=== PATIENT | male | born 1945 | race Caucasian/White ===

== ENCOUNTER → 2016-07-09 | Outpatient (CLI) | payer BC, OTHER, MEDICARE ==
[~2016-07-09] MED LIST: /TAMS4CA PO; ACTE80IN IV; AMAN10CA PO; CARB25TA OR; CARB25TA PO; FOLI1TAB2 PO; FOLI1TAB86 PO; IBUP-1114 PO; IBUP200T2 PO; MIRA1TAB3 PO; MODA200T PO; PRAM1TAB PO; PROP10TA56 PO; PROP10TA8 PO; SELEGILINE PO; SULF500T2 PO; TYLE325T5 PO; [UNRECOGNIZED DRUG - CODE] PO; [UNRECOGNIZED DRUG - CODE] PO; [UNRECOGNIZED DRUG - OTHER] PO; [UNRECOGNIZED DRUG - OTHER] PO
[2016-07-09 11:43] LABS: MEAN CORPUSCULAR HEMOGLOBIN 33.8 pg (27.0-33.0); MEAN CORPUSCULAR HGB CONC 33.7 g/dl (32.0-36.5); MEAN CORPUSCULAR VOLUME 100.2 fl (80.0-96.0); WHITE BLOOD COUNT 3.2 K/mm3 (4.0-10.0)
--- NOTE | 2016-07-09 11:49 | REP ---
Chest two views HISTORY: Arthritis Comparison: 03/27/2012 The lungs are clear. The cardiac silhouette is enlarged. The pulmonary vasculature is normal in appearance. The bony structure is intact. IMPRESSION: Cardiomegaly. Signed by Tab Ferguson MD 07/09/2016 11:39 A
[2016-07-09 12:01] LABS: INR 1.05
[2016-07-09 12:58] LABS: ALBUMIN 3.9 GM/DL (3.2-5.2); ALBUMIN/GLOBULIN RATIO 1.63 (1.00-1.93); ALKALINE PHOSPHATASE 106 U/L (45-117); ALT/SGPT 12 U/L (12-78); ANION GAP 8 MEQ/L (8-16); AST/SGOT 13 U/L (15-37); BILIRUBIN,TOTAL 0.7 MG/DL (0.2-1.0); BLOOD UREA NITROGEN 22 MG/DL (7-18); CALCIUM LEVEL 9.1 MG/DL (8.8-10.2); CARBON DIOXIDE LEVEL 29 MEQ/L (21-32); CHLORIDE LEVEL 105 MEQ/L (98-107); GLOMERULAR FILTRATION RATE > 60.0 (>42); GLUCOSE, FASTING 79 MG/DL (83-110); POTASSIUM SERUM 4.3 MEQ/L (3.5-5.1); SODIUM LEVEL 142 MEQ/L (136-145); TOTAL PROTEIN 6.3 GM/DL (6.4-8.2)
--- NOTE | 2016-07-10 05:27 | ECGEPIP ---
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
== END ==
LOC: M ADMPAT 09:28
PROVIDERS: ATTEND Orthopaedic Surgery
DX: Z01.818 Encounter for other preprocedural examination (principal); M17.12 Unilateral primary osteoarthritis, left knee

== ENCOUNTER 2016-07-23 05:43 | Inpatient (IN) | payer BC, OTHER, MEDICARE ==
[2016-07-09 10:15] VITALS: BP 97/60
--- NOTE | 2016-07-21 10:33 | HPE ---
DATE OF ADMISSION: 07/23/2016 ATTENDING PHYSICIAN: Tacos Morgan MD CHIEF COMPLAINT: Left knee pain and stiffness. HISTORY: The patient is a pleasant 70-year-old male with progressively worsening left knee pain and stiffness. He has failed to improve with conservative management. He continues to have left knee pain with weightbearing activities and activities of daily living. He has consented for a left total knee arthroplasty by Dr. Morgan. Medical clearance obtained and reviewed. Medical optimization completed by Dr. Hair. CURRENT MEDICATIONS: - ibuprofen 800 mg daily - propranolol 10 mg orally as needed for tremors - sinemet 25/100 mcg two tablets at breakfast, two at lunch, one at dinnertime, one at bedtime - mirapex 1 mg three times daily - amantidine 100 mg three times daily - sulfasalazine 500 mg three tablets twice daily - folic acid 1 mg daily - Actemra 80 mg/4 mL solution intravenous (IV) monthly - Viagra 100 mg tablet, 1/2 to one tablet once daily as needed - UltraPro 5 mg capsules daily ALLERGIES: The patient is on an MAOI-B inhibitor. 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 The patient is taking immunosuppressants. SURGICAL HISTORY: Left wrist fractures, colonoscopy, left inguinal hernia repair, transurethral resection of prostate (TURP). SOCIAL HISTORY: The patient is a former smoker. Quit over 10 years ago. He does use alcohol, approximately 2-4 times a month. REVIEW OF SYSTEMS: The patient denies fevers, chills, nausea, vomiting, or diarrhea. He denies chest pain, shortness of breath, lightheadedness, dizziness , or headaches. He denies any recent upper respiratory tract infection or urinary tract infection symptoms. He does have continued left knee pain with weightbearing activities. EXAMINATION: A well nourished, well developed male, in no apparent distress. NECK: Supple without lymphadenopathy or jugular venous distention. LUNGS: Clear to auscultation bilaterally. No rales or wheezes. HEART: Regular rate and rhythm. ABDOMEN: Bowel sounds present. Abdomen soft and nontender to palpation. MUSCULOSKELETAL: Inspection of the left knee revealed no gross abnormalities. His skin is intact. There was tenderness to palpation along the medial joint line. The patient can extend to 5 degrees and flex to 95 degrees. He does have normal strength in the left lower extremity. He is walking today with a slight limp favoring the left side. VITAL SIGNS: Height 68 inches. Weight 194 pounds. Temperature 96.8 degrees Fahrenheit. Blood pressure is 130/90. Pulse is 64. Respirations are 12. LABORATORY DATA: Chest x-ray shows cardiomegaly. Electrocardiogram (EKG) shows sinus bradycardia with a left anterior fascicular block, incomplete right bundle branch block, nonspecific ST-T wave abnormalities. No significant change when compared to tracing from March 2012. Nasal and sinus culture shows normal omar. Urinalysis positive for only trace ketones and small amount of mucus. Urine culture shows no growth of clinical significance. Comprehensive metabolic profile: Fasting glucose decreased at 79, blood urea nitrogen elevated at 22, creatinine for GFR 0.90. Glomerular filtration rate greater than 60. Sodium 142, potassium 4.3, chloride 105, carbon dioxide 29, anion gap 8, calcium 9.1, AST decreased at 13, ALT 12, alkaline phosphatase 106, total bilirubin 0.7, total protein decreased at 6.3, albumin 3.9, albumin globulin ratio 1.63. Complete blood count, prothrombin time 13.8, INR 1.05, erythrocyte sedimentation rate 1, WBC is decreased at 3.2, RBC is 4.37, hemoglobin 14.8, hematocrit 43.8, mean corpuscular volume elevated at 100.2, mean corpuscular hemoglobin elevated at 33.8, red cell distribution was13, platelet count 208. IMPRESSION: Left knee degenerative arthritis. PLAN: The patient has consented for an elective left total knee arthroplasty with Dr. Morgan. Medical optimization received from Dr. Hair. MARVIN
[~2016-07-23] VITALS: Ht 175.3 cm; Wt 86.0 kg
[2016-07-23] MEDS ORDERED: ACETAMINOPHEN 500 MG TAB PO ONE (06:00)
[2016-07-23] MEDS ORDERED: LR 1,000 ML IV SCH ×2 (06:00→09:45)
[2016-07-23] MEDS ORDERED: fentaNYL 100 MCG/2 ML INJECTION (J3010) As Ordered ONE ×2 (06:38→07:21)
[2016-07-23] MEDS ORDERED: MIDAZOLAM INJ 2 MG/2 ML VIAL (J2250) As Ordered ONE (06:38)
[2016-07-23] MEDS ORDERED: ROPIvacaine 0.5% 30 ML INJECTION (J2795) As Ordered ONE (07:00)
[2016-07-23] MEDS ORDERED: TRANEXAMIC ACID 100 MG/ML 10ML VIAL As Ordered ONE (07:00)
[2016-07-23] MEDS ORDERED: BUPIVACAINE HCL 0.5% 10 ML VIAL As Ordered ONE ×2 (07:01→07:41)
[2016-07-23] MEDS ORDERED: ceFAZolin 1GM INJ (J0690) As Ordered ONE (07:01)
[2016-07-23] MEDS ORDERED: EPINEPHrine INJ 1 MG/ML 1ML VIAL/AMP As Ordered ONE (07:01)
[2016-07-23] MEDS ORDERED: MIDAZOLAM INJ 2 MG/2 ML VIAL (J2250) IV ONE (07:45)
[2016-07-23] MEDS ORDERED: fentaNYL 100 MCG/2 ML INJECTION (J3010) IV ONE (07:45)
[2016-07-23] MEDS ORDERED: PROPOFOL 500 MG/50 ML VIAL As Ordered ONE (08:18)
[2016-07-23] MEDS ORDERED: ONDANSETRON 4MG/2ML VIAL (J2405) As Ordered ONE (08:18)
[2016-07-23] MEDS ORDERED: LIDOCAINE 2% INJ 100 MG/5 ML SDV (FOR ANES.) As Ordered ONE (08:18)
[2016-07-23] MEDS ORDERED: ROPIvacaine 0.5% 30 ML INJECTION (J2795) ONE (08:55)
[2016-07-23] MEDS ORDERED: LIDOCAINE 1% MDV 20ML VIAL ONE (08:55)
[2016-07-23] MEDS ORDERED: dexameTHASONE 10 MG/1 ML VIAL PRES.FREE (J1100) ONE (08:55)
[2016-07-23] MEDS ORDERED: MORPHINE PCA 1MG/ML 100ML CADD As Ordered ONE (09:28)
[2016-07-23] MEDS ORDERED: PATIENT IS CURRENTLY ON AN ON-Q PAIN BUSTER PAIN RELIEF SYSTEM XX SCH (09:45)
[2016-07-23] MEDS ORDERED: NALBUPHINE HCL 10 MG/ML AMP (J2300) IV PRN (09:45)
[2016-07-23] MEDS ORDERED: NALOXONE INJ 0.4 MG/1 ML VIAL (J2310) IV PRN (09:45)
[2016-07-23] MEDS ORDERED: FLEET ENEMA PR PRN (09:45)
[2016-07-23] MEDS ORDERED: EPIDURAL/PCA KEYS XX PRN (09:45)
[2016-07-23] MEDS ORDERED: HYDROmorphone HCL 1 MG/ML SYRINGE (J1170) IV PRN (09:45)
[2016-07-23] MEDS ORDERED: PERCOCET 5MG/325MG TAB PO PRN (09:45)
[2016-07-23] MEDS ORDERED: ACETAMINOPHEN TAB 650MG DOSE (2X325MG) PO PRN (09:45)
[2016-07-23] MEDS ORDERED: diphenhydrAMINE INJ 50MG/ML VIAL (J1200) IV PRN (09:45)
[2016-07-23] MEDS ORDERED: MORPHINE PCA 1MG/ML 100ML CADD IV PRN (09:45)
[2016-07-23] MEDS ORDERED: fentaNYL 100 MCG/2 ML INJECTION (J3010) IV PRN (09:45)
[2016-07-23] MEDS ORDERED: ONDANSETRON 4MG/2ML VIAL (J2405) IV PRN ×2 (09:45)
--- NOTE | 2016-07-23 10:24 | RO ---
DATE OF PROCEDURE: 07/23/2016 PREPROCEDURE DIAGNOSIS: Left knee degenerative arthritis. POSTPROCEDURE DIAGNOSIS: Left knee degenerative arthritis. PROCEDURE: Left total knee arthroplasty using a size 4 cruciate retaining femoral component with a size 4 tibial tray with a 10 mm rotating platform polyethylene insert and a 35 mm polyethylene button. All components were cemented The prosthesis made by [employer]. It was a PFC knee. SURGEON: Tacos Morgan MD ELECTROCARDIOGRAPH TECHNICIAN: Karolyn Rosario Bernardo ANESTHESIA: Spinal with left femoral nerve block. COMPLICATIONS: None. ESTIMATED BLOOD LOSS: Less than 20 mL. DRAIN: One PainBuster. SPECIMENS: Joint surface. DESCRIPTION OF PROCEDURE: After antibiotics were given intravenously preoperatively and a successful left femoral nerve block through the adductor canal was performed, and then a spinal anesthetic was induced. The tourniquet was placed on the left upper thigh and not inflated. The left lower extremity was then prepped and draped in the usual sterile fashion. Then, the leg was elevated. Then, after appropriate time-out, the tourniquet was inflated to 250 mmHg. A longitudinal incision was made for a medial parapatellar approach to the knee. Bovie cautery was used to coagulate crossing vessels. A medial parapatellar arthrotomy performed. Subperiosteal dissection along the proximal medial portion of the tibia was performed and then the patella everted and the knee flexed. The drill was placed down the center of the femoral canal. Distal femoral cutting block placed and set for a 5-degree valgus cut for a left knee at 10-mm resection level and was then pinned in position and the distal femoral cut performed. AP sizing jig measured for a size #4. It was pinned in position. Then, the 3-degree external rotation jig was pinned, followed by the 4-in-1 block and then the anterior and posterior chamfer cuts performed. The extramedullary tibial alignment jig was then applied, making sure we were parallel to the mechanical axis, referencing off the medial tibial condyle at 4 mm resection level. It was pinned into that position. A secondary check with the extramedullary suzanna confirmed that we appeared to be parallel. We then performed the proximal tibial osteotomy and then placed the lamina marine propulsion technician laterally and performed a completion of medial meniscectomy, removing the posterior medial osteophytes, and we placed the lamina marine propulsion technician medially and performed a completion of lateral meniscectomy with debridement of posterior and lateral osteophytes, and a spacer block at 10 mm fit very nicely with very nice symmetric flexion and extension spaces. We then exposed the proximal tibia and sized for a #4 tibial tray, which was pinned, reamed, and broached, and then followed by the trial polyethylene, and then the #3 femoral component which fit nicely, brought the knee into extension, everted the patella, and performed a patellar osteotomy, sized for a 35 button. The trial patellar component was placed, and the patellofemoral tracking was anatomic. We debrided the posterior and lateral osteophyte at this point. Then, removed all the trial components, and Rosario Bernardo prepared the cement as I prepared the bony surfaces for cementing. I drilled the lug holes for the femur, as well. Mrs. Rosario Bernardo was critical to the success of the procedure by helping to mix the cement, help to retract the soft tissues, and manipulate the knee as needed, so I could perform the operation smoothly and efficiently, help to close the wound, help to prepare the patient, amongst many other tasks. Once all the bony surfaces had copiously been irrigated and then thoroughly dried, we applied the cement on the tibia, cemented the tibial component, removed excess cement, placed the polyethylene, and then flexed the knee, and cemented the femoral component, removed all the excess cement, and then brought the knee into extension, and everted the patella, and then cemented the patellar button, removed excess cement, and we copiously pulsatile lavage irrigated out the knee joint as the cement was hardening. We then placed the tranexamic acid in the knee, then closed the apex of the wound with two #1 polydioxanone suture (PDS) sutures. The medial parapatellar was closed with a single PDS suture. Then, a running #1 Stratafix was used to close the capsule, and then the tourniquet was released. Flexion and extension of the knee was obtained and showed the capsule to have a watertight closure. The PainBuster catheter was then placed superolaterally, and then we irrigated out the deep subdermal tissues, closed the deep subdermal tissues with interrupted #2-0 PDS sutures. The skin was closed with ermelinda, covered by Adaptic dry sterile bulky dressing. He was then transferred to the recovery room in stable condition. There were no intraoperative complications.
[2016-07-23 13:00] VITALS: BP 143/65
[2016-07-23 14:00] VITALS: BP 135/63
[2016-07-23] MEDS: LR 1,000 ML IV SCH ×2 (14:29→22:00)
[2016-07-23] MEDS ORDERED: SULF50TA PO ×4 (14:29→15:42)
[2016-07-23] MEDS ORDERED: AMAN10CA PO (14:29)
[2016-07-23] MEDS ORDERED: PROPRANOLOL 10 MG TAB PO PRN (14:30)
[2016-07-23] MEDS ORDERED: CARB25TA PO (14:49)
--- NOTE | 2016-07-23 15:13 | CR ---
DATE OF CONSULTATION: 07/23/2016 PRIMARY CARE PROVIDER: Dr. Hair CONSULTING PHYSICIAN: Dr. Aquilino Morgan REASON FOR CONSULTATION: Medical management postoperative after left knee arthroplasty. HISTORY OF PRESENT ILLNESS: The patient is a 70-year-old male with past medical history significant for Parkinson's disease, rheumatoid arthritis, osteoarthritis, hyperlipidemia, benign prostatic hypertrophy (BPH), who presented for an elective left knee surgery performed by Dr. Morgan. We were consulted postoperatively for medical management. The patient tolerated the procedure well. Pain is controlled with current pain medications. The patient denies any chest pain or shortness of breath. No dizziness. No nausea. No vomiting. REVIEW OF SYSTEMS 12-point review of systems was obtained all of which was negative except for those mentioned above. PAST MEDICAL HISTORY: Significant for: 1. Parkinson's disease. 2. Rheumatoid arthritis. 3. BPH 4. Hyperlipidemia. 5. History of lung disease. 6. History of Blount's palsy. 7. Erectile dysfunction. 8. Arthritis. 9. Vitamin D deficiency. 10. Raynaud's disease. 11. Subclinical hypothyroidism. 12. Acute urinary retention with acute renal failure which had resolved. PAST SURGICAL HISTORY: Significant for left wrist fractures, left inguinal hernia repair and a transurethral resection of prostate (TURP) procedure. SOCIAL HISTORY: The patient was a former smoker, quit 10 years ago. The patient drinks occasionally. Lives at home with his . ALLERGIES: none MEDICATIONS: - ibuprofen 800 mg three times a day as needed - propranolol 10 mg as needed - Sinemet 25/100 two tablets at lunch and one tablet at dinner and one tablet at bedtime - Mirapex 1 mg orally three times a day - amantadine 100 mg orally three times a day - sulfasalazine 500 mg twice a day - folic acid 1 mg by mouth daily FAMILY HISTORY: Noncontributory. PHYSICAL FINDINGS: Blood pressure was 133/70, pulse 61, respiratory rate 16, pulse oximetry 98% on 3 liters nasal cannula. HEENT: Pupils equal round reactive light accommodation. NECK: Supple. No jugular venous distention (JVD). LUNGS: Clear to auscultation bilaterally. ABDOMEN: Soft, nontender, nondistended. EXTREMITIES: Left knee dressing in place. NEUROLOGIC: The patient has a generalized tremor due to Parkinson's. Cranial nerves II-XII grossly intact. No focal deficits. LABORATORY FINDINGS: None at this time. ASSESSMENT AND PLAN: 1. Left knee degenerative arthritis status post left knee arthroplasty. Postoperative day number 0. Activity, pain control, anticoagulation per surgery. The patient appears to be stable at this time. 2. History Parkinson's disease. Continue the patient's medications of carbidopa levodopa, Inderal as needed for tremors. 3. History of benign prostatic hypertrophy (BPH). 4. History of hyperlipidemia. 5. History of erectile dysfunction. 6. Deep vein thrombosis (DVT) prophylaxis. Patient is currently on Coumadin. The patient will be seen by family practice group, Dr. Hermosillo, in the morning. [id number]
[2016-07-23] MEDS: SINEMET 25-100 MG TAB PO SCH ×2 (16:42→20:48)
[2016-07-23] MEDS ORDERED: WARFARIN SOD 5 MG TAB PO SCH (17:00)
[2016-07-23 22:00] VITALS: BP 128/60
[2016-07-24 02:00] VITALS: BP 131/66
[2016-07-24 06:00] VITALS: BP 116/56
[2016-07-24] MEDS ORDERED: PERCOCET 5MG/325MG TAB PO PRN (06:45)
[2016-07-24] MEDS ORDERED: ONDANSETRON 4 MG TAB (S0181) PO PRN (06:45)
[2016-07-24 07:04] LABS: MEAN CORPUSCULAR HEMOGLOBIN 33.4 pg (27.0-33.0); MEAN CORPUSCULAR HGB CONC 33.5 g/dl (32.0-36.5); MEAN CORPUSCULAR VOLUME 99.8 fl (80.0-96.0); WHITE BLOOD COUNT 7.5 K/mm3 (4.0-10.0)
[2016-07-24 07:11] LABS: INR 1.6
[2016-07-24 07:24] LABS: ANION GAP 8 MEQ/L (8-16); BLOOD UREA NITROGEN 14 MG/DL (7-18); CALCIUM LEVEL 8.5 MG/DL (8.8-10.2); CARBON DIOXIDE LEVEL 29 MEQ/L (21-32); CHLORIDE LEVEL 104 MEQ/L (98-107); CREATININE FOR GFR 0.84 MG/DL (0.70-1.30); GLOMERULAR FILTRATION RATE > 60.0 (>42); GLUCOSE, FASTING 116 MG/DL (83-110); POTASSIUM SERUM 3.8 MEQ/L (3.5-5.1); SODIUM LEVEL 141 MEQ/L (136-145)
[2016-07-24] MEDS: PERCOCET 5MG/325MG TAB PO PRN ×4 (08:36→21:55)
[2016-07-24] MEDS: MOM 30ML SUSPENSION UDC PO SCH (08:36)
[2016-07-24] MEDS: SENOKOT S TAB PO SCH ×2 (08:36→21:54)
[2016-07-24] MEDS: FOLIC ACID 1 MG TAB PO SCH (08:36)
[2016-07-24] MEDS ORDERED: PRAMIPEXOLE 1 MG TAB PO SCH (09:00)
[2016-07-24] MEDS ORDERED: SELEGILINE HCL 5 MG TAB PO SCH (09:00)
[2016-07-24] MEDS ORDERED: MIRALAX *UNIT DOSE* 17GM PACKET PO SCH (09:00)
[2016-07-24] MEDS ORDERED: SINEMET 25-100 MG TAB PO SCH ×4 (09:00→12:30)
--- NOTE | 2016-07-24 09:48 | IPNPDOC ---
Subjective Date Seen The patient was seen on 07/24/16. Subjective Chief Complaint/HPI The patient is a 70-year-old male admitted with a reason for visit of Left Arthritis Knee. Events since last encounter s/p LEFT TKR with Dr. James Evangelista c/o. Constitutional: Denies: Chills, Fever, Night Sweats Pulmonary: Denies: Cough, Dyspnea Cardiovascular: Denies: Chest Pain, Edema, Lt Headedness, Orthopnea, Other Symptoms, Palpitations, Paroxysmal Noc. Dyspnea Gastrointestinal: Denies: Abdominal Pain, Constipation, Diarrhea, Nausea, Vomiting Genitourinary: Denies: Dysuria, Frequency, Incontinence, Retention Objective Physical Examination General Exam: Positive: Alert, No Acute Distress ENT Exam: Positive: Atraumatic, Mucous membr. moist/pink, Pharynx Normal Neck Exam: Positive: Supple, Negative: JVD, thyromegaly Chest Exam: Positive: Clear to auscultation, Normal air movement Heart Exam: Positive: Normal S1, Normal S2, Rate Normal, Regular Rhythm, Negative: Murmurs, Rubs Skin Exam: Positive: Nl turgor and temperature, Negative: Breakdown, Rash Psych Exam: Positive: Mental status NL, Mood NL, Oriented x 3 Assessment /Plan Problems (1) Status post total knee replacement, left Status: Acute Problem Text: orders per ortho for pain control (2) Parkinson disease Status: Acute Problem Text: Medications ordered per patient stated regimen. will monitor. Plan/VTE VTE Prophylaxis Ordered?: Yes (warfarin per ortho) VS, I&O, 24H, Fishbone Vital Signs/I&O Vital Signs Date Time Temp Pulse Resp B/P Pulse Ox O2 Delivery O2 Flow Rate FiO2 07/24/16 09:15 16 07/24/16 06:00 98.8 70 116/56 95 Room Air 07/23/16 20:00 2.0 I&O- Last 24 Hours up to 6 AM 07/24/16 06:00 Intake Total 2090 ml Output Total 1350 ml Balance 740 ml Laboratory Data 24H LABS Laboratory Tests 2 07/24/16 06:46: Prothromb Time International Ratio 1.60, Prothrombin Time 19.1H 07/24/16 06:47: Anion Gap 8, Blood Urea Nitrogen 14, Creatinine 0.84, Sodium Level 141, Potassium Level 3.8, Chloride Level 104, Carbon Dioxide Level 29, Calcium Level 8.5L, Glomerular Filtration Rate > 60.0 CBC/BMP Laboratory Tests 07/24/16 06:46 Red Blood Count 3.76 L, Mean Corpuscular Volume 99.8 H, Mean Corpuscular Hemoglobin 33.4 H, Mean Corpuscular Hemoglobin Concent 33.5, Red Cell Distribution Width 13.0 07/24/16 06:47 Calcium Level 8.5 L Julita Lynch DO ALL OPERATOR Jul 24, 2016 09:48
--- NOTE | 2016-07-24 11:19 | REP ---
AP LATERAL LEFT KNEE: 07/24/2016 CLINICAL HISTORY: Status post left total knee arthroplasty. FINDINGS: The two-views show anterior skin ermelinda and a drain in the surgical bed with the three components of the knee prosthesis well-aligned in relationship to each other and the [place] bone. Soft tissue swelling and some tiny subcutaneous emphysematous changes from the immediate postoperative status noted. Signed by Carlin Case MD 07/24/2016 02:57 P
[2016-07-24] MEDS: sulfaSALAzine 500 MG TABEC PO SCH (12:55)
[2016-07-24] MEDS: AMANTADINE 100 MG CAP PO SCH ×3 (13:08→21:53)
[2016-07-24 14:00] VITALS: BP 132/69
[2016-07-24 14:16] VITALS: O2SAT 94
[2016-07-24] MEDS ORDERED: MIRALAX *UNIT DOSE* 17GM PACKET PO PRN (14:45)
[2016-07-24] MEDS ORDERED: WARFARIN SOD 5 MG TAB PO ONE (17:00)
[2016-07-24] MEDS: PRAMIPEXOLE 0.25 MG TAB PO SCH ×2 (18:09→21:54)
[2016-07-24] MEDS: PRAMIPEXOLE 1 MG TAB PO SCH ×2 (18:09→21:54)
[2016-07-24] MEDS: SINEMET 25-100 MG TAB PO SCH ×2 (18:10→21:54)
[2016-07-24] MEDS ORDERED: sulfaSALAzine 500 MG TABEC PO SCH ×2 (21:00)
[2016-07-24 22:00] VITALS: BP 138/71
[2016-07-25 06:00] VITALS: BP 169/85
[2016-07-25] MEDS: PERCOCET 5MG/325MG TAB PO PRN ×2 (06:26→11:22)
[2016-07-25 06:52] LABS: MEAN CORPUSCULAR HEMOGLOBIN 33.3 pg (27.0-33.0); MEAN CORPUSCULAR HGB CONC 32.9 g/dl (32.0-36.5); MEAN CORPUSCULAR VOLUME 101.1 fl (80.0-96.0); RED CELL DISTRIBUTION WIDTH 13.3 % (11.5-14.5); WHITE BLOOD COUNT 5.9 K/mm3 (4.0-10.0)
[2016-07-25 06:58] LABS: INR 2.34
[2016-07-25 07:05] LABS: ANION GAP 7 MEQ/L (8-16); BLOOD UREA NITROGEN 13 MG/DL (7-18); CALCIUM LEVEL 8.2 MG/DL (8.8-10.2); CARBON DIOXIDE LEVEL 30 MEQ/L (21-32); CHLORIDE LEVEL 103 MEQ/L (98-107); CREATININE FOR GFR 0.82 MG/DL (0.70-1.30); GLOMERULAR FILTRATION RATE > 60.0 (>42); GLUCOSE, FASTING 98 MG/DL (83-110); POTASSIUM SERUM 3.7 MEQ/L (3.5-5.1); SODIUM LEVEL 140 MEQ/L (136-145)
[2016-07-25] MEDS ORDERED: SELEGILINE HCL 5 MG TAB PO SCH (09:00)
[2016-07-25] MEDS ORDERED: PERC5TAB6 PO (09:50)
[2016-07-25] MEDS: PRAMIPEXOLE 1 MG TAB PO SCH (09:50)
[2016-07-25] MEDS: PRAMIPEXOLE 0.25 MG TAB PO SCH (09:50)
[2016-07-25] MEDS: MOM 30ML SUSPENSION UDC PO SCH (09:51)
[2016-07-25] MEDS: SINEMET 25-100 MG TAB PO SCH ×2 (09:51→11:22)
[2016-07-25] MEDS: FOLIC ACID 1 MG TAB PO SCH (09:51)
[2016-07-25] MEDS: SENOKOT S TAB PO SCH (09:52)
[2016-07-25] MEDS: AMANTADINE 100 MG CAP PO SCH (09:52)
[2016-07-25] MEDS ORDERED: MAGNESIUM CITRATE 300 ML BTL PO ONE (10:00)
[2016-07-25] MEDS: sulfaSALAzine 500 MG TABEC PO SCH (10:38)
--- NOTE | 2016-07-30 09:49 | DSES ---
DATE OF ADMISSION: 07/23/2016 DATE OF DISCHARGE: 07/25/2016 ADMITTING DIAGNOSIS: Symptomatic left knee osteoarthritis. DISCHARGE DIAGNOSIS: Status post left total knee arthroplasty. HISTORY OF PRESENT ILLNESS: This is a pleasant 70-year-old male with continuing symptomatic left knee osteoarthritis. He has consented for left total knee arthroplasty per Dr. Aquilino Morgan. Medical optimization per Dr. Hair. X-rays are consistent with advanced osteoarthritis. OPERATION PERFORMED: Left total knee arthroplasty. HOSPITAL COURSE: The patient uneventfully underwent left total knee arthroplasty under spinal anesthesia and was returned to recovery comfortable. Our hospital team discharged the patient on 07/25/2016 with the following instructions. Weightbearing as tolerated left lower extremity with walker, Coumadin and NOEMI stockings times 30 days, diet is regular, Percocet as needed pain. Optifoam dressing change in [address] at [facility] 12-14 days for wound check, staple removal. The patient is encouraged to contact our office sooner with increased pain, redness, drainage, fever greater than 101 or any further concerns. MARVIN
== END 2016-07-25 11:40 | DRG 302 ==
LOC: M OR 05:43 → M MS5PR 12:51
PROVIDERS: ADMIT Orthopaedic Surgery; ATTEND Orthopaedic Surgery
PROC: 0SRD0J9 Replacement of Left Knee Joint with Synthetic Substitute, Cemented, Open Approach (ICD-10-PCS; principal; 2016-07-23 07:30)
DX: M17.12 Unilateral primary osteoarthritis, left knee (principal); E55.9 Vitamin D deficiency, unspecified; M06.9 Rheumatoid arthritis, unspecified; G20 Parkinson's disease; N40.0 Benign prostatic hyperplasia without lower urinary tract symptoms; E78.5 Hyperlipidemia, unspecified; N52.9 Male erectile dysfunction, unspecified; R26.89 Other abnormalities of gait and mobility; I73.00 Raynaud's syndrome without gangrene; E02 Subclinical iodine-deficiency hypothyroidism; Z79.1 Long term (current) use of non-steroidal anti-inflammatories (NSAID); Z79.899 Other long term (current) drug therapy; Z87.891 Personal history of nicotine dependence

== ENCOUNTER → 2016-07-31 | Outpatient (REF) ==
[~2016-07-31] MED LIST changes: +PERC5TAB6 PO; +SULF50TA PO
[2016-07-31 10:00] LABS: MEAN CORPUSCULAR HGB CONC 33.1 g/dl (32.0-36.5); MEAN CORPUSCULAR VOLUME 102.5 fl (80.0-96.0); RED CELL DISTRIBUTION WIDTH 13.6 % (11.5-14.5); WHITE BLOOD COUNT 7.8 K/mm3 (4.0-10.0)
[2016-07-31 10:43] LABS: ANION GAP 10 MEQ/L (8-16); BLOOD UREA NITROGEN 14 MG/DL (7-18); CALCIUM LEVEL 8.3 MG/DL (8.8-10.2); CARBON DIOXIDE LEVEL 26 MEQ/L (21-32); CHLORIDE LEVEL 103 MEQ/L (98-107); CREATININE FOR GFR 0.92 MG/DL (0.70-1.30); GLOMERULAR FILTRATION RATE > 60.0 (>42); GLUCOSE, FASTING 129 MG/DL (83-110); POTASSIUM SERUM 3.7 MEQ/L (3.5-5.1); SODIUM LEVEL 139 MEQ/L (136-145)
== END ==
PROVIDERS: ATTEND Internal Medicine
DX: G20 Parkinson's disease (principal); I73.00 Raynaud's syndrome without gangrene; M06.9 Rheumatoid arthritis, unspecified; E55.9 Vitamin D deficiency, unspecified; E02 Subclinical iodine-deficiency hypothyroidism; E78.5 Hyperlipidemia, unspecified

== ENCOUNTER → 2016-08-05 | Outpatient (REF) ==
[2016-08-05 11:13] LABS: MEAN CORPUSCULAR HEMOGLOBIN 33.2 pg (27.0-33.0); MEAN CORPUSCULAR HGB CONC 32.4 g/dl (32.0-36.5); MEAN CORPUSCULAR VOLUME 102.5 fl (80.0-96.0); RED CELL DISTRIBUTION WIDTH 13.1 % (11.5-14.5); WHITE BLOOD COUNT 6.1 K/mm3 (4.0-10.0)
[2016-08-05 11:23] LABS: ANION GAP 6 MEQ/L (8-16); BLOOD UREA NITROGEN 16 MG/DL (7-18); CALCIUM LEVEL 8.7 MG/DL (8.8-10.2); CARBON DIOXIDE LEVEL 34 MEQ/L (21-32); CHLORIDE LEVEL 101 MEQ/L (98-107); CREATININE FOR GFR 0.85 MG/DL (0.70-1.30); GLOMERULAR FILTRATION RATE > 60.0 (>42); GLUCOSE, FASTING 101 MG/DL (83-110); SODIUM LEVEL 141 MEQ/L (136-145)
== END ==
PROVIDERS: ATTEND Internal Medicine
DX: Z96.652 Presence of left artificial knee joint (principal)

== ENCOUNTER → 2016-08-11 | Outpatient (REF) | payer OTHER, MEDICARE ==
[2016-08-11 14:41] LABS: INR 2.49
== END ==
LOC: M LABDRAWP 12:54
PROVIDERS: ATTEND Physician Assistant
DX: Z79.01 Long term (current) use of anticoagulants (principal); Z86.718 Personal history of other venous thrombosis and embolism

== ENCOUNTER → 2016-08-14 | Outpatient (REF) | payer OTHER, MEDICARE ==
[2016-08-14 14:16] LABS: INR 2.11
== END ==
LOC: M LABDRAW1 12:46
PROVIDERS: ATTEND Orthopaedic Surgery
DX: Z79.01 Long term (current) use of anticoagulants (principal)

== ENCOUNTER → 2016-08-18 | Outpatient (REF) | payer OTHER, MEDICARE ==
[2016-08-18 13:00] LABS: INR 2.54
== END ==
LOC: M LABDRAW1 12:43
PROVIDERS: ATTEND Orthopaedic Surgery
DX: Z79.01 Long term (current) use of anticoagulants (principal)

== ENCOUNTER → 2016-08-20 | Outpatient (CLI) | payer BC, OTHER, MEDICARE ==
--- NOTE | 2016-08-20 16:38 | REP ---
Duplex extremity venous ultrasound: Left lower extremity: History: The patient status post left knee replacement 1 month ago. Left leg edema. Question DVT. Findings: The deep veins are anechoic and fully compressible from the groin to the popliteal fossa in the left lower extremity. Color flow imaging is homogeneous. Spectral Doppler interrogation demonstrates intact respiratory variation in flow and normal manual augmentation of flow. There is no evidence of deep vein thrombosis. There is a 5.9 x 2.0 x 3.6 cm cystic area in the left posteromedial popliteal fossa consistent with a Camarena's cyst. Impression: 5.9 cm Camarena's cyst, otherwise negative left lower extremity duplex venous ultrasound. No evidence of deep vein thrombosis. Signed by Quintin Kowalski MD 08/21/2016 12:51 P
== END ==
LOC: M RAD 14:50
PROVIDERS: ATTEND Physician Assistant Surgical
DX: R60.0 Localized edema (principal)

== ENCOUNTER → 2016-10-02 | Outpatient (REF) | payer OTHER ==
[2016-10-02 13:08] LABS: ALBUMIN 3.6 GM/DL (3.2-5.2); ALBUMIN/GLOBULIN RATIO 1.44 (1.00-1.93); ALKALINE PHOSPHATASE 151 U/L (45-117); ALT/SGPT 8 U/L (12-78); ANION GAP 7 MEQ/L (8-16); AST/SGOT 12 U/L (15-37); BILIRUBIN,TOTAL 0.6 MG/DL (0.2-1.0); BLOOD UREA NITROGEN 22 MG/DL (7-18); CALCIUM LEVEL 8.5 MG/DL (8.8-10.2); CARBON DIOXIDE LEVEL 29 MEQ/L (21-32); CHLORIDE LEVEL 106 MEQ/L (98-107); CHOLESTEROL LEVEL 208 MG/DL (<200); CREATININE FOR GFR 0.94 MG/DL (0.70-1.30); FREE T4 1.03 NG/DL (0.76-1.46); GLOMERULAR FILTRATION RATE > 60.0 (>42); GLUCOSE, FASTING 85 MG/DL (83-110); POTASSIUM SERUM 4.5 MEQ/L (3.5-5.1); SODIUM LEVEL 142 MEQ/L (136-145); TOTAL PROTEIN 6.1 GM/DL (6.4-8.2); TRIGLYCERIDES LEVEL 57 MG/DL (<150)
[2016-10-02 13:11] LABS: MEAN CORPUSCULAR HEMOGLOBIN 33.5 pg (27.0-33.0); MEAN CORPUSCULAR HGB CONC 33.1 g/dl (32.0-36.5); MEAN CORPUSCULAR VOLUME 101.3 fl (80.0-96.0); RED CELL DISTRIBUTION WIDTH 13.4 % (11.5-14.5); WHITE BLOOD COUNT 3.6 K/mm3 (4.0-10.0)
== END ==
LOC: M SFHCADAM 08:39
PROVIDERS: ATTEND Family Medicine
DX: G20 Parkinson's disease (principal); E78.4 Other hyperlipidemia; E03.9 Hypothyroidism, unspecified

== ENCOUNTER → 2016-10-22 | Outpatient (CLI) | payer BC, OTHER ==
[~2016-10-22] MED LIST changes: +AMAN100C18 PO; -FOLI1TAB2 PO; +FOLI1TAB4 PO; +PERC5TAB12 PO; -PERC5TAB6 PO; +SELE5CAP PO; -[UNRECOGNIZED DRUG - CODE] PO
--- NOTE | 2016-11-13 00:32 | ECWPNPC ---
PATIENT NAME: GENARO MARTINEZ : 1945 GENDER: MALE VISIT DATE: 10/22/2016 DISCHARGE DATE: 10/22/16 1051 VISIT LOCKED DATE TIME: PHYSICIAN: WANDA LEUNG PHYSICIAN PAGER NO: [phone] RESOURCE: WANDA LEUNG REASON FOR APPOINTMENT 1. BACK PAIN HISTORY OF PRESENT ILLNESS FALL RISK SCREENING: SCREENING :NO FALLS IN THE PAST YEAR 70 Y/O MALE REFERRED BY DR. PICKERING FOR CHRONIC LOW BACK PAIN.PAIN BEGAN SEVERAL YEARS AGO WITHOUT PRECIPITATING EVENT.HAS BECOME WORSE OVER THE PAST FEW YEARS DUE TO LIMPING BECAUSE OF KNEE PROBLEMS.HAD LEFT KNEE REPLACEMENT July AND IS DOING WELL.RATING PAIN VAS 4/10.PAIN IS AGGREVATED BY PROLONGED WALKING OR WHEN GOING FROM SITTING TO STANDING.DESCRIBES SPASM LIKE PAIN IN LOW BACK.PAIN RELIEVED SOMEWHAT WITH STRETCHING AND PRESSURE.DENIES RECENT FEVER,ILLNESS OR WEIGHT LOSS.DENIES BOWEL OR BLADDER INCONTINENECE. PAIN SCREENING: PATIENT HAS A COMPLAINT OF ACUTE OR CHRONIC PAIN :YES CURRENT MEDICATIONS TAKING IBUPROFEN 800 MG TABLET 1 TABLET ORALLY THREE TIMES A DAY NEEDED TAKING PROPRANOLOL HCL 10 MG TABLET 1 TABLET ORALLY NEEDED FOR TREMORS TAKING SINEMET 25-100 MG ? DOSE TABLET 2 TABS ORALLY 2 AT BREAKFAST, 2 AT LUNCH 1 AT DINNER AND 1AT BEDTIME TAKING MIRAPEX 1 MG TABLET 1 TABLETS ([employer]) ORALLY THREE TIMES A DAY TAKING AMANTADINE HCL 100 MG CAPSULE 1 CAPSULE([employer]) ORALLY THREE TIMES A DAY TAKING SULFASALAZINE 500 MG TABLET 3 TABLETS ORALLY TWICE A DAY TAKING FOLIC ACID 1 MG TABLET 1 TABLET ORALLY ONCE A DAY TAKING ACTEMRA 80 MG/4ML SOLUTION INTRAVENOUS MONTHLY, NOTES: DR ALLEN, MONTHLY TAKING VIAGRA 100 MG TABLET 1/2 -1 TABLET NEEDED ORALLY ONCE DAILY NEEDED TAKING ELDEPRYL 5 MG CAPSULE 1 CAPSULE ([facility]) ORALLY ONCE A DAY MEDICATION LIST REVIEWED AND RECONCILED WITH THE PATIENT PAST MEDICAL HISTORY PARKINSONS DISEASE RHEUMATOID ARTHRITIS, SERONEGATIVE-ADA ALLEN SY/RHEUM BPH HYPERLIPIDEMIA (HDL> 100) 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; TREATED BY RHEUM PROPHYLACTICALLY 08/[address] BITE IN CT SYKES'S PALSY, L ERECTILE DYSFUNCTION SEVERE/DISABLING ARTHRITIS L & R WRIST FRACTURE L WRIST X 2 VITAMIN D DEFICIENCY NEG STRESS TEST VASOSPASM/ RAYNAUD'S IMMUNOSUPRESSANT TX--DR Monica ALLEN SYR SUBCLINICAL HYPOTHYROIDISM, TSH SL ELEV, FREE T4 NL, NEG THYROID AB 03/28 ACUTE URINARY RETENTION WITH ARF/ENCEPHALOPATHY 03/24 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 NEGATIVE FOR PROSTATE CANCER OR ANY OTHER UROLOGIC DISEASE. SOCIAL HISTORY GENERAL: TOBACCO USE ARE YOU A:: FORMER SMOKER , HOW LONG HAS IT BEEN SINCE YOU LAST SMOKED?: > 10 YEARS. ALCOHOL SCREENING DID YOU HAVE A DRINK CONTAINING ALCOHOL IN THE PAST YEAR?YES HOW OFTEN DID YOU HAVE A DRINK CONTAINING ALCOHOL IN THE PAST YEAR?TWO TO FOUR TIMES A MONTH (2 POINTS) HOW MANY DRINKS DID YOU HAVE ON A TYPICAL DAY WHEN YOU WERE DRINKING IN THE PAST YEAR?1 OR 2 (0 POINTS) HOW OFTEN DID YOU HAVE SIX OR MORE DRINKS ON ONE OCCASION IN THE PAST YEAR?NEVER (0 POINTS) POINTS2 INTERPRETATIONNEGATIVE RECREATIONAL DRUG USE DRUG USE?NO CAFFEINE CAFFEINE USE?NO SEXUAL HX HAD SEX IN THE LAST 12 MONTHS (VAGINAL, ORAL, OR ANAL)?YES WITHWOMEN ONLY USE PROTECTION?NO PREVENTION STRATEGIES DISCUSSED:CONDOMS HAVE YOU EVER HAD AN STD?NO HIV / HEP-C SCREENING HIV TEST OFFERED TO PATIENT:NO HEP-C TEST OFFERED TO PATIENT:NO DIET: NO ADDED SALT. EXERCISE: RESISTANCE TRAINING, WALKS. MARITAL STATUS: --PATRICIO. EDUCATION LEVEL OF EDUCATION:PROFESSIONAL SCHOOLS/MASTERS/PHD LEARNING BARRIERS / SPECIAL NEEDS CHANGE FROM LAST VISIT?NO BARRIERS TO LEARNING?NO HEARING IMPAIRED?NO VISION IMPAIRED?NO COGNITIVELY IMPAIRED?NO READINESS TO LEARN?YES LEARNING PREFERENCES?NO LEARNING CAPABILITIES PRESENT?YES EMOTIONAL BARRIERS?NO SPECIAL DEVICES?NO GIS ANALYST NEEDED?NO ADVANCE DIRECTIVES HEALTH CARE PROXY?YES NAME OF HCP C PATRICIO MARTINEZ- DO YOU HAVE A DNR?YES LIVING WILL?YES POWER OF WASTEWATER ENGINEER?YES NAME OF POA? C PATRICIO MARTINEZ- REVIEWED, NO CHANGES. REVIEW OF SYSTEMS REVIEWED BY: PROVIDER: WANDA HARRIS . CONSTITUTIONAL: ANY CHANGE IN YOUR MEDICAL CONDITION? NO . CHILLS NO . FEVER NO . INFECTION: DO YOU HAVE NEW INFECTIONS? NO . DO YOU HAVE HISTORY OF MRSA? NO . MUSCULOSKELETAL: ANY NEW PATTERNS OF PAIN OR NUMBNESS? NO . SYTEMIC LUPUS NO . GASTROENTEROLOGY: ANY NEW CHANGE IN BOWEL CONTROL? NO . BARRETTS ESOPHAGUS NO . CIRRHOSIS NO . HEPATITIS NO . LIVER FAILURE NO . ACID REFLUX NO . UNEXPLAINED WEIGHT LOSS NO . GENITOURINARY: ANY NEW CHANGE IN BLADDER CONTROL? NO . IS THERE A CHANCE YOU COULD BE ? NO . HEMATOLOGY/LYMPH: DO YOU TAKE ANY BLOOD THINNERS? (FOR EXAMPLE- COUMADIN, PLAVIX, AGGRENOX, PLATEL, PRADAXA, OR XARELTO) NO, PT STATES HE TOOK COUMADIN POST OP, STOPPED 07/2016 . WHEN WAS YOUR LAST DOSE? DATE: TIME: . LOW PLATELET COUNT NO . SICKLE CELL DISEASE NO . VON WILLIEBRANDS NO . FACTOR V LEIDEN NO . THALLASEMIA NO . ANEMIA NO . EASY BRUISING NO . NEUROLOGY: HAVE YOU FALLEN IN THE PAST 6 MONTHS? YES, PT STATES HE TRIPPED ON EDGE OF SIDEWALK . ANY NEW EXTREMITY NUMBNESS OR WEAKNESS? NO . HEAD INJURY NO . DEMENTIA NO . CEREBRAL PALSY NO . MULTIPLE SCLEROSIS NO . DIZZINESS NO . HEADACHE NO . STROKES NO . VERTIGO NO . CARDIOLOGY: DO YOU HAVE A PACEMAKER OR DEFIBRILLATOR? NO . ANGINA NO . HEART ATTACK NO . HEART SURGERY NO . CONGESTIVE HEART FAILURE/FLUID OVERLOAD NO . CHEST PAIN NO . HIGH BLOOD PRESSURE NO . IRREGULAR HEART BEAT NO . RESPIRATORY: HAVE YOU BEEN SICK IN THE PAST WEEK? NO . FEVER NO . FLU LIKE SYMPTOMS? NO . CPAP NO . BYPAP NO . ASTHMA NO . EMPHYSEMA NO . CHRONIC LUNG DISEASES NO . SHORTNESS OF BREATH ON EXERTION NO . COUGH NO . SNORING NO . INTEGUMENTARY: DO YOU HAVE ANY RASHES OR OPEN SORES? NO . ALLERGIC/IMMUNO: ARE YOU ALLERGIC TO SHELLFISH OR IV DYE? NO . ANY NEW ALLERGIES? NO . PSYCHIATRIC: DO YOU HAVE THOUGHTS OF HURTING YOURSELF OR SOMEONE ELSE? NO . ARE YOU ABUSED, NEGLECTED, OR IN AN UNSAFE ENVIRONMENT? NO . ENDOCRINOLOGY: ARE YOU DIABETIC? NO . THYROID DISORDER NO . OTHER: DO YOU NEED ANY PRESCRIPTIONS? NO . IF YES, PLEASE LIST: ____ . ANY NEW PROBLEMS WITH YOUR MEDICATIONS? NO . WHEN DID YOU LAST EAT? ____ . WHEN DID YOU LAST DRINK? ____ . WHAT DID YOU LAST DRINK? ____ . NAME OF PERSON DRIVING YOU HOME? ____ . DO YOU HAVE ANY OTHER QUESTIONS OR CONCERNS NO . VITAL SIGNS WT 1191.6 LBS, HT 69 IN, BMI 175.95 INDEX, BP 147/88 MM HG, HR 68 /MIN, RR 18 /MIN, TEMP 97.1 F, OXYGEN SAT % 96%, SAFE IN ENV? (Y/N) Y, NA INITIALS TL 0935, REVIEWED BY: MARYCHUY. EXAMINATION GENERAL EXAMINATION: GENERAL APPEARANCE:COMFORTABLE, LOOKS WELL. PSYCHAFFECT NORMAL, ORIENTED TO PERSON, ORIENTED TO PLACE, ORIENTED TO TIME. NECK:NO LYMPHADENOPATHY. LUNGS:LUNG GARIBAY ARE CLEAR TO AUSCULTATION BILATERALLY. GOOD MOVEMENT OF AIR. HEART:S1, S2 IN A REGULAR RATE AND RHYTHM. NO SIGNIFICANT MURMURS, RUBS OR GALLOPS NOTED. ABDOMEN:SOFT, NON-TENDER, NO ORGANOMEGALY, BOWEL SOUNDS ARE NORMAL. LUMBAR SPINE/LOWER BACK: PALPATION:MODERATE, RIGHT, PARASPINAL TENDERNESS.SPECIFIC POINT TENDERNESS OVER RSIJ. MOTOR SYSTEM:5/5 BLE. SENSORY EXAM:NORMAL BILATERAL LE. 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 OTHERS NOTES: ANATOMY OF THE SACROILIAC JOINT MATERIAL WAS PRINTED, REVIEWED AND GIVEN TO PT. PROCEDURE CODES FA211 ESTABILISHED PATIENT [facility] FACILITY CHARGE DISPOSITION & COMMUNICATION FOLLOW UP 2WK POST (REASON: RIGHT SIJ) ELECTRONICALLY SIGNED BY STEVEN ARTHUR ON 11/12/2016 AT 07:30 PM EDT DISCLAIMER : THIS IS A VISIT SUMMARY EXTRACTED FROM THE [employer] CHART. IT IS NOT A COPY OF THE [employer] PROGRESS NOTE. MARVIN
== END ==
LOC: M PAIN 09:15
PROVIDERS: ATTEND Nurse Practitioner Family
DX: G89.29 Other chronic pain (principal); M48.06 Spinal stenosis, lumbar region; M46.1 Sacroiliitis, not elsewhere classified; G20 Parkinson's disease; M06.9 Rheumatoid arthritis, unspecified; E78.4 Other hyperlipidemia; E55.9 Vitamin D deficiency, unspecified; I73.00 Raynaud's syndrome without gangrene; E03.9 Hypothyroidism, unspecified; G25.0 Essential tremor; Z88.8 Allergy status to other drugs, medicaments and biological substances; Z79.899 Other long term (current) drug therapy; Z87.891 Personal history of nicotine dependence

== ENCOUNTER → 2016-11-19 | Outpatient (CLI) | payer BC, OTHER ==
[~2016-11-19] MED LIST changes: +BUPIVACAINE HCL 0.25% 30 ML VIAL As Ordered ONE; +ISOVUE-M 300 61% 15ML VIAL (Q9967) As Ordered ONE; +LIDOCAINE 1% SDV INJ 30 ML VIAL As Ordered ONE; +TRIAMCINOLONE ACETONIDE SUSP 40 MG/ML VIAL (J3301) As Ordered ONE
--- NOTE | 2016-11-19 17:18 | REP ---
FLUOROSCOPIC GUIDANCE: The images were reviewed with Dr. Alex. The patient has a history of low back pain. The portable C-ARM was provided in the OR for Dr. Patterson for fluoroscopic guidance. 3 intraoperative fluoroscopic spot films were obtained for needle placement verification for right SI joint injection. The films are on the PACS system and are available for review. 30 seconds of fluoroscopic time was utilized for this procedure. Reviewed by VIVI Boston 11/20/2016 05:30 PEdited and Signed by James Alex MD 11/21/2016 04:56 P
--- NOTE | 2016-12-09 00:17 | ECWPNPC ---
PATIENT NAME: GENARO MARTINEZ : 1945 GENDER: MALE VISIT DATE: 11/19/2016 DISCHARGE DATE: 11/19/16 1303 VISIT LOCKED DATE TIME: PHYSICIAN: JOSÉ MIGUEL BAER PHYSICIAN PAGER NO: [phone] RESOURCE: JOSÉ MIGUEL BAER REASON FOR APPOINTMENT 1. SIJ HISTORY OF PRESENT ILLNESS HISTORY OF PRESENT ILLNESS: PAIN THE PATIENT DESCRIBES THE PAIN... FALL RISK SCREENING: SCREENING :TWO OR MORE FALLS WITHOUT INJURY IN THE PAST YEAR CURRENT MEDICATIONS TAKING IBUPROFEN 800 MG TABLET 1 TABLET ORALLY THREE TIMES A DAY NEEDED, NOTES: 1 WEEK AGO TAKING PROPRANOLOL HCL 10 MG TABLET 1 TABLET ORALLY NEEDED FOR TREMORS, NOTES: 2 WEEKS AGO TAKING SINEMET 25-100 MG ? DOSE TABLET 2 TABS ORALLY 2 AT BREAKFAST, 2 AT LUNCH 1 AT DINNER AND 1AT BEDTIME, NOTES: 11/18/16@2300 TAKING MIRAPEX 1 MG TABLET 1 TABLETS ([employer]) ORALLY THREE TIMES A DAY, NOTES: 11/18/16@1200 TAKING AMANTADINE HCL 100 MG CAPSULE 1 CAPSULE(MEG) ORALLY THREE TIMES A DAY, NOTES: 11/18/16@1200 TAKING SULFASALAZINE 500 MG TABLET 3 TABLETS ORALLY TID, NOTES: 11/18/16@2200 TAKING FOLIC ACID 1 MG TABLET 2 ORALLY ONCE A DAY, NOTES: @1200 TAKING ACTEMRA 80 MG/4ML SOLUTION INTRAVENOUS MONTHLY, NOTES: 15 DAYS AGO TAKING VIAGRA 100 MG TABLET 1/2 -1 TABLET NEEDED ORALLY ONCE DAILY NEEDED, NOTES: 2 WEEKS TAKING ELDEPRYL 5 MG CAPSULE 1 CAPSULE ([employer]) ORALLY ONCE A DAY, NOTES: 11/17/16@0800 MEDICATION LIST REVIEWED AND RECONCILED WITH THE PATIENT PAST MEDICAL HISTORY PARKINSONS DISEASE RHEUMATOID ARTHRITIS, SERONEGATIVE-ADA ALLEN SY/RHEUM BPH HYPERLIPIDEMIA (HDL> 100) 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; TREATED BY RHEUM PROPHYLACTICALLY 08/[address] BITE IN CT SYKES'S PALSY, L ERECTILE DYSFUNCTION SEVERE/DISABLING ARTHRITIS L & R WRIST FRACTURE L WRIST X 2 VITAMIN D DEFICIENCY NEG STRESS TEST VASOSPASM/ RAYNAUD'S IMMUNOSUPRESSANT TX--DR Monica ALLEN SYR SUBCLINICAL HYPOTHYROIDISM, TSH SL ELEV, FREE T4 NL, NEG THYROID AB 03/28 ACUTE URINARY RETENTION WITH ARF/ENCEPHALOPATHY 03/24 DDD/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 CONSTITUTIONAL: ANY CHANGE IN YOUR MEDICAL CONDITION? NO . CHILLS NO . FEVER NO . INFECTION: DO YOU HAVE NEW INFECTIONS? NO . DO YOU HAVE HISTORY OF MRSA? NO . MUSCULOSKELETAL: ANY NEW PATTERNS OF PAIN OR NUMBNESS? NO . GASTROENTEROLOGY: ANY NEW CHANGE IN BOWEL CONTROL? NO . GENITOURINARY: ANY NEW CHANGE IN BLADDER CONTROL? NO . IS THERE A CHANCE YOU COULD BE ? NO . HEMATOLOGY/LYMPH: DO YOU TAKE ANY BLOOD THINNERS? (FOR EXAMPLE- COUMADIN, PLAVIX, AGGRENOX, PLATEL, PRADAXA, OR XARELTO) NO . WHEN WAS YOUR LAST DOSE? DATE: TIME: . NEUROLOGY: HAVE YOU FALLEN IN THE PAST 6 MONTHS? YES . ANY NEW EXTREMITY NUMBNESS OR WEAKNESS? NO . CARDIOLOGY: DO YOU HAVE A PACEMAKER OR DEFIBRILLATOR? NO . RESPIRATORY: HAVE YOU BEEN SICK IN THE PAST WEEK? NO . FEVER NO . FLU LIKE SYMPTOMS? NO . COUGH NO . INTEGUMENTARY: DO YOU HAVE ANY RASHES OR OPEN SORES? NO . ALLERGIC/IMMUNO: ARE YOU ALLERGIC TO SHELLFISH OR IV DYE? NO . ANY NEW ALLERGIES? NO . PSYCHIATRIC: DO YOU HAVE THOUGHTS OF HURTING YOURSELF OR SOMEONE ELSE? NO . ARE YOU ABUSED, NEGLECTED, OR IN AN UNSAFE ENVIRONMENT? NO . ENDOCRINOLOGY: ARE YOU DIABETIC? NO . OTHER: DO YOU NEED ANY PRESCRIPTIONS? NO . IF YES, PLEASE LIST: ____ . ANY NEW PROBLEMS WITH YOUR MEDICATIONS? NO . WHEN DID YOU LAST EAT? ____0000 . WHEN DID YOU LAST DRINK? ____ . WHAT DID YOU LAST DRINK? ____WATER . NAME OF PERSON DRIVING YOU HOME? ____NATALI MARTINEZ . DO YOU HAVE ANY OTHER QUESTIONS OR CONCERNS NO . VITAL SIGNS WT 190 LBS, HT 69 IN, BMI 28.06 INDEX, BP 160/98 MM HG, HR 67 /MIN, RR 18 /MIN, TEMP 96.8 F, OXYGEN SAT % 98%, NA INITIALS AW 1028, REVIEWED BY: VD. ASSESSMENTS SACROILIITIS, NOT ELSEWHERE CLASSIFIED - M46.1 (PRIMARY) PROCEDURES PN SI PRE PROCEDURE DIAGNOSIS SACROILIITIS, SACROILIAC JOINT DYSFUNCTION POST PROCEDURE DIAGNOSIS SACROILIITIS, SACROILIAC JOINT DYSFUNCTION PROCEDURE RIGHT SACROILIAC JOINT BLOCK SURGEON DR. JOSÉ MIGUEL BAER ELECTRONIC DEVICE REPAIRER NONE ANESTHESIA LOCAL PRE PROCEDURE NOTE PATIENT WITH HISTORY OF CHRONIC LOW BACK PAIN. I EVALUATED THE PATIENT AND REVIEWED THE CHART. I WENT OVER THE RISKS, ALTERNATIVES, AND BENEFITS ASSOCIATED WITH THIS PROCEDURE. THE PATIENT WOULD LIKE TO PROCEED AND GAVE CONSENT TO PERFORM THE PROCEDURE. THE PATIENT DENIES UNEXPLAINABLE WEIGHT LOSS, FEVER, CHILLS, OR NEW CHANGES IN URINARY OR BOWEL CONTROL DESCRIPTION OF PROCEDURE THE PATIENT WAS BROUGHT TO THE PROCEDURE ROOM AND PLACED IN THE PRONE POSITION. THE LUMBOSACRAL AREA WAS CLEANED WITH CHLORAPREP SOLUTION AND DRAPED ASEPTICALLY. THE PROCEDURE WAS DONE UNDER STERILE CONDITIONS. I CHECKED LATERALITY AND THE LEVEL WHERE THE PROCEDURE WAS GOING TO BE PERFORMED WITH THE PATIENT AND THE SUPPORTING STAFF AT THE MOMENT OF THE TIME OUT IN THE PROCEDURE ROOM. UNDER FLUOROSCOPIC GUIDANCE, TARGET POINT WAS SELECTED AT THE LOWER BORDER OF THE RIGHT SACROILIAC JOINT. TARGET POINT WAS SELECTED AFTER MEDIAL ROTATION AND TILT OF THE MAGNIFIER OF THE C-ARM. LIDOCAINE WAS USED TO NUMB THE SKIN AND SUBCUTANEOUS TISSUE BELOW IT. A SPINAL NEEDLE, 22-GAUGE, WAS ADVANCED UNDER FLUOROSCOPIC GUIDANCE AND FOLLOWING PATIENT FEEDBACK UNTIL THE TARGET AREA WAS TOUCHED. THE POSITION OF THE NEEDLE WAS VERIFIED WITH AP AND LATERAL VIEWS. AFTER PROPER POSITION OF THE NEEDLE WAS ACHIEVED, ISOVUE M DYE 30%, 0.25 ML, WAS INJECTED SHOWING SPREAD OF THE DYE. THEN, A SOLUTION OF 20 MG OF KENALOG WAS INJECTED IN RIGHT JOINT WITH 3 ML OF BUPIVACAINE 0.125%. THERE WAS NO EVIDENCE OF BLOOD, PARESTHESIA OR CEREBROSPINAL FLUID DURING THE PROCEDURE. THE PATIENT WAS SENT TO THE RECOVERY ROOM. THE PATIENT WAS MOVING THE EXTREMITIES AND DOING WELL. THERE WAS NO COMPLICATION DURING THE PROCEDURE. FLUOROSCOPY TIME WAS 30 SECONDS POST PROCEDURE NOTE THE PATIENT WILL BE SEEN IN A FOLLOW UP IN THE NEXT FEW WEEKS. INSTRUCTIONS WERE GIVEN, QUESTIONS WERE ANSWERED, AND THE PATIENT EXPRESSED UNDERSTANDING AND AGREED WITH THE PLAN. I, ROBB NOVOA, DOCUMENTED THE ABOVE INFORMATION ACTING A SCRIBE FOR DR. BAER. I HAVE REVIEWED THE ABOVE DOCUMENT, WRITTEN BY ROBB SHAMPINE SCRIBE AND I VERIFY THAT IT IS [facility] FLUORO GUIDANCE (PAIN)[id number] PROCEDURE CODES 32099 INJECT SACROILIAC JOINT 6045F RADXPS IN END [id number] PXD DISPOSITION & COMMUNICATION FOLLOW UP 3 WEEKS ELECTRONICALLY SIGNED BY JOSÉ MIGUEL BAER MD ON 12/08/2016 AT 11:49 AM EDT DISCLAIMER : THIS IS A VISIT SUMMARY EXTRACTED FROM THE [employer] CHART. IT IS NOT A COPY OF THE [employer] PROGRESS NOTE. MTDD
== END ==
LOC: M PAIN 10:30
PROVIDERS: ATTEND Anesthesiology
DX: G89.29 Other chronic pain (principal); M46.1 Sacroiliitis, not elsewhere classified; M53.88 Other specified dorsopathies, sacral and sacrococcygeal region; G20 Parkinson's disease; E78.4 Other hyperlipidemia; M06.9 Rheumatoid arthritis, unspecified; E55.9 Vitamin D deficiency, unspecified; E03.9 Hypothyroidism, unspecified
CPT/HCPCS: G0260; J3301; Q9967

== ENCOUNTER → 2016-12-16 | Outpatient (CLI) | payer BC, OTHER ==
[~2016-12-16] MED LIST changes: -BUPIVACAINE HCL 0.25% 30 ML VIAL As Ordered ONE; -ISOVUE-M 300 61% 15ML VIAL (Q9967) As Ordered ONE; -LIDOCAINE 1% SDV INJ 30 ML VIAL As Ordered ONE; -TRIAMCINOLONE ACETONIDE SUSP 40 MG/ML VIAL (J3301) As Ordered ONE
--- NOTE | 2017-01-04 23:39 | ECWPNPC ---
PATIENT NAME: GENARO MARTINEZ : 1945 GENDER: MALE VISIT DATE: 12/16/2016 DISCHARGE DATE: 12/16/16 1520 VISIT LOCKED DATE TIME: PHYSICIAN: PUSHPA COLE PHYSICIAN PAGER NO: [phone] RESOURCE: PUSHPA COLE REASON FOR APPOINTMENT 1. POST SIJ HISTORY OF PRESENT ILLNESS TODAY'S VISIT: NOTES: RATES PAIN TODAY 5/10. NOTES PAIN IS INTERMITTANT, ACHINGFOR 2 WEEKS POST INJECTION HAD 100% RELIEF OF PAIN PAIN IS NOW BEGINING TO RETURN IS BETTER ABLE TO STRECH IT OUT. NO PAIN SHOOTING INTO LEG. IS S/P RIGHT SIJ INJECTION ON 11/19/16 AND WAS VERY PLEASED WITH LEVEL OF RELIEF. CURRENT MEDICATIONS TAKING IBUPROFEN 800 MG TABLET 1 TABLET ORALLY THREE TIMES A DAY NEEDED TAKING PROPRANOLOL HCL 10 MG TABLET 1 TABLET ORALLY NEEDED FOR TREMORS TAKING SINEMET 25-100 MG ? DOSE TABLET 2 TABS ORALLY 2 AT BREAKFAST, 2 AT LUNCH 1 AT DINNER AND 1AT BEDTIME TAKING MIRAPEX 1 MG TABLET 1 TABLETS ([employer]) ORALLY THREE TIMES A DAY TAKING AMANTADINE HCL 100 MG CAPSULE 1 CAPSULE([employer]) ORALLY THREE TIMES A DAY TAKING SULFASALAZINE 500 MG TABLET 3 TABLETS ORALLY TID TAKING FOLIC ACID 1 MG TABLET 2 ORALLY ONCE A DAY TAKING ACTEMRA 80 MG/4ML SOLUTION INTRAVENOUS MONTHLY TAKING VIAGRA 100 MG TABLET 1/2 -1 TABLET NEEDED ORALLY ONCE DAILY NEEDED TAKING ELDEPRYL 5 MG CAPSULE 1 CAPSULE ([employer]) ORALLY ONCE A DAY MEDICATION LIST REVIEWED AND RECONCILED WITH THE PATIENT PAST MEDICAL HISTORY PARKINSONS DISEASE RHEUMATOID ARTHRITIS, SERONEGATIVE-ADA ALLEN SY/RHEUM BPH HYPERLIPIDEMIA (HDL> 100) 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; TREATED BY RHEUM PROPHYLACTICALLY 08/[address]ITE IN [address] SYKES'S PALSY, L ERECTILE DYSFUNCTION SEVERE/DISABLING ARTHRITIS L & R WRIST FRACTURE L WRIST X 2 VITAMIN D DEFICIENCY NEG STRESS TEST VASOSPASM/ RAYNAUD'S IMMUNOSUPRESSANT TX--DR Monica ALLEN SYR SUBCLINICAL HYPOTHYROIDISM, TSH SL ELEV, FREE T4 NL, NEG THYROID AB 03/28 ACUTE URINARY RETENTION WITH ARF/ENCEPHALOPATHY 03/24 DDD/DJD L/S SPINE WITH MODERATELY SEVERE SPINAL STENOSIS AND NREVE ROOT ENCROACHMENT MRI 07/25 ALLERGIES IS ON ELDEPRYL/SELEGILINE--MAOI-B INHIBITOR: MULTIPLE DRUG INTERACTIONS: CONTRAINDICATION REVIEW OF SYSTEMS FOLLOW-UP ROS: CARDIOLOGY: NEGATIVE FOR, CHEST PAIN . ALLERGY/IMMUNOLOGY ACTERA HELPFUL FOR RA SYMPTOMS . GI/ NEGATIVE FOR, CONSTIPATION, NAUSEA, VOMITING . MUSCULOSKELETAL LEFT KNEE REPLACEMT HAS BEEN REPLACED 07/28 AND FEELS THIS WAS VERY SUCCESSFUL. . PULMONOLOGY: NEGATIVE FOR, SHORTNESS OF BREATH, COUGH . VITAL SIGNS WT 189 LBS, HT 69 IN, BMI 27.91 INDEX, BP 118/75 MM HG, HR 58 /MIN, RR 18 /MIN, TEMP 96.7 F, OXYGEN SAT % 98, REVIEWED BY: NL. EXAMINATION GENERAL EXAMINATION: PSYCH ALERT , ORIENTED X 3 , APPROPRIATE MOOD AND AFFECT . LUNGS:CLEAR TO AUSCULTATION BILATERALLY. HEART:HEART RATE REGULAR. MUSCULOSKELETAL:MUSCLE STRENGTH TESTING 5/5 BILATERAL LOWER EXTREMITIES. TENDER TO PALPATION OVER RIGHT LUMBOSACRAL AXIS AND SACRAL ILIAC JOINT. , TRIGGER POINTS AND TIGHT FIBERUS BANDS OVER LUMBAR PARAVERTEBRAL MUSCULATURE. RESTRICTION OF ROM NOTED WITH BACK EXTENSION AND ROTATION. EXTREMITIES:NO EDEMA. SKIN:MULTIPLE ECCYMOTIC AREAS BOTH ARMS . ASSESSMENTS LUMBAR SPINAL STENOSIS - M48.06 (PRIMARY) SACROILIITIS - M46.1 MYALGIA - M79.1 TREATMENT LUMBAR SPINAL STENOSIS TRIGGER POINT 3 + PUSHPA BOSS 12/16/2016 2:54:56 PM > LOW BACK, RIGHT SIDE NOTES: DO INJECTION 3 DAYS PRIOR TO ACTEMA INFUSION,TRIGGER POINT INJECTION: YOUR EXPERIENCE MATERIAL WAS PRINTED,TRIGGER POINT INJECTION MATERIAL WAS PRINTED. PREVENTIVE MEDICINE REVIEWED PRE PROCEDURE CARE AND TPI INFORMATION WITH PT EXPRESSING UNDERSTANDING. PROCEDURE CODES FA211 ESTABILISHED PATIENT [facility] FACILITY CHARGE G8730 PAIN ASSESS POS TOOL F/U PLAN DOC G8427 DOC MEDS VERIFIED W/PT OR RE DISPOSITION & COMMUNICATION FOLLOW UP AFTER INJECTION WITH Ebenezer LEUNG (REASON: CHECK AUTH FOR TPILOW BACK, DO 3 DAYS PRIOR TO ACTEMA INJECTION) ELECTRONICALLY SIGNED BY FRANTZ ARAUJO ON 01/04/2017 AT 08:14 AM EDT DISCLAIMER : THIS IS A VISIT SUMMARY EXTRACTED FROM THE [employer] CHART. IT IS NOT A COPY OF THE [employer] PROGRESS NOTE. MARVIN
== END ==
LOC: M PAIN 14:15
PROVIDERS: ATTEND Nurse Practitioner Family
DX: G89.29 Other chronic pain (principal); M48.06 Spinal stenosis, lumbar region; M46.1 Sacroiliitis, not elsewhere classified; M79.1 Myalgia; E78.4 Other hyperlipidemia; G20 Parkinson's disease; E55.9 Vitamin D deficiency, unspecified; E03.9 Hypothyroidism, unspecified; M06.89 Other specified rheumatoid arthritis, multiple sites; G25.0 Essential tremor; Z88.8 Allergy status to other drugs, medicaments and biological substances; Z79.899 Other long term (current) drug therapy

== ENCOUNTER → 2017-01-08 | Outpatient (CLI) | payer BC, OTHER ==
[~2017-01-08] MED LIST changes: +BUPIVACAINE HCL 0.25% 10 ML VIAL As Ordered ONE; +BUPIVACAINE HCL 0.25% 30 ML VIAL As Ordered ONE; +TRIAMCINOLONE ACETONIDE SUSP 40 MG/ML VIAL (J3301) As Ordered ONE
--- NOTE | 2017-01-20 01:52 | ECWPNPC ---
PATIENT NAME: GENARO MARTINEZ : 1945 GENDER: MALE VISIT DATE: 01/08/2017 DISCHARGE DATE: 01/08/17 1549 VISIT LOCKED DATE TIME: PHYSICIAN: JOSÉ MIGUEL BAER PHYSICIAN PAGER NO: [phone] RESOURCE: JOSÉ MIGUEL BAER REASON FOR APPOINTMENT 1. TPI, LOW BACK HISTORY OF PRESENT ILLNESS HISTORY OF PRESENT ILLNESS: PAIN THE PATIENT DESCRIBES THE PAIN... FALL RISK SCREENING: SCREENING :NO FALLS IN THE PAST YEAR CURRENT MEDICATIONS TAKING IBUPROFEN 800 MG TABLET 1 TABLET ORALLY THREE TIMES A DAY NEEDED, NOTES: 01-07-172099 TAKING PROPRANOLOL HCL 10 MG TABLET 1 TABLET ORALLY NEEDED FOR TREMORS, NOTES: 01-07-172099 TAKING SINEMET 25-100 MG ? DOSE TABLET 2 TABS ORALLY 2 AT BREAKFAST, 2 AT LUNCH 1 AT DINNER AND 1AT BEDTIME, NOTES: 01-08-17 0800 TAKING MIRAPEX 1 MG TABLET 1 TABLETS ([place]) ORALLY THREE TIMES A DAY, NOTES: 01-07-172099 TAKING AMANTADINE HCL 100 MG CAPSULE 1 CAPSULE([place]) ORALLY THREE TIMES A DAY, NOTES: 01-08-17899 TAKING SULFASALAZINE 500 MG TABLET 3 TABLETS ORALLY TID, NOTES: 01-08-17899 TAKING FOLIC ACID 1 MG TABLET 2 ORALLY ONCE A DAY, NOTES: 01-08-17899 TAKING ACTEMRA 80 MG/4ML SOLUTION INTRAVENOUS MONTHLY, NOTES: 01-01-17899 TAKING VIAGRA 100 MG TABLET 1/2 -1 TABLET NEEDED ORALLY ONCE DAILY NEEDED, NOTES: NOT LATELY TAKING ELDEPRYL 5 MG CAPSULE 1 CAPSULE ([place]) ORALLY ONCE A DAY, NOTES: 12-28-162099 MEDICATION LIST REVIEWED AND RECONCILED WITH THE PATIENT PAST MEDICAL HISTORY PARKINSONS DISEASE RHEUMATOID ARTHRITIS, SERONEGATIVE-ADA ALLEN SY/RHEUM BPH HYPERLIPIDEMIA (HDL> 100) 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; TREATED BY RHEUM PROPHYLACTICALLY 08/[address]ITE IN [address] SYKES'S PALSY, L ERECTILE DYSFUNCTION SEVERE/DISABLING ARTHRITIS L & R WRIST FRACTURE L WRIST X 2 VITAMIN D DEFICIENCY NEG STRESS TEST VASOSPASM/ RAYNAUD'S IMMUNOSUPRESSANT TX--DR Monica ALLEN SYR SUBCLINICAL HYPOTHYROIDISM, TSH SL ELEV, FREE T4 NL, NEG THYROID AB 03/28 ACUTE URINARY RETENTION WITH ARF/ENCEPHALOPATHY 03/24 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 CONSTITUTIONAL: ANY CHANGE IN YOUR MEDICAL CONDITION? NO . CHILLS NO . FEVER NO . INFECTION: DO YOU HAVE NEW INFECTIONS? NO . DO YOU HAVE HISTORY OF MRSA? NO . MUSCULOSKELETAL: ANY NEW PATTERNS OF PAIN OR NUMBNESS? NO . GASTROENTEROLOGY: ANY NEW CHANGE IN BOWEL CONTROL? NO . GENITOURINARY: ANY NEW CHANGE IN BLADDER CONTROL? NO . IS THERE A CHANCE YOU COULD BE ? NO . HEMATOLOGY/LYMPH: DO YOU TAKE ANY BLOOD THINNERS? (FOR EXAMPLE- COUMADIN, PLAVIX, AGGRENOX, PLATEL, PRADAXA, OR XARELTO) NO . WHEN WAS YOUR LAST DOSE? DATE: TIME: . NEUROLOGY: HAVE YOU FALLEN IN THE PAST 6 MONTHS? NO . ANY NEW EXTREMITY NUMBNESS OR WEAKNESS? NO . CARDIOLOGY: DO YOU HAVE A PACEMAKER OR DEFIBRILLATOR? NO . RESPIRATORY: HAVE YOU BEEN SICK IN THE PAST WEEK? NO . FEVER NO . FLU LIKE SYMPTOMS? NO . COUGH NO . INTEGUMENTARY: DO YOU HAVE ANY RASHES OR OPEN SORES? NO . ALLERGIC/IMMUNO: ARE YOU ALLERGIC TO SHELLFISH OR IV DYE? NO . ANY NEW ALLERGIES? NO . PSYCHIATRIC: DO YOU HAVE THOUGHTS OF HURTING YOURSELF OR SOMEONE ELSE? NO . ARE YOU ABUSED, NEGLECTED, OR IN AN UNSAFE ENVIRONMENT? NO . ENDOCRINOLOGY: ARE YOU DIABETIC? NO . OTHER: DO YOU NEED ANY PRESCRIPTIONS? NO . IF YES, PLEASE LIST: ____ . ANY NEW PROBLEMS WITH YOUR MEDICATIONS? NO . WHEN DID YOU LAST EAT? ____0800 THIS MORNING . WHEN DID YOU LAST DRINK? ____1 PM TODAY . WHAT DID YOU LAST DRINK? ____APPLE JUICE . NAME OF PERSON DRIVING YOU HOME? CASEY MARTINEZ____ . DO YOU HAVE ANY OTHER QUESTIONS OR CONCERNS NO . VITAL SIGNS WT 183 LBS, HT 69 IN, BMI 27.02 INDEX, BP 122/76 MM HG, HR 56 /MIN, RR 16 /MIN, TEMP 98.1 F, OXYGEN SAT % 97%, NA INITIALS CM 1455. PROCEDURES PN TRIGGER POINT INJECTION WITH STEROIDS PRE PROCEDURE DIAGNOSIS 1. MYALGIA 2. PAIN AT RIGHT LOWER BACK AREA POST PROCEDURE DIAGNOSIS 1. MYALGIA 2. PAIN AT RIGHT LOWER BACK AREA PROCEDURE TRIGGER POINT INJECTION AT RIGHT LOWER BACK AREA SURGEON DR. JOSÉ MIGUEL BAER GROUND CREW SUPERVISOR NONE ANESTHESIA LOCAL PRE PROCEDURE NOTE THE PATIENT HAS A HISTORY OF CHRONIC PAIN AT THE RIGHT LOWER BACK AREA. I EVALUATE THE PATIENT AND REVIEWED THE CHART. THERE IS EVIDENCE OF BANDS OF TISSUE WITH RESTRICTION OF MOVEMENT AND PRESENCE OF TRIGGER POINT AT THE AFFECTED AREA. I WENT OVER THE RISKS, ALTERNATIVES, AND BENEFITS ASSOCIATED WITH THIS PROCEDURE. THE PATIENT WOULD LIKE TO PROCEED AND GIVE CONSENT TO PERFORMED THE PROCEDURE. THE PATIENT DENIES UNEXPLAINABLE WEIGHT LOSS, FEVER, CHILLS, OR NEW CHANGES IN URINARY OR BOWEL CONTROL DESCRIPTION OF PROCEDURE THE PATIENT WAS BROUGHT TO THE PROCEDURE ROOM AND PLACED IN THE SITTING POSITION. THE AREA WAS CLEANED WITH ALCOHOL. THE PROCEDURE WAS DONE USING ASEPTIC STERILE TECHNIQUE. I CHECKED LATERALITY AND THE LEVEL WHERE THE PROCEDURE WAS GOING TO BE PERFORMED WITH THE PATIENT AND THE SUPPORTING STAFF AT THE MOMENT OF THE TIME OUT IN THE PROCEDURE ROOM. USING A 25-GAUGE NEEDLE, TRIGGER POINTS WERE INJECTED AT THE RIGHT LOWER BACK AREA WITH A TOTAL OF 40 ML OF BUPIVACAINE 0.25% AND KENALOG 40 MG. THERE WAS NO EVIDENCE OF BLOOD, PARESTHESIA OR CEREBROSPINAL FLUID DURING THE PROCEDURE. THE PATIENT WAS SENT TO THE RECOVERY ROOM. THE PATIENT WAS MOVING THE EXTREMITIES AND DOING WELL. THERE WAS NO COMPLICATION DURING THE PROCEDURE POST PROCEDURE NOTE THE PATIENT WILL BE SEEN IN A FOLLOW UP IN THE NEXT FEW WEEKS. INSTRUCTIONS WERE GIVEN, QUESTIONS WERE ANSWERED, AND THE PATIENT EXPRESSED UNDERSTANDING AND AGREES WITH THE PLAN. I, ROBB NOVOA, DOCUMENTED THE ABOVE INFORMATION ACTING A SCRIBE FOR DR. BAER. I, DR. BAER, HAVE REVIEWED THE ABOVE DOCUMENT, SCRIBED BY ROBB NOVOA, AND I VERIFY THAT IT IS ACCURATE PROCEDURE CODES 01241 INJ TRIGGER POINT 04/14 [facility] [place] DISPOSITION & COMMUNICATION FOLLOW UP 3 WEEKS ELECTRONICALLY SIGNED BY JOSÉ MIGUEL BAER MD ON 01/19/2017 AT 05:17 PM EDT DISCLAIMER : THIS IS A VISIT SUMMARY EXTRACTED FROM THE [employer] CHART. IT IS NOT A COPY OF THE [employer] PROGRESS NOTE. MARVIN
== END | disposition home or self-care (01) ==
LOC: M PAIN 14:45
PROVIDERS: ATTEND Anesthesiology
DX: G89.29 Other chronic pain (principal); M79.1 Myalgia; M46.1 Sacroiliitis, not elsewhere classified; G20 Parkinson's disease; M06.9 Rheumatoid arthritis, unspecified; N40.0 Benign prostatic hyperplasia without lower urinary tract symptoms; E78.5 Hyperlipidemia, unspecified; A69.20 Lyme disease, unspecified; G51.0 Bell's palsy; N52.9 Male erectile dysfunction, unspecified; M19.031 Primary osteoarthritis, right wrist; M19.032 Primary osteoarthritis, left wrist; E55.9 Vitamin D deficiency, unspecified; I73.00 Raynaud's syndrome without gangrene; Z79.899 Other long term (current) drug therapy; Z88.8 Allergy status to other drugs, medicaments and biological substances
CPT/HCPCS: 20552; J3301

== ENCOUNTER → 2017-01-22 | Outpatient (CLI) | payer OTHER ==
[~2017-01-22] MED LIST changes: -BUPIVACAINE HCL 0.25% 10 ML VIAL As Ordered ONE; -BUPIVACAINE HCL 0.25% 30 ML VIAL As Ordered ONE; -TRIAMCINOLONE ACETONIDE SUSP 40 MG/ML VIAL (J3301) As Ordered ONE
== END ==
LOC: M PAIN 13:15
PROVIDERS: ATTEND Nurse Practitioner Family
DX: M48.061 Spinal stenosis, lumbar region without neurogenic claudication (principal); M46.1 Sacroiliitis, not elsewhere classified; M79.1 Myalgia; G20 Parkinson's disease; M06.9 Rheumatoid arthritis, unspecified; Z79.899 Other long term (current) drug therapy; Z88.8 Allergy status to other drugs, medicaments and biological substances

== ENCOUNTER → 2017-05-21 | Outpatient (CLI) | payer OTHER | LOC: M PAIN 09:00 | DX: M48.061 Spinal stenosis, lumbar region without neurogenic claudication (principal); M46.1 Sacroiliitis, not elsewhere classified; M79.1 Myalgia; G20 Parkinson's disease; M06.09 Rheumatoid arthritis without rheumatoid factor, multiple sites; E78.5 Hyperlipidemia, unspecified; M19.031 Primary osteoarthritis, right wrist; M19.032 Primary osteoarthritis, left wrist; I73.00 Raynaud's syndrome without gangrene; D89.9 Disorder involving the immune mechanism, unspecified; E03.9 Hypothyroidism, unspecified; Z79.899 Other long term (current) drug therapy; Z86.19 Personal history of other infectious and parasitic diseases; Z86.79 Personal history of other diseases of the circulatory system; Z87.891 Personal history of nicotine dependence; Z96.652 Presence of left artificial knee joint | CPT/HCPCS: G0463 ==

== ENCOUNTER → 2017-10-28 | Outpatient (REF) | payer OTHER ==
[2017-10-28 12:34] LABS: HEMATOCRIT 43.7 % (42.0-52.0); HEMOGLOBIN 14.5 g/dl (13.5-17.5); MEAN CORPUSCULAR HEMOGLOBIN 33.8 pg (27.0-33.0); MEAN CORPUSCULAR HGB CONC 33.2 g/dl (32.0-36.5); MEAN CORPUSCULAR VOLUME 101.9 fl (80.0-96.0); PLATELET COUNT, AUTOMATED 179 10^3/uL (150-450); RED BLOOD COUNT 4.29 10^6/uL (4.30-6.10); RED CELL DISTRIBUTION WIDTH 13.2 % (11.5-14.5); WHITE BLOOD COUNT 5.2 10^3/uL (4.0-10.0)
[2017-10-28 13:17] LABS: ALBUMIN 3.7 GM/DL (3.2-5.2); ALBUMIN/GLOBULIN RATIO 1.48 (1.00-1.93); ALKALINE PHOSPHATASE 82 U/L (45-117); ALT/SGPT 16 U/L (12-78); ANION GAP 8 MEQ/L (8-16); AST/SGOT 12 U/L (7-37); BILIRUBIN,TOTAL 0.8 MG/DL (0.2-1.0); BLOOD UREA NITROGEN 23 MG/DL (7-18); CALCIUM LEVEL 8.6 MG/DL (8.8-10.2); CARBON DIOXIDE LEVEL 29 MEQ/L (21-32); CHLORIDE LEVEL 106 MEQ/L (98-107); CHOLESTEROL LEVEL 220 MG/DL (<200); CHOLESTEROL RISK RATIO 2.444 (<5); CREATININE FOR GFR 1.01 MG/DL (0.70-1.30); FREE T4 0.84 NG/DL (0.76-1.46); GLOMERULAR FILTRATION RATE > 60.0 (>42); GLUCOSE, FASTING 77 MG/DL (70-100); HDL CHOLESTEROL 90 MG/DL (>40); LDL CHOLESTEROL 117.6 MG/DL (<100); NON-HDL-C 130 MG/DL; POTASSIUM SERUM 4.1 MEQ/L (3.5-5.1); PSA SCREENING 0.96 NG/ML (< 4.0); SODIUM LEVEL 143 MEQ/L (136-145); TOTAL PROTEIN 6.2 GM/DL (6.4-8.2); TRIGLYCERIDES LEVEL 62 MG/DL (<150)
[2017-10-28 13:24] LABS: TOTAL 25(OH) VITAMIN D 34.5 NG/ML (30.0-100.0)
== END ==
LOC: M SFHCADAM 08:39
DX: G20 Parkinson's disease (principal); M06.9 Rheumatoid arthritis, unspecified; K64.4 Residual hemorrhoidal skin tags; E03.9 Hypothyroidism, unspecified; E78.4 Other hyperlipidemia; Z12.5 Encounter for screening for malignant neoplasm of prostate; E55.9 Vitamin D deficiency, unspecified

== ENCOUNTER → 2018-05-24 | Outpatient (CLI) | payer BC, OTHER ==
[~2018-05-24] MED LIST changes: +CARB25TA9 PO; +FOLI1TAB11 PO; -FOLI1TAB4 PO
--- NOTE | 2018-06-10 01:10 | ECWPNPC ---
PATIENT NAME: GENARO MARTINEZ : 1945 GENDER: MALE VISIT DATE: 05/24/2018 DISCHARGE DATE: 05/24/18 1120 VISIT LOCKED DATE TIME: PHYSICIAN: WANDA LEUNG PHYSICIAN PAGER NO: [phone] RESOURCE: WANDA LEUNG REASON FOR APPOINTMENT 1. BACK PAIN HISTORY OF PRESENT ILLNESS HISTORY OF PRESENT ILLNESS: HERE FOR F/U OF CHRONIC LOW BACK PAIN.OVERALL DOING WELL.RATING PAIN VAS 1/10.DESCCRIBES PAIN INTERMITTENT SORENESS WITH SPECIFIC ACTIVITIES. PAIN THE PATIENT DESCRIBES THE PAIN... FALL RISK SCREENING: SCREENING :NO FALLS IN THE PAST YEAR CURRENT MEDICATIONS TAKING MIRAPEX 1 MG TABLET 1 TABLETS ([place]) ORALLY BID TAKING AMANTADINE HCL 100 MG CAPSULE 1 CAPSULE([place]) ORALLY THREE TIMES DAILY TAKING SULFASALAZINE 500 MG TABLET 3 TABLETS ORALLY TID TAKING FOLIC ACID 1 MG TABLET 2 ORALLY ONCE A DAY TAKING ACTEMRA 80 MG/4ML SOLUTION INTRAVENOUS MONTHLY TAKING ELDEPRYL 5 MG CAPSULE TAKE ONE CAPSULE BY MOUTH ONCE DAILY TAKING PROPRANOLOL HCL 10 MG TABLET 1 TABLET ORALLY NEEDED FOR TREMORS TAKING IBUPROFEN 800 MG TABLET 1 TABLET ORALLY THREE TIMES A DAY NEEDED TAKING VIAGRA 100 MG TABLET 1/2 -1 TABLET NEEDED ORALLY ONCE DAILY NEEDED TAKING SINEMET 25-100 MG TABLET 2 TABS ORALLY THREE TIMES DAILY NOT-TAKING MIRALAX - PACKET 1 PACKET MIXED WITH 8 OUNCES OF FLUID ORALLY ONCE A DAY NOT-TAKING PREPARATION H 0.25-88.44 % SUPPOSITORY ONE APPLICATION RECTAL DAILY NOT-TAKING AMOXICILLIN 500 MG CAPSULE 4 ORALLY DIRECTED 1 HR BEFORE DENTAL PROCEDURE MEDICATION LIST REVIEWED AND RECONCILED WITH THE PATIENT PAST MEDICAL HISTORY PARKINSONS DISEASE RHEUMATOID ARTHRITIS, SERONEGATIVE-ADA ALLEN SY/RHEUM BPH HYPERLIPIDEMIA (HDL> 100) 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; TREATED BY RHEUM PROPHYLACTICALLY 08/[address] IN [address] SYKES'S PALSY, L ERECTILE DYSFUNCTION SEVERE/DISABLING ARTHRITIS L & R WRIST FRACTURE L WRIST X 2 VITAMIN D DEFICIENCY NEG STRESS TEST VASOSPASM/ RAYNAUD'S IMMUNOSUPRESSANT TX--DR Monica ALLEN SYR SUBCLINICAL HYPOTHYROIDISM, TSH SL ELEV, FREE T4 NL, NEG THYROID AB 03/28 ACUTE URINARY RETENTION WITH ARF/ENCEPHALOPATHY 03/24 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 NEGATIVE FOR PROSTATE CANCER OR ANY OTHER UROLOGIC DISEASE. SOCIAL HISTORY GENERAL: TOBACCO USE ARE YOU A:FORMER SMOKER HOW LONG HAS IT BEEN SINCE YOU LAST SMOKED?> 10 YEARS ALCOHOL SCREENING DID YOU HAVE A DRINK CONTAINING ALCOHOL IN THE PAST YEAR?YES HOW OFTEN DID YOU HAVE SIX OR MORE DRINKS ON ONE OCCASION IN THE PAST YEAR?NEVER (0 POINTS) HOW MANY DRINKS DID YOU HAVE ON A TYPICAL DAY WHEN YOU WERE DRINKING IN THE PAST YEAR?1 OR 2 (0 POINTS) HOW OFTEN DID YOU HAVE A DRINK CONTAINING ALCOHOL IN THE PAST YEAR?TWO TO FOUR TIMES A MONTH (2 POINTS) POINTS2 INTERPRETATIONNEGATIVE RECREATIONAL DRUG USE DRUG USE?NO CAFFEINE CAFFEINE USE?NO SEXUAL HX HAD SEX IN THE LAST 12 MONTHS (VAGINAL, ORAL, OR ANAL)?YES WITHWOMEN ONLY PREVENTION STRATEGIES DISCUSSED:CONDOMS USE PROTECTION?NO HAVE YOU EVER HAD AN STD?NO HIV / HEP-C SCREENING HIV TEST OFFERED TO PATIENT:NO HEP-C TEST OFFERED TO PATIENT:NO EPISCOPALIAN [id number] [employer] LANGUAGES SPOKEN:ECUADOREAN EDUCATION LEVEL OF EDUCATION:PROFESSIONAL SCHOOLS/MASTERS/PHD LEARNING BARRIERS / SPECIAL NEEDS CHANGE FROM LAST VISIT?NO BARRIERS TO LEARNING?NO HEARING IMPAIRED?NO VISION IMPAIRED?NO COGNITIVELY IMPAIRED?NO READINESS TO LEARN?YES LEARNING PREFERENCES?NO LEARNING CAPABILITIES PRESENT?YES EMOTIONAL BARRIERS?NO SPECIAL DEVICES?NO LEGAL BILLER NEEDED?NO DIET: NO ADDED SALT. EXERCISE: RESISTANCE TRAINING, WALKS. MARITAL STATUS: --PATRICIO. PAIN CLINIC PFS, CLERGY, PUBLIC HEALTH REFERRALS HAS THE PATIENT BEEN EDUCATED REGARDING HIS/HER PLAN OF CARE?YES HAS THE PATIENT BEEN EDUCATED REGARDING PAIN, THE RISK FOR PAIN, THE IMPORTANCE OF EFFECTIVE PAIN MANAGEMENT, AND THE PAIN ASSESSMENT PROCESS?YES ADVANCE DIRECTIVE HEALTH CARE PROXY? YES, NAME OF HCP C PATRICIO MICHELLE-, DO YOU HAVE A DNR? YES, LIVING WILL? YES, POWER OF ART SPECIALIST? YES, NAME OF POA? C PATRICIO MARTINEZ-. REVIEWED, NO CHANGESREVIEWED WITH PT 05/24/18 1052 BV. HOSPITALIZATION/MAJOR DIAGNOSTIC PROCEDURE SURGERIES REVIEW OF SYSTEMS REVIEWED BY: PROVIDER: WANDA HARRIS . CONSTITUTIONAL: ANY CHANGE IN YOUR MEDICAL CONDITION? NO . CHILLS NO . FEVER NO . INFECTION: DO YOU HAVE NEW INFECTIONS? NO . DO YOU HAVE HISTORY OF MRSA? NO . MUSCULOSKELETAL: ANY NEW PATTERNS OF PAIN OR NUMBNESS? NO . GASTROENTEROLOGY: ANY NEW CHANGE IN BOWEL CONTROL? NO . GENITOURINARY: ANY NEW CHANGE IN BLADDER CONTROL? NO . IS THERE A CHANCE YOU COULD BE ? NO . HEMATOLOGY/LYMPH: DO YOU TAKE ANY BLOOD THINNERS? (FOR EXAMPLE- COUMADIN, PLAVIX, AGGRENOX, PLATEL, PRADAXA, OR XARELTO) NO . WHEN WAS YOUR LAST DOSE? DATE: TIME: . NEUROLOGY: HAVE YOU FALLEN IN THE PAST 12 MONTHS? YES, HAS HAS A FEW FALLS IN THE PAST COUPLE MONTHS, BUT DENIES ANY INJURIES OR ED VISIT ASSOCIATED WITH ANY FALL. . ANY NEW EXTREMITY NUMBNESS OR WEAKNESS? NO . CARDIOLOGY: DO YOU HAVE A PACEMAKER OR DEFIBRILLATOR? NO . RESPIRATORY: HAVE YOU BEEN SICK IN THE PAST WEEK? NO . FEVER NO . FLU LIKE SYMPTOMS? NO . COUGH NO . INTEGUMENTARY: DO YOU HAVE ANY RASHES OR OPEN SORES? NO . ALLERGIC/IMMUNO: ARE YOU ALLERGIC TO IV DYE? NO . ANY NEW ALLERGIES? NO . PSYCHIATRIC: DO YOU HAVE THOUGHTS OF HURTING YOURSELF OR SOMEONE ELSE? NO . ARE YOU ABUSED, NEGLECTED, OR IN AN UNSAFE ENVIRONMENT? NO . ENDOCRINOLOGY: ARE YOU DIABETIC? NO . OTHER: DO YOU NEED ANY PRESCRIPTIONS? NO . IF YES, PLEASE LIST: ____ . ANY NEW PROBLEMS WITH YOUR MEDICATIONS? NO . WHEN DID YOU LAST EAT? ____ . WHEN DID YOU LAST DRINK? ____ . WHAT DID YOU LAST DRINK? ____ . NAME OF PERSON DRIVING YOU HOME? ____ . DO YOU HAVE ANY OTHER QUESTIONS OR CONCERNS NO . VITAL SIGNS WT 192 LBS, HT 69 IN, BMI 28.35 INDEX, BP 130/76 MM HG, HR 65 /MIN, RR 18 /MIN, TEMP 97.2 F, OXYGEN SAT % 98%, NA INITIALS SC 10:24, REVIEWED BY: BV. EXAMINATION GENERAL EXAMINATION: GENERAL APPEARANCE:AWAKE,ALERT ,PLEAASANT . PSYCHAFFECT NORMAL . LUNGS:LUNG GARIBAY ARE CLEAR TO AUSCULTATION BILATERALLY. GOOD MOVEMENT OF AIR . HEART:S1, S2 IN A REGULAR RATE AND RHYTHM. NO SIGNIFICANT MURMURS, RUBS OR GALLOPS NOTED . LUMBAR SACRAL SPINEMILD TENDERNESS OVER RIGHT SIJ. 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 PROCEDURE CODES FA211 ESTABILISHED PATIENT [facility] CHARGE DISPOSITION & COMMUNICATION FOLLOW UP PT WILL CALL ELECTRONICALLY SIGNED BY STEVEN TAPIA ON 06/08/2018 AT 08:38 AM EST DISCLAIMER : THIS IS A VISIT SUMMARY EXTRACTED FROM THE [employer] CHART. IT IS NOT A COPY OF THE [employer] PROGRESS NOTE. MARVIN
== END ==
LOC: M PAIN 10:30
PROVIDERS: ATTEND Nurse Practitioner Family
DX: M53.3 Sacrococcygeal disorders, not elsewhere classified (principal); G89.29 Other chronic pain; G20 Parkinson's disease; M06.9 Rheumatoid arthritis, unspecified; E78.49 Other hyperlipidemia; M19.031 Primary osteoarthritis, right wrist; M19.032 Primary osteoarthritis, left wrist; E55.9 Vitamin D deficiency, unspecified; I73.00 Raynaud's syndrome without gangrene; E03.9 Hypothyroidism, unspecified; Z79.899 Other long term (current) drug therapy; Z88.8 Allergy status to other drugs, medicaments and biological substances; Z87.891 Personal history of nicotine dependence; Z91.81 History of falling; Z96.652 Presence of left artificial knee joint

== ENCOUNTER → 2018-08-05 | Outpatient (REF) | payer OTHER ==
[~2018-08-05] MED LIST changes: -/TAMS4CA PO; +AMAN100C20 PO; -AMAN10CA PO; +FLOM0.4C39 PO; +[UNRECOGNIZED DRUG - CODE] PO; -[UNRECOGNIZED DRUG - OTHER] PO
[2018-08-05 13:46] LABS: BASO % 0.6 % (0.0-1.0); EOS # 0.3 10^3/uL (0.0-0.50); EOS % 5.1 % (0.0-3.0); HEMATOCRIT 46.2 % (42.0-52.0); LYMPH # 1.1 10^3/uL (1.5-4.5); LYMPH % 19.5 % (24.0-44.0); MEAN CORPUSCULAR HEMOGLOBIN 32.9 pg (27.0-33.0); MEAN CORPUSCULAR HGB CONC 32.5 g/dl (32.0-36.5); MEAN CORPUSCULAR VOLUME 101.3 fl (80.0-96.0); MONO # 0.5 10^3/uL (0.0-0.8); NEUTROPHILS # 3.6 10^3/uL (1.8-7.7); NEUTROPHILS % 65.2 % (36.0-66.0); PLATELET COUNT, AUTOMATED 206 10^3/uL (150-450); RED BLOOD COUNT 4.56 10^6/uL (4.30-6.10); WHITE BLOOD COUNT 5.4 10^3/uL (4.0-10.0)
[2018-08-05 14:09] LABS: ALT/SGPT 8 U/L (12-78); BILIRUBIN,TOTAL 0.8 MG/DL (0.2-1.0); BLOOD UREA NITROGEN 23 MG/DL (7-18); C REACTIVE PROTEIN QUANTITATIV < 0.30 MG/DL (0.00-0.30); CALCIUM LEVEL 8.8 MG/DL (8.8-10.2); CARBON DIOXIDE LEVEL 30 MEQ/L (21-32); CHLORIDE LEVEL 105 MEQ/L (98-107); CREATININE FOR GFR 0.97 MG/DL (0.70-1.30); GLOMERULAR FILTRATION RATE > 60.0 (>42); GLUCOSE, FASTING 81 MG/DL (70-100); POTASSIUM SERUM 4.3 MEQ/L (3.5-5.1); SODIUM LEVEL 139 MEQ/L (136-145); TOTAL PROTEIN 6.1 GM/DL (6.4-8.2)
[2018-08-05 14:28] LABS: ERYTHROCYTE SEDIMENTATION RATE 2 mm/hr (0-20)
[2018-08-06 11:07] LABS: HEPATITIS C VIRUS ABY INDEX < 0.0 INDEX (<0.8)
[2018-08-06 15:25] LABS: HEPATITIS B SURFACE ANTIBODY NEGATIVE (POSITIVE); HEPATITIS B SURFACE ANTIGEN NEGATIVE (NEGATIVE)
[2018-08-07 08:14] LABS: HEPATITIS B CORE ANTIBODY IGG Negative (Negative)
== END ==
LOC: M SFHCPLAZ 11:10
PROVIDERS: ATTEND Internal Medicine Rheumatology
DX: M06.9 Rheumatoid arthritis, unspecified (principal); Z79.899 Other long term (current) drug therapy

== ENCOUNTER 2018-08-20 10:53 | Outpatient (CLI) | payer BC, OTHER, MEDICARE ==
[~2018-08-20] VITALS: Ht 175.3 cm; Wt 86.0 kg
[2018-08-20] MEDS ORDERED: TOCILIZUMAB IV ONE (11:30)
[2018-08-20] MEDS ORDERED: NS 1,000 ML IV SCH (11:30)
[2018-08-20] MEDS ORDERED: methylPREDNISolone INJ 125 MG/2 ML VIAL (J2930) IV PRN (11:30)
[2018-08-20] MEDS ORDERED: NS IV ONE (11:30)
[2018-08-20] MEDS ORDERED: EPINEPHrine INJ 1 MG/ML 1ML AMP IM PRN (11:30)
[2018-08-20] MEDS ORDERED: ALBUTEROL SULFATE 2.5 MG/0.5 ML INH NEB SOLN INH PRN (11:30)
[2018-08-20] MEDS ORDERED: diphenhydrAMINE INJ 50MG/ML VIAL (J1200) IV PRN (11:30)
[2018-08-20 11:33] VITALS: BP 142/76
[2018-08-20 13:15] VITALS: BP 138/70
== END 2018-08-20 13:10 | disposition home or self-care (01) ==
LOC: M INFU 10:53
PROVIDERS: ATTEND Internal Medicine Rheumatology
DX: M06.89 Other specified rheumatoid arthritis, multiple sites (principal)
CPT/HCPCS: 96365; J3262

== ENCOUNTER 2018-09-13 14:56 | Inpatient (IN) | payer BC, OTHER, MEDICARE ==
[~2018-09-13] VITALS: Ht 175.3 cm; Wt 84.1 kg
[2018-09-13] MEDS ORDERED: PANTOPRAZOLE 40MG INJ (PROTONIX) (C9113) IV ONE (18:15)
[2018-09-13] MEDS ORDERED: NS 1,000 ML IV ONE (18:15)
[2018-09-13 18:36] LABS: BASO % 0.3 % (0.0-1.0); EOS # 0.2 10^3/uL (0.0-0.50); EOS % 3.6 % (0.0-3.0); HEMOGLOBIN 13.5 g/dl (13.5-17.5); LYMPH # 1.2 10^3/uL (1.5-4.5); LYMPH % 20.3 % (24.0-44.0); MEAN CORPUSCULAR HEMOGLOBIN 34.1 pg (27.0-33.0); MEAN CORPUSCULAR HGB CONC 32.9 g/dl (32.0-36.5); MEAN CORPUSCULAR VOLUME 103.5 fl (80.0-96.0); MONO # 0.5 10^3/uL (0.0-0.8); MONO % 8.3 % (0.0-5.0); NEUTROPHILS % 67.2 % (36.0-66.0); PLATELET COUNT, AUTOMATED 154 10^3/uL (150-450); RED BLOOD COUNT 3.96 10^6/uL (4.30-6.10); WHITE BLOOD COUNT 5.9 10^3/uL (4.0-10.0)
[2018-09-13 18:46] LABS: INR 1.07
[2018-09-13 18:47] LABS: PARTIAL THROMBOPLASTIN TIME 34.2 SECONDS (25.4-37.6)
[2018-09-13 18:59] LABS: ALBUMIN 3.3 GM/DL (3.2-5.2); ALT/SGPT 8 U/L (12-78); BILIRUBIN,DIRECT 0.2 MG/DL (0.0-0.2); BILIRUBIN,TOTAL 0.5 MG/DL (0.2-1.0); BLOOD UREA NITROGEN 22 MG/DL (7-18); CALCIUM LEVEL 8.3 MG/DL (8.8-10.2); CARBON DIOXIDE LEVEL 30 MEQ/L (21-32); CHLORIDE LEVEL 108 MEQ/L (98-107); CREATININE FOR GFR 1.01 MG/DL (0.70-1.30); GLOMERULAR FILTRATION RATE > 60.0 (>42); GLUCOSE, FASTING 83 MG/DL (70-100); LIPASE 107 U/L (73-393); POTASSIUM SERUM 4.1 MEQ/L (3.5-5.1); SODIUM LEVEL 144 MEQ/L (136-145); TOTAL PROTEIN 5.7 GM/DL (6.4-8.2)
--- NOTE | 2018-09-13 19:21 | REPVR ---
EXAM: CT Abdomen and Pelvis Without Contrast EXAM DATE/TIME: 09/13/2018 6:17 PM CLINICAL HISTORY: 72 years old, male; Signs and symptoms; Other: Blood in stool; Additional info: Gi bleed TECHNIQUE: Imaging protocol: Axial computed tomography images of the abdomen and pelvis without contrast. Coronal and sagittal reformatted images were created and reviewed. Radiation optimization: All CT scans at this facility use at least one of these dose optimization techniques: automated exposure control; mA and/or kV adjustment per patient size (includes targeted exams where dose is matched to clinical indication); or iterative reconstruction. COMPARISON: CT ABD PELVIS W/O CONTRAST 03/28/2012 2:11 AM FINDINGS: Lungs: Atelectatic changes are identified at the bilateral lung bases. 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 ABDOMEN: Liver: Normal as visualized on these noncontrast images. No mass. Gallbladder and bile ducts: No calcified stones. No ductal dilation. Pancreas: Normal contour. No ductal dilation. Spleen: No splenomegaly. Adrenals: No mass. Kidneys and ureters: Mild nonspecific perinephric stranding bilaterally. No hydronephrosis bilaterally. Stomach and bowel: Mild asymmetric wall thickening of the rectum is visualized. This can be due to proctitis, although additional pathology including rectal mass cannot be excluded. Colonic diverticula are identified, without acute inflammatory stranding of the adjacent mesentery. Moderate fecal material within the colon. Evaluation of GI bleed is limited by the absence of postcontrast CTA imaging. Appendix: No evidence of appendicitis. PELVIS: Bladder: Unremarkable as visualized. Reproductive: Unremarkable as visualized. ABDOMEN and PELVIS: Intraperitoneal space: No free air. Bones/joints: Hypertrophic degenerative changes are noted within the spine. Grade I anterolisthesis of L5 on S1. Soft tissues: Mild herniation of fat into the left inguinal canal. Vasculature: There is atherosclerotic calcification of the abdominal aorta and iliac arteries. Adjacent to the splenic hilum, there is a peripherally calcified suggestive aneurysm measuring 7 mm in diameter. Lymph nodes: No enlarged lymph nodes. IMPRESSION: 1. Mild asymmetric wall thickening of the rectum is visualized. This can be due to proctitis, although additional pathology including rectal mass cannot be excluded. This is new compared to the prior study. Further clinical evaluation is recommended. 2. Diverticulosis. 3. Adjacent to the splenic hilum, there is a peripherally calcified suggestive aneurysm measuring 7 mm in diameter. 4. Additional findings described above. Electronically signed by: Jonathan Haynes On 09/13/2018 19:21:19 PM
[2018-09-13] MEDS ORDERED: PRAM1TAB7 PO (20:57)
[2018-09-13] MEDS ORDERED: AMAN100T PO (20:57)
[2018-09-13] MEDS ORDERED: IBUP1TAB7 PO (20:57)
[2018-09-13] MEDS ORDERED: SILD100T PO (20:58)
[2018-09-13] MEDS: SINEMET 25-100 MG TAB PO SCH (21:00)
[2018-09-13] MEDS ORDERED: PROPRANOLOL 10 MG TAB PO PRN (23:15)
--- NOTE | 2018-09-13 23:56 | HPEPDOC ---
General Date of Admission 09/13/2018 Date of Service: Sep 13, 2018 Primary Care Physician: Jero Hair MD Attending Physician: ANASTACIA REESE MD Chief Complaint The patient is a 72-year-old male admitted with a reason for visit of Rectal Pain. Source: Patient, Old records Exam Limitations: No limitations Timing/Duration: Day(s) History of Present Illness Mr. Virk is a 72-year-old male who presents to [facility] Emergency Department with rectal bleeding. Patient states that he was in [place] on 09/05/2018 for his nephew's wedding when he first noticed bleeding from his anus which was bright red. He does have a history of hemorrhoids and initially thought that they were bleeding. There were no clots and he was not bleeding from anywhere else. He continued to bleed once he returned home and borrowed adult diapers from a family member. The bleeding was intermittent and he states that he thinks he aggravated it when he took a shower today and used the shower wand to clean the area. He is bleeding more consistently from the area since then. He eventually called a friend to have him transported to the Emergency Department for further evaluation. Before making the decision to be transported to the ED he actually thought about going to the gym. He denies weakness, lightheadedness, dizziness. He has no pain with defecation. He is not constipated or having diarrhea. There is no abdominal pain. He denies chest pain or shortness of breath. Emergency Department evaluation reveals stable labs. Type and screen was obtained. Abdominal imaging revealed "Mild asymmetric wall thickening of the rectum is visualized. This can be due to proctitis, although additional pathology including rectal mass cannot be excluded. This is new compared to the prior study. Further clinical evaluation is recommended. Diverticulosis. 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 Home Medications Scheduled Amantadine HCl (Amantadine) 100 Mg Tablet, 100 MG PO TID, (Reported) 0800, 1200, AND 1700 Carbidopa/Levodopa (Carbidopa-Levodopa 25-100 Tab) 1 Tab Tab, 2 TAB PO TID, (Reported) 0800, 1200, AND 1700 Folic Acid (Folic Acid) 1 Mg Tab, 2 MG PO DAILY, (Reported) AT 1200 Pramipexole Di-HCl (Pramipexole Dihydrochloride) 1 Mg Tablet, 1 MG PO TID, (Reported) 0800, 1200, AND 1700 Selegiline HCl (Selegiline HCl) 5 Mg Cap, 5 MG PO DAILY, (Reported) Sulfasalazine (Sulfasalazine Dr) 500 Mg Tabec, 500 MG PO QPM, (Reported) AT 1700 Sulfasalazine (Sulfasalazine Dr) 500 Mg Tabec, 1,000 MG PO QHS, (Reported) AT 2000 Tocilizumab (Actemra) 80 Mg/4 Ml Inj, 80 MG IV QMONTH, (Reported) EVERY 4 WEEKS. PATIENT INDICATES HE DOES NOT KNOW DATE OF LAST INFUSION BUT BELIEVES HE MISSED LAST APPOINTMENT. RECORDS INDICATE 08/20/18 LAST INFUSION DATE. Scheduled PRN Ibuprofen (Ibuprofen) 800 Mg Tablet, 800 MG PO DAILY PRN for PAIN, (Reported) Propranolol HCl (Propranolol HCl) 10 Mg Tab, 10 MG PO DAILY PRN for TREMORS, (Reported) Sildenafil Citrate (Sildenafil Citrate) 100 Mg Tablet, 100 MG PO ASDIRECTED PRN for ERECTILE DYSFUNCTION, (Reported) Allergies Coded Allergies: No Known Drug Allergies (Verified Allergy, Unknown, 08/20/18) GME ATTESTATION My faculty preceptor for this patient encounter was physically present during the encounter and was fully available. All aspects of the patient interview, examination, medical decision making process, and medical care plan development were reviewed and approved by the faculty preceptor. The faculty preceptor is aware and concurs with the plan as stated in the body of this note and will attest to such by his/her cosignature. ATTENDING NOTE I performed a history and physical examination of the patient and discussed management with the resident. I reviewed the residents note and agree with the documented findings and plan of care. Past Medical History Medical History 1. Parkinson's disease 2. Rheumatoid arthritis 3. BPH 4. DLP 5. History of Lyme disease 6. History of Blount's palsy 7. ED 8. Vitamin D deficiency 9. Raynaud's phenomenon 10. Diverticulitis / hemorrhoids 11. Left knee arthritis Surgical History 1. Left knee arthroplasty 2. Left inguinal hernia repair 3. Colonoscopy Family History Father: , 52, paranoid schizophrenia Mother: , 83, leukemia Siblings - Brother: x1, , 52, ALS - Sister: x1, alive, 78, healthy Social History * Smoker: former Smoker (1/2 PPD in his 20s) Alcohol: occationally (beer / wine / mixed drink) Drugs: denies Pets in the home: Cat(s) (x2: Mini, Minipen) Patient lives independently with of 30 years. He is retired from [employer]. He has two adult children - one son and one daughter - who are both alive and healthy. He used to smoke in his early twenties. He drinks occasionally which consists of beer, wine, or a mixed drink. He smokes marijuana. There are two cats in the home, Mini and Minipen. A-FIB/CHADSVASC A-FIB History Current/History of A-Fib/PAF?: No Review of Systems Constitutional: Denies: Chills, Fever, Night Sweats, Weakness Eyes: Denies: Vision change, Conjunctivae inflammation, Eyelid inflammation ENT: Denies: Head Aches, Dysphagia, Sinus Congestion, Post Nasal Drip, Sore Throat, Epistaxis Skin: Denies: Rash, Lesions Pulmonary: Denies: Dyspnea, Cough Cardiovascular: Denies: Chest Pain, Palpitations, Orthopnea, Paroxysmal Noc. 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 moist/pink (appears somewhat dry), Pharyngeal Edema Neck Exam: Positive: Supple, +2 carotid pulse wo bruit; Negative: JVD, thyromegaly, Lymphadenopathy Chest Exam: Positive: Clear to auscultation, Normal air movement; Negative: Rales, Rhonchi, Wheezing, Diminished Heart Exam: Positive: Rate Normal, Regular Rhythm, Normal S1, Normal S2; Negative: Gallops, Murmurs, Rubs Telemetry: Positive: Bradycardia, Other Telemetry: (LAFB, RBBB) Abdomen Exam: Positive: Normal bowel sounds, Soft; Negative: Tenderness, Hepatospenomegaly, Mass, Hernia Extremity Exam: Positive: Normal pulses, Other (tremulousness); Negative: Clubbing, Cyanosis, Edema, Tenderness, Swelling Skin Exam: Negative: Rash, Lesion Neuro Exam: Positive: Cranial Nerves 3-12 NL Psych Exam: Positive: Oriented x 3 Other physical findings 1. CT abdomen and pelvis without contrast - Mild asymmetric wall thickening of the rectum is visualized. This can be due to proctitis, although additional pathology including rectal mass cannot be excluded. This is new compared to the prior study. Further clinical evaluation is recommended. Diverticulosis. 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 Vital Signs Vital Signs Date Time Temp Pulse Resp B/P (MAP) Pulse Ox O2 Delivery O2 Flow Rate FiO2 09/13/18 22:08 97.0 74 18 99 Room Air 09/13/18 20:01 186/86 (119) Height (in): 69 Weight (kg): 85 BMI (kg): 27.7 Laboratory Data Labs 24H Laboratory Tests 2 09/13/18 18:26: Immature Granulocyte % (Auto) 0.3, White Blood Count 5.9, Red Blood Count 3.96L, Hemoglobin 13.5, Hematocrit 41.0L, Mean Corpuscular Volume 103.5H, Mean Corpuscular Hemoglobin 34.1H, Mean Corpuscular Hemoglobin Concent 32.9, Red Cell Distribution Width 12.9, Platelet Count 154, Neutrophils (%) (Auto) 67.2H, Lymphocytes (%) (Auto) 20.3L, Monocytes (%) (Auto) 8.3H, Eosinophils (%) (Auto) 3.6H, Basophils (%) (Auto) 0.3, Neutrophils # (Auto) 4.0, Lymphocytes # (Auto) 1.2L, Monocytes # (Auto) 0.5, Eosinophils # (Auto) 0.2, Basophils # (Auto) 0.0, Nucleated Red Blood Cells % (auto) 0.0, Prothrombin Time 14.0, Prothromb Time International Ratio 1.07, Activated Partial Thromboplast Time 34.2, Anion Gap 6L, Glomerular Filtration Rate > 60.0, Calcium Level 8.3L, Aspartate Amino Transf (AST/SGOT) 12, Alanine Aminotransferase (ALT/SGPT) 8L, Alkaline Phosphatase 79, Total Bilirubin 0.5, Direct Bilirubin 0.2, Total Protein 5.7L, Albumin 3.3, Albumin/Globulin Ratio 1.38, Lipase 107 CBC/BMP Laboratory Tests 09/13/18 18:26 Red Blood Count 3.96 L, Mean Corpuscular Volume 103.5 H, Mean Corpuscular Hemoglobin 34.1 H, Mean Corpuscular Hemoglobin Concent 32.9, Red Cell Distribution Width 12.9, Neutrophils (%) (Auto) 67.2 H, Lymphocytes (%) (Auto) 20.3 L, Monocytes (%) (Auto) 8.3 H, Eosinophils (%) (Auto) 3.6 H, Basophils (%) (Auto) 0.3, Neutrophils # (Auto) 4.0, Lymphocytes # (Auto) 1.2 L, Monocytes # (Auto) 0.5, Eosinophils # (Auto) 0.2, Basophils # (Auto) 0.0 Plan / VTE VTE Prophylaxis Ordered?: Yes (TEDs and sequentials) Plan Plan 1. Rectal bleeding - Differential includes hemorrhoids versus diverticulosis. General surgery on consult. Gastroenterology on consult. Could consider colonoscopy for etiology of bleeding. Hemoglobin currently stable. Typed and screened. Blood transfusion consent obtained and signed by patient. H&H Q6H. Daily labs. Clear liquid diet. Non-pharmacological DVT prophylaxis only with TEDs and sequentials. Holding medications that can increase risk of bleeding. Started NS @ 75 mLs/hr. Ordered Proctofoam. 2. Parkinson's disease - Continue Amantadine, Sinemet, Selegiline, and Pramipexole. Please call patient's , Stella , so she can bring in patient's Selegiline and Pramipexole. Propranolol as needed for tremors. Disposition Admit: Med/surg Anticipated hospitalization: Observation Consult: General surgery, Dr. Del Valle Consult: Gastroenterology, Dr. Hardy IVF: Initiate (NS @ 75 mLs/hr) Diet: Continue Current (clear liquid diet) Activity: Continue Current (OOB to chair) Diagnostics: Check Labs, Repeat Labs in AM Anticipated Discharge: Home HETAL ARGUETA DO Sep 13, 2018 23:56 ANASTACIA REESE MD Sep 14, 2018 07:33
[2018-09-13] MEDS: NS 1,000 ML IV SCH (23:57)
[2018-09-14] MEDS ORDERED: PROCTOFOAM-HC 1% FOAM 10 GM CAN PR PRN
[2018-09-14 00:42] LABS: HEMATOCRIT 38.2 % (42.0-52.0); HEMOGLOBIN 12.8 g/dl (13.5-17.5)
[2018-09-14] MEDS: AMANTADINE 100 MG CAP PO SCH ×4 (01:06→21:32)
[2018-09-14 02:00] VITALS: BP 196/93
[2018-09-14 04:05] VITALS: BP 180/82
[2018-09-14 06:00] VITALS: BP 131/76
[2018-09-14 06:16] LABS: HEMATOCRIT 36.8 % (42.0-52.0); HEMOGLOBIN 12.2 g/dl (13.5-17.5); MEAN CORPUSCULAR HEMOGLOBIN 33.2 pg (27.0-33.0); MEAN CORPUSCULAR HGB CONC 33.2 g/dl (32.0-36.5); PLATELET COUNT, AUTOMATED 153 10^3/uL (150-450); RED BLOOD COUNT 3.68 10^6/uL (4.30-6.10); WHITE BLOOD COUNT 3.1 10^3/uL (4.0-10.0)
[2018-09-14 06:33] LABS: BLOOD UREA NITROGEN 16 MG/DL (7-18); CALCIUM LEVEL 8.5 MG/DL (8.8-10.2); CARBON DIOXIDE LEVEL 27 MEQ/L (21-32); CHLORIDE LEVEL 109 MEQ/L (98-107); CREATININE FOR GFR 0.88 MG/DL (0.70-1.30); GLOMERULAR FILTRATION RATE > 60.0 (>42); GLUCOSE, FASTING 82 MG/DL (70-100); POTASSIUM SERUM 3.5 MEQ/L (3.5-5.1); SODIUM LEVEL 143 MEQ/L (136-145)
[2018-09-14] MEDS: SINEMET 25-100 MG TAB PO SCH ×3 (08:03→21:32)
--- NOTE | 2018-09-14 08:16 | ECGEPIP ---
- ED Test Date: 2018-09-13 Pat Name: GENARO MARTINEZ Department: Room: [place] [address] Gender: Male Bilingual Case Manager: ISAURO : 1945 Requested By: STEFANO HARRIS Order Number: [id number] Reading MD: Ana Latif Measurements Intervals [place] Rate: 58 P: 35 AK: 185 QRS: QRSD: 117 T: 72 QT: 413 QTc: 406 Interpretive Statements SINUS BRADYCARDIA INCOMPLETE RIGHT BUNDLE BRANCH BLOCK LEFT ANTERIOR FASCICULAR BLOCK LEFT VENTRICULAR HYPERTROPHY AND ST-T CHANGE INCREASED RATE COMPARED 07/09/16 Electronically Signed on 09-14-2018 8:15:56 EDT by Ana Latif
--- NOTE | 2018-09-14 09:23 | IPNPDOC ---
Subjective Date Seen The patient was seen on 09/14/18. Subjective Chief Complaint/HPI Patient sitting in chair as I entered the room. Patient reports to be feeling well. He has continued bleeding with bowel movements. Noticed some clotting yesterday. Constitutional: Denies: Chills, Fever Pulmonary: Denies: Dyspnea, Cough Gastrointestinal: Denies: Nausea, Vomiting, Abdominal Pain, Diarrhea, Constipation Neurological: Reports: Other Symptoms (Parkinsons) Psych: Reports: Mood Normal Objective Physical Examination General Exam: Positive: Alert, Cooperative, No Acute Distress Eye Exam: Positive: PERRLA, Conjunctiva & lids normal, EOMI ENT Exam: Positive: Atraumatic, Mucous membr. moist/pink, Pharynx Normal, Tongue Midline Neck Exam: Positive: Supple; Negative: JVD, thyromegaly, Lymphadenopathy Chest Exam: Positive: Clear to auscultation, Normal air movement; Negative: Rales, Rhonchi, Wheezing, Diminished Heart Exam: Positive: Rate Normal, Regular Rhythm, Normal S1, Normal S2; Negative: Gallops, Murmurs, Rubs Telemetry: Positive: Bradycardia (HR 58), Other Telemetry: (LAFB, RBBB) Abdomen Exam: Positive: Normal bowel sounds, Soft; Negative: Tenderness, Hepatospenomegaly, Mass, Hernia Extremity Exam: Positive: Normal pulses, Other (tremulousness); Negative: Clubbing, Cyanosis, Edema Skin Exam: Negative: Rash, Lesion Neuro Exam: Positive: Cranial Nerves 3-12 NL Psych Exam: Positive: Oriented x 3 Assessment /Plan Problems (1) GI bleed Status: Acute Response to Treatment: Stable Problem Specific Plan: Consult Specialist Problem Text: 09/14/18: Hgb 12.2 remains stable, GI and surgery consulted (2) Parkinson disease Status: Chronic Response to Treatment: Stable Problem Text: 09/14/18: Remains on home regimen Plan/VTE VTE Prophylaxis Ordered?: Yes (TEDs and sequentials) Plan IVF: Initiate (NS @ 75 mLs/hr) Diet: Continue Current (clear liquid diet) Activity: Continue Current (OOB to chair) Diagnostics: Check Labs, Repeat Labs in AM Anticipated Discharge: Home Family Medicine Attending Note: I saw and examined Mr. Virk, discussed with Brenda Gomes DNP. Agree with her note as documented. I did do an external rectal examination on the patient. He has protuberant kang/violaceous tissue. I believe these are likely prolapsed hemorrhoids rather than a (pink/red) rectal prolapse. My suspicion is this is where his bleeding is coming from. He is scheduled for colonoscopy on 09/16. We can confirm there is no masses contributing to the bleeding. After that he may require surgical treatment of his very dilated hemorrhoidal veins. 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) VS, I&O, 24H, Fishbone Vital Signs/I&O Vital Signs Date Time Temp Pulse Resp B/P (MAP) Pulse Ox O2 Delivery O2 Flow Rate FiO2 09/14/18 06:00 96.0 57 18 131/76 (94) 98 09/14/18 00:37 Room Air I&O- Last 24 Hours up to 6 AM 09/14/18 06:00 Intake Total 1000 ml Output Total 175 ml Balance 825 ml Laboratory Data 24H LABS Laboratory Tests 2 09/13/18 18:26: Immature Granulocyte % (Auto) 0.3, White Blood Count 5.9, Red Blood Count 3.96L, Hemoglobin 13.5, Hematocrit 41.0L, Mean Corpuscular Volume 103.5H, Mean Tiffani uscular Hemoglobin 34.1H, Mean Corpuscular Hemoglobin Concent 32.9, Red Cell Distribution Width 12.9, Platelet Count 154, Neutrophils (%) (Auto) 67.2H, Lymphocytes (%) (Auto) 20.3L, Monocytes (%) (Auto) 8.3H, Eosinophils (%) (Auto) 3.6H, Basophils (%) (Auto) 0.3, Neutrophils # (Auto) 4.0, Lymphocytes # (Auto) 1.2L, Monocytes # (Auto) 0.5, Eosinophils # (Auto) 0.2, Basophils # (Auto) 0.0, Nucleated Red Blood Cells % (auto) 0.0, Prothrombin Time 14.0, Prothromb Time International Ratio 1.07, Activated Partial Thromboplast Time 34.2, Anion Gap 6L, Glomerular Filtration Rate > 60.0, Calcium Level 8.3L, Aspartate Amino Transf (AST/SGOT) 12, Alanine Aminotransferase (ALT/SGPT) 8L, Alkaline Phospha tase 79, Total Bilirubin 0.5, Direct Bilirubin 0.2, Total Protein 5.7L, Albumin 3.3, Albumin/Globulin Ratio 1.38, Lipase 107 09/14/18 05:31: Nucleated Red Blood Cells % (auto) 0.0, Anion Gap 7L, Glomerular Filtration Rate > 60.0, Calcium Level 8.5L, Blood Urea Nitrogen 16, Creatinine 0.88, Sodium Level 143, Potassium Level 3.5, Chloride Level 109H, Carbon Dioxide Level 27 CBC/BMP Laboratory Tests 09/13/18 18:26 Red Blood Count 3.96 L, Mean Corpuscular Volume 103.5 H, Mean Corpuscular Hemoglobin 34.1 H, Mean Corpuscular Hemoglobin Concent 32.9, Red Cell Distribution Width 12.9, Neutrophils (%) (Auto) 67.2 H, Lymphocytes (%) (Auto) 20.3 L, Monocytes (%) (Auto) 8.3 H, Eosinophils (%) (Auto) 3.6 H, Basophils (%) (Auto) 0.3, Neutrophils # (Auto) 4.0, Lymphocytes # (Auto) 1.2 L, Monocytes # (Auto) 0.5, Eosinophils # (Auto) 0.2, Basophils # (Auto) 0.0 09/14/18 00:24 09/14/18 05:31 Red Blood Count 3.68 L, Mean Corpuscular Volume 100.0 H, Mean Corpuscular Hemoglobin 33.2 H, Mean Corpuscular Hemoglobin Concent 33.2, Red Cell Distri bution Width 12.9, Calcium Level 8.5 L BRENDA GOMES Sep 14, 2018 09:23 Rogelio Pino MD Sep 15, 2018 20:50
[2018-09-14 12:08] LABS: HEMATOCRIT 39.8 % (42.0-52.0); HEMOGLOBIN 13.2 g/dl (13.5-17.5)
[2018-09-14] MEDS: FOLIC ACID 1 MG TAB PO SCH (12:27)
[2018-09-14] MEDS: SELEGILINE 5 MG PO SCH (12:27)
[2018-09-14] MEDS: PRAMIPEXOLE 1 MG PO SCH ×3 (12:28→21:32)
[2018-09-14] MEDS: NS 1,000 ML IV SCH (13:20)
[2018-09-14 14:00] VITALS: BP 143/75
[2018-09-14] MEDS ORDERED: MOM 30ML SUSPENSION UDC PO ONE (17:00)
--- NOTE | 2018-09-14 21:25 | CR ---
DATE OF CONSULTATION: 09/14/2018 REASON FOR CONSULTATION: Rectal bleeding. BRIEF HISTORY OF PRESENT ILLNESS The patient is a 72-year-old male who presents with some rectal bleeding which has been ongoing for almost a week now. Notices more rectal bleeding over the last 24-48 hours and has been using a diaper because of the amount of bleeding that he has had. He has had clots present. He does not complain of any pain with bowel movements. He states that he has not been constipated, although he states that despite not being constipated he does have harder stools over the last few weeks. He has had no fevers or chills. No evidence of colitis, no previous history of proctitis. He has had a CT scan which showed a little bit of thickening in the rectum. Has had a colonoscopy several years ago, but nothing recently. He is not on anticoagulation. However, he is on medication for his rheumatoid arthritis. PAST MEDICAL HISTORY: Significant for history of Parkinson's disease, rheumatoid arthritis, benign prostatic hypertrophy (BPH), DLP, history of Lyme's disease, history of Blount's palsy, history of the ED, history of vitamin D deficiency, history of her Raynaud's phenomenon, history of diverticulitis, history of left knee arthritis, history of left knee surgery and left inguinal hernia repair. MEDICATIONS: Include Amantadine, carbidopa levodopa, folic acid, pramipexole, Selegiline, sulfasalazine and Actemra. He also take some p.r.n. ibuprofen, propranolol and Cialis. PHYSICAL EXAMINATION: Reveals an elderly male who looks stated age. HEENT is unremarkable. Neck: Supple without adenopathy. Lungs are diminished at bases bilaterally with a few crackles posteriorly. Heart is regular with multiple irregular beats. Abdomen is soft, nontender, nondistended. No guarding. No rebound. No peritoneal signs are appreciated. IMPRESSION AND PLAN The patient has evidence of rectal bleeding. I did do a rectal exam. I did not find any significant rectal masses or lesions. What I did find was that the patient does have some mild internal and external hemorrhoids which are palpable on exam, but no evidence of bright red blood with digital rectal exam. Thus at this point, I would recommend proceeding with a colonoscopy. 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 Thus I would recommend proceeding with colonoscopy while the patient is here.
[2018-09-14 22:00] VITALS: BP 160/80
[2018-09-15] MEDS: NS 1,000 ML IV SCH ×2 (04:40→17:00)
[2018-09-15 06:00] VITALS: BP 150/90
[2018-09-15 06:39] LABS: HEMATOCRIT 38.2 % (42.0-52.0); HEMOGLOBIN 12.8 g/dl (13.5-17.5); MEAN CORPUSCULAR HEMOGLOBIN 34.6 pg (27.0-33.0); MEAN CORPUSCULAR HGB CONC 33.5 g/dl (32.0-36.5); MEAN CORPUSCULAR VOLUME 103.2 fl (80.0-96.0); PLATELET COUNT, AUTOMATED 145 10^3/uL (150-450); WHITE BLOOD COUNT 3.5 10^3/uL (4.0-10.0)
[2018-09-15 07:07] LABS: BLOOD UREA NITROGEN 8 MG/DL (7-18); CALCIUM LEVEL 8.3 MG/DL (8.8-10.2); CARBON DIOXIDE LEVEL 28 MEQ/L (21-32); CHLORIDE LEVEL 109 MEQ/L (98-107); CREATININE FOR GFR 0.86 MG/DL (0.70-1.30); GLOMERULAR FILTRATION RATE > 60.0 (>42); GLUCOSE, FASTING 85 MG/DL (70-100); POTASSIUM SERUM 3.6 MEQ/L (3.5-5.1); SODIUM LEVEL 142 MEQ/L (136-145)
[2018-09-15] MEDS: SELEGILINE 5 MG PO SCH (09:31)
[2018-09-15] MEDS: PRAMIPEXOLE 1 MG TAB PO SCH ×3 (09:33→20:11)
[2018-09-15] MEDS: SINEMET 25-100 MG TAB PO SCH ×3 (09:33→20:11)
[2018-09-15] MEDS: AMANTADINE 100 MG CAP PO SCH ×3 (09:35→20:11)
--- NOTE | 2018-09-15 10:24 | IPNPDOC ---
Subjective Date Seen The patient was seen on 09/15/18. Subjective Chief Complaint/HPI Mr. Virk reports that he feels about the same today. He was pleased to note that he had a large bowel movement this morning without any bleeding. He is currently being prepped for a colonoscopy tomorrow. General: Reports: Normal Appetite Constitutional: Denies: Weakness, Weight Loss Pulmonary: Denies: Dyspnea, Cough Cardiovascular: Denies: Chest Pain, Palpitations Psych: Reports: Mood Normal Objective Physical Examination General Exam: Positive: Alert, Cooperative (resting in a chair when I entered the room, he was easily arousable to voice), No Acute Distress Eye Exam: Positive: Conjunctiva & lids normal; Negative: Sclera icteric ENT Exam: Positive: Mucous membr. moist/pink Neck Exam: Negative: Lymphadenopathy Chest Exam: Positive: Clear to auscultation, Normal air movement Heart Exam: Positive: Rate Normal, Regular Rhythm, Normal S1, Normal S2; Negative: Gallops, Murmurs, Rubs Telemetry: Positive: Bradycardia Abdomen Exam: Positive: Normal bowel sounds, Soft; Negative: Tenderness, Hepatospenomegaly, Mass, Hernia Extremity Exam: Positive: Normal pulses; Negative: Edema Neuro Exam: Positive: Cranial Nerves 3-12 NL Psych Exam: Positive: Mood NL, Memory Intact Assessment /Plan Problems (1) GI bleed Status: Acute Response to Treatment: Stable Problem Specific Plan: Consult Specialist Problem Text: His hemoglobin remained stable, although he's become slightly pancytopenic. Overall am not too worried about this, but we will monitor the trend. He has a colonoscopy anticipated tomorrow. (2) Parkinson disease Status: Chronic Response to Treatment: Stable Problem Text: Remains on home regimen Plan/VTE VTE Prophylaxis Ordered?: Yes (TEDs and sequentials) VTE Exclusion Pharmacological: Active Bleeding Plan IVF: Continue Diet: Continue Current (clear liquid diet) Activity: Continue Current (OOB to chair) Diagnostics: Check Labs, Repeat Labs in AM Anticipated Discharge: Home VS, I&O, 24H, Fishbone Vital Signs/I&O Vital Signs Date Time Temp Pulse Resp B/P (MAP) Pulse Ox O2 Delivery O2 Flow Rate FiO2 09/15/18 06:00 97.8 55 16 150/90 (110) 97 09/14/18 00:37 Room Air I&O- Last 24 Hours up to 6 AM 09/15/18 06:00 Intake Total 2405 ml Output Total 1300 ml Balance 1105 ml Laboratory Data 24H LABS Laboratory Tests 2 09/15/18 06:25: Nucleated Red Blood Cells % (auto) 0.0, Anion Gap 5L, Glomerular Filtration Rate > 60.0, Blood Urea Nitrogen 8, Creatinine 0.86, Sodium Level 142, Potassium Level 3.6, Chloride Level 109H, Carbon Dioxide Level 28, Calcium Level 8.3L CBC/BMP Laboratory Tests 09/14/18 11:52 09/15/18 06:25 Red Blood Count 3.70 L, Mean Corpuscular Volume 103.2 H, Mean Corpuscular Hemoglobin 34.6 H, Mean Corpuscular Hemoglobin Concent 33.5, Red Cell Distribution Width 13.0, Calcium Level 8.3 L Rogelio Pino MD Sep 15, 2018 10:24
[2018-09-15] MEDS ORDERED: MIRALAX *UNIT DOSE* 17GM PACKET PO ONE (11:00)
[2018-09-15] MEDS: FOLIC ACID 1 MG TAB PO SCH (12:30)
[2018-09-15 14:00] VITALS: BP 168/82
[2018-09-15] MEDS ORDERED: POLYETHYLENE GLYCOL (MIRALAX) 238GM BOTTLE PO ONE (18:00)
[2018-09-15 22:00] VITALS: BP 138/70
[2018-09-16] VITALS (9 sets, daily range): BP systolic 96–162; BP diastolic 64–84
[2018-09-16] MEDS: NS 1,000 ML IV SCH (05:47)
[2018-09-16 05:51] LABS: HEMATOCRIT 40.1 % (42.0-52.0); HEMOGLOBIN 13.3 g/dl (13.5-17.5); MEAN CORPUSCULAR HEMOGLOBIN 33.4 pg (27.0-33.0); MEAN CORPUSCULAR HGB CONC 33.2 g/dl (32.0-36.5); MEAN CORPUSCULAR VOLUME 100.8 fl (80.0-96.0); PLATELET COUNT, AUTOMATED 160 10^3/uL (150-450); RED BLOOD COUNT 3.98 10^6/uL (4.30-6.10); WHITE BLOOD COUNT 3.2 10^3/uL (4.0-10.0)
[2018-09-16 06:19] LABS: BLOOD UREA NITROGEN 5 MG/DL (7-18); CALCIUM LEVEL 8.2 MG/DL (8.8-10.2); CARBON DIOXIDE LEVEL 30 MEQ/L (21-32); CHLORIDE LEVEL 107 MEQ/L (98-107); GLOMERULAR FILTRATION RATE > 60.0 (>42); GLUCOSE, FASTING 81 MG/DL (70-100); POTASSIUM SERUM 3.5 MEQ/L (3.5-5.1); SODIUM LEVEL 141 MEQ/L (136-145)
[2018-09-16] MEDS ORDERED: LIDOCAINE 2% INJ 100 MG/5 ML SDV (FOR ANES.) As Ordered ONE (07:03)
[2018-09-16] MEDS ORDERED: PROPOFOL 200 MG/20 ML VIAL As Ordered ONE ×4 (07:03→08:24)
[2018-09-16] MEDS ORDERED: hydrALAZINE INJ 20 MG/ML VIAL As Ordered ONE (07:41)
--- NOTE | 2018-09-16 08:33 | ROOR ---
Patient Name: Raj Virk Procedure Date: 09/16/2018 7:12 AM Date of : 1945 Age: 72 Room: [facility] Gender: Male Note Status: Finalized Procedure: Colonoscopy Indications: Hematochezia Providers: Anastacio HARDY MD Referring MD: 2. Inpatient 2. Inpatient, Jero Hair MD Requesting Provider: Medicines: Monitored Anesthesia Care Complications: No immediate complications. Procedure: Pre-Anesthesia Assessment: - The heart rate, respiratory rate, oxygen saturations, blood pressure, adequacy of pulmonary ventilation, and response to care were monitored throughout the procedure. The Colonoscope was introduced through the anus and advanced to the cecum, identified by appendiceal orifice and ileocecal valve. The colonoscopy was performed with difficulty due to a redundant colon. Successful completion of the procedure was aided by changing the patient's position. The patient tolerated the procedure well. The quality of the bowel preparation was adequate. Findings: Skin tags were found on perianal exam. Internal hemorrhoids were found during retroflexion. The hemorrhoids were large. A few medium-mouthed diverticula were found in the sigmoid colon. The exam was otherwise without abnormality on direct and retroflexion views. Impression: - Perianal skin tags found on perianal exam. - Moderate to large Internal hemorrhoids. - Mild diverticulosis in the sigmoid colon. - Long redundant colon.The colon examination was otherwise normal on direct and retroflexion views. - No specimens collected. Recommendation: - For persistent rectal bleeding referral for hemorrhoid surgery can be considered. - Pt may be discharged home from my standpoint. Anastacio Hardy MD Anastacio HARDY MD 09/16/2018 8:33:19 AM Electronically signed by Anastacio HARDY MD Number of Addenda: 0 Note Initiated On: 09/16/2018 7:12 AM Estimated Blood Loss: Estimated blood loss: none.
[2018-09-16] MEDS: SINEMET 25-100 MG TAB PO SCH (09:56)
[2018-09-16] MEDS: PRAMIPEXOLE 1 MG TAB PO SCH (09:56)
[2018-09-16] MEDS: AMANTADINE 100 MG CAP PO SCH (09:56)
[2018-09-16] MEDS: SELEGILINE 5 MG PO SCH (09:56)
[2018-09-16] MEDS: FOLIC ACID 1 MG TAB PO SCH (12:59)
--- NOTE | 2018-09-16 16:11 | DS.PDOC ---
Discharge Summary General Date of Admission Sep 15, 2018 at 10:40 Date of Discharge 09/16/18 Primary Care Physician: Jero Hair MD Attending Physician: Rogelio Pino MD Specialist/Consultants Involve: ACSEY HARDY MD Discharge Summary PROCEDURES PERFORMED DURING STAY: Colonoscopy ADMITTING DIAGNOSES: 1. GI bleed DISCHARGE DIAGNOSES: 1. GI Bleed 2. Hemorrhoids COMPLICATIONS/CHIEF COMPLAINT: Gi Bleed. HISTORY OF PRESENT ILLNESS: Presented to [facility] Emergency Department with rectal bleeding. Patient was in [place] on 09/05/2018 for his nephew's wedding when he first noticed bleeding from his anus which was bright red. He does have a history of hemorrhoids and initially thought that they were bleeding. There were no clots. He continued to bleed once he returned home and borrowed adult diapers from a family member. The bleeding was intermittent and worsened after he took a shower and his bleeding became more consistent. He eventually called a friend to have him transported to the Emergency Department for further evaluation. He denied weakness, lightheadedness, dizziness. He had no pain with defecation. He was not constipated or having diarrhea. There was no abdominal pain. He denied chest pain or shortness of breath. HOSPITAL COURSE: Plan 1. Rectal bleeding - General surgery and GI were both consulted initially. Patient had a colonoscopy performed on 09/16/[address] Hardy. Colonoscopy results: Skin tags were found on perianal exam. Internal hemorrhoids were found during retroflexion. The hemorrhoids were large. A few medium-mouthed diverticula were found in the sigmoid colon. The exam was otherwise without abnormality on direct and retroflexion views. Recommendation from Dr. Hardy: Persistent rectal bleeding referral for hemorrhoid surgery can be considered. Pt was cleared for discharge from GI standpoint. He Hgb remained stable. Bleeding was almost completely resolved on day of discharge. 2. Parkinson's disease - Patient was maintained on Amantadine, Sinemet, Alona giline, and Pramipexole. DISCHARGE MEDICATIONS: Please see below. ALLERGIES: Please see below. PHYSICAL EXAMINATION ON DISCHARGE: VITAL SIGNS: Please see below. GENERAL: AOx3 HEENT: unremarkable NECK: supple, no lymphadenopathy CARDIOVASCULAR EXAMINATION: RRR RESPIRATORY EXAMINATION: CTA ABDOMINAL EXAMINATION: soft, non-tender, non-distended EXTREMITIES: no edema SKIN: warm, dry LABORATORY DATA: Please see below. IMAGING: CT Abdomen/Pelvis IMPRESSION: 1. Mild asymmetric wall thickening of the rectum is visualized. This can be due to proctitis, although additional pathology including rectal mass cannot be excluded. This is new compared to the prior study. Further clinical evaluation is recommended. 2. Diverticulosis. 3. Adjacent to the splenic hilum, there is a peripherally calcified suggestive aneurysm measuring 7 mm in diameter. 4. Additional findings described in full report. PROGNOSIS: Good ACTIVITY: As tolerated DISCHARGE PLAN: To home DISCHARGE INSTRUCTIONS: 1. F/U with PCP in one week . ITEMS TO FOLLOWUP ON ON OUTPATIENT: 1. Hemorrhoids Vital Signs/I&Os Vital Signs Date Time Temp Pulse Resp B/P (MAP) Pulse Ox O2 Delivery O2 Flow Rate FiO2 09/16/18 10:00 97.8 63 18 160/74 (102) 95 09/14/18 00:37 Room Air I&O- Last 24 Hours up to 6 AM 09/16/18 06:00 Intake Total 600 ml Output Total 3025 ml Balance -2425 ml Laboratory Data Labs 24H Laboratory Tests 2 09/16/18 05:31: Nucleated Red Blood Cells % (auto) 0.0, Anion Gap 4L, Glomerular Filtration Rate > 60.0, Blood Urea Nitrogen 5L, Creatinine 0.90, Sodium Level 141, Potassium Level 3.5, Chloride Level 107, Carbon Dioxide Level 30, Calcium Level 8.2L CBC/BMP Laboratory Tests 09/16/18 05:31 Red Blood Count 3.98 L, Mean Corpuscular Volume 100.8 H, Mean Corpuscular Hemoglobin 33.4 H, Mean Corpuscular Hemoglobin Concent 33.2, Red Cell Distribution Width 12.9, Calcium Level 8.2 L Discharge Medications Scheduled Amantadine HCl (Amantadine) 100 Mg Tablet, 100 MG PO TID, (Reported) 0800, 1200, AND 1700 Carbidopa/Levodopa (Carbidopa-Levodopa 25-100 Tab) 1 Tab Tab, 2 TAB PO TID, (Reported) 0800, 1200, AND 1700 Folic Acid (Folic Acid) 1 Mg Tab, 2 MG PO DAILY, (Reported) AT 1200 Pramipexole Di-HCl (Pramipexole Dihydrochloride) 1 Mg Tablet, 1 MG PO TID, (Reported) 0800, 1200, AND 1700 Selegiline HCl (Selegiline HCl) 5 Mg Cap, 5 MG PO DAILY, (Reported) Sulfasalazine (Sulfasalazine Dr) 500 Mg Tabec, 500 MG PO QPM, (Reported) AT 1700 Sulfasalazine (Sulfasalazine Dr) 500 Mg Tabec, 1,000 MG PO QHS, (Reported) AT 2000 Tocilizumab (Actemra) 80 Mg/4 Ml Inj, 80 MG IV QMONTH, (Reported) EVERY 4 WEEKS. PATIENT INDICATES HE DOES NOT KNOW DATE OF LAST INFUSION BUT BELIEVES HE MISSED LAST APPOINTMENT. RECORDS INDICATE 08/20/18 LAST INFUSION DATE. Scheduled PRN Ibuprofen (Ibuprofen) 800 Mg Tablet, 800 MG PO DAILY PRN for PAIN, (Reported) Propranolol HCl (Propranolol HCl) 10 Mg Tab, 10 MG PO DAILY PRN for TREMORS, (Reported) Sildenafil Citrate (Sildenafil Citrate) 100 Mg Tablet, 100 MG PO ASDIRECTED PRN for ERECTILE DYSFUNCTION, (Reported) Allergies Coded Allergies: No Known Drug Allergies (Verified Allergy, Unknown, 08/20/18) BRENDA GOMESP Sep 16, 2018 11:43
== END 2018-09-16 14:23 | disposition home or self-care (01) | DRG 253 ==
LOC: M ED 14:56 → M ED INP 14:57 → M MSPAV 09-14 02:00 → OBSVTOIN 09-15 10:40
PROVIDERS: ADMIT Internal Medicine; ATTEND Family Medicine
PROC: 0DJD8ZZ Inspection of Lower Intestinal Tract, Via Natural or Artificial Opening Endoscopic (ICD-10-PCS; principal; 2018-09-16 07:30)
DX: K62.5 Hemorrhage of anus and rectum (principal); G20 Parkinson's disease; M06.9 Rheumatoid arthritis, unspecified; N40.0 Benign prostatic hyperplasia without lower urinary tract symptoms; E78.5 Hyperlipidemia, unspecified; N52.9 Male erectile dysfunction, unspecified; K57.30 Diverticulosis of large intestine without perforation or abscess without bleeding; K64.4 Residual hemorrhoidal skin tags; E55.9 Vitamin D deficiency, unspecified; I73.00 Raynaud's syndrome without gangrene; K64.8 Other hemorrhoids; Z96.652 Presence of left artificial knee joint; Z87.891 Personal history of nicotine dependence

== ENCOUNTER → 2018-12-22 | Outpatient (REF) | payer OTHER ==
[~2018-12-22] MED LIST changes: +AMAN100T PO; +IBUP1TAB7 PO; +PRAM1TAB7 PO; +SILD100T PO
[2018-12-22 12:37] LABS: BASO % 0.7 % (0.0-1.0); EOS # 0.1 10^3/uL (0.0-0.5); EOS % 3.2 % (0.0-3.0); HEMATOCRIT 41.5 % (42.0-52.0); HEMOGLOBIN 13.4 g/dl (13.5-17.5); LYMPH # 0.9 10^3/uL (1.5-5.0); LYMPH % 20.8 % (24.0-44.0); MEAN CORPUSCULAR HEMOGLOBIN 31.8 pg (27.0-33.0); MEAN CORPUSCULAR HGB CONC 32.3 g/dl (32.0-36.5); MEAN CORPUSCULAR VOLUME 98.6 fl (80.0-96.0); MONO # 0.5 10^3/uL (0.0-0.8); MONO % 10.7 % (0.0-5.0); NEUTROPHILS # 2.8 10^3/uL (1.5-8.5); NEUTROPHILS % 64.1 % (36.0-66.0); PLATELET COUNT, AUTOMATED 208 10^3/uL (150-450); RED BLOOD COUNT 4.21 10^6/uL (4.30-6.10); WHITE BLOOD COUNT 4.4 10^3/uL (4.0-10.0)
[2018-12-22 12:55] LABS: ALBUMIN 3.7 GM/DL (3.2-5.2); ALT/SGPT 10 U/L (12-78); BILIRUBIN,TOTAL 0.5 MG/DL (0.2-1.0); BLOOD UREA NITROGEN 20 MG/DL (7-18); C REACTIVE PROTEIN QUANTITATIV < 0.30 MG/DL (0.00-0.30); CARBON DIOXIDE LEVEL 28 MEQ/L (21-32); CHLORIDE LEVEL 106 MEQ/L (98-107); CREATININE FOR GFR 0.89 MG/DL (0.70-1.30); GLOMERULAR FILTRATION RATE > 60.0 (>42); GLUCOSE, FASTING 78 MG/DL (70-100); POTASSIUM SERUM 4.1 MEQ/L (3.5-5.1); SODIUM LEVEL 141 MEQ/L (136-145); TOTAL PROTEIN 6.2 GM/DL (6.4-8.2)
[2018-12-22 13:37] LABS: ERYTHROCYTE SEDIMENTATION RATE 5 mm/hr (0-20)
== END ==
LOC: M SFHCADAM 11:06
PROVIDERS: ATTEND Family Medicine
DX: M06.9 Rheumatoid arthritis, unspecified (principal)

== ENCOUNTER → 2019-04-19 | Outpatient (REF) | payer OTHER ==
[2019-04-19 17:49] LABS: BASO % 0.5 % (0.0-1.0); EOS # 0.1 10^3/uL (0.0-0.5); EOS % 2.7 % (0.0-3.0); HEMATOCRIT 42.2 % (42.0-52.0); HEMOGLOBIN 13.4 g/dl (13.5-17.5); LYMPH # 0.9 10^3/uL (1.5-5.0); LYMPH % 20.5 % (24.0-44.0); MEAN CORPUSCULAR HGB CONC 31.8 g/dl (32.0-36.5); MEAN CORPUSCULAR VOLUME 100.7 fl (80.0-96.0); MONO # 0.5 10^3/uL (0.0-0.8); MONO % 10.9 % (0.0-5.0); NEUTROPHILS # 2.9 10^3/uL (1.5-8.5); NEUTROPHILS % 64.9 % (36.0-66.0); PLATELET COUNT, AUTOMATED 224 10^3/uL (150-450); RED BLOOD COUNT 4.19 10^6/uL (4.30-6.10); WHITE BLOOD COUNT 4.4 10^3/uL (4.0-10.0)
[2019-04-19 17:56] LABS: ALBUMIN 3.5 GM/DL (3.2-5.2); ALT/SGPT 8 U/L (12-78); BILIRUBIN,TOTAL 0.6 MG/DL (0.2-1.0); BLOOD UREA NITROGEN 19 MG/DL (7-18); C REACTIVE PROTEIN QUANTITATIV 0.42 MG/DL (0.00-0.30); CALCIUM LEVEL 8.8 MG/DL (8.8-10.2); CARBON DIOXIDE LEVEL 29 MEQ/L (21-32); CHLORIDE LEVEL 107 MEQ/L (98-107); GLOMERULAR FILTRATION RATE > 60.0 (>42); GLUCOSE, FASTING 79 MG/DL (70-100); POTASSIUM SERUM 4.8 MEQ/L (3.5-5.1); SODIUM LEVEL 142 MEQ/L (136-145); TOTAL PROTEIN 6.2 GM/DL (6.4-8.2)
[2019-04-19 18:19] LABS: ERYTHROCYTE SEDIMENTATION RATE 6 mm/hr (0-20)
== END ==
LOC: M SFHCRHEU 11:27
PROVIDERS: ATTEND Internal Medicine
DX: M06.9 Rheumatoid arthritis, unspecified (principal)

== ENCOUNTER → 2019-04-25 | Outpatient (REF) | payer OTHER | LOC: M LAB REF 09:27 | PROVIDERS: ATTEND Dermatology | DX: D49.2 Neoplasm of unspecified behavior of bone, soft tissue, and skin (principal) ==

== ENCOUNTER → 2019-10-19 | Outpatient (REF) | payer OTHER ==
[~2019-10-19] MED LIST changes: +SULF500T41 PO; -SULF50TA PO
[2019-10-19 14:14] LABS: HEMATOCRIT 43.2 % (42.0-52.0); HEMOGLOBIN 13.7 g/dl (13.5-17.5); MEAN CORPUSCULAR HEMOGLOBIN 31.1 pg (27.0-33.0); MEAN CORPUSCULAR HGB CONC 31.7 g/dl (32.0-36.5); PLATELET COUNT, AUTOMATED 241 10^3/uL (150-450); RED BLOOD COUNT 4.41 10^6/uL (4.30-6.10); WHITE BLOOD COUNT 5.8 10^3/uL (4.0-10.0)
[2019-10-19 14:45] LABS: ALBUMIN 3.7 GM/DL (3.2-5.2); ALT/SGPT 10 U/L (12-78); BILIRUBIN,TOTAL 0.7 MG/DL (0.2-1.0); BLOOD UREA NITROGEN 19 MG/DL (7-18); CALCIUM LEVEL 8.8 MG/DL (8.8-10.2); CARBON DIOXIDE LEVEL 28 MEQ/L (21-32); CHLORIDE LEVEL 107 MEQ/L (98-107); CHOLESTEROL LEVEL 214 MG/DL (<200); CHOLESTEROL RISK RATIO 2.641 (<5); CREATININE FOR GFR 1.03 MG/DL (0.70-1.30); FREE T4 1.16 NG/DL (0.76-1.46); GLOMERULAR FILTRATION RATE > 60.0 (>42); GLUCOSE, FASTING 80 MG/DL (70-100); HDL CHOLESTEROL 81 MG/DL (>40); LDL CHOLESTEROL 124 MG/DL (<100); NON-HDL-C 133 MG/DL; POTASSIUM SERUM 4.4 MEQ/L (3.5-5.1); SODIUM LEVEL 142 MEQ/L (136-145); TOTAL PROTEIN 6.4 GM/DL (6.4-8.2); TRIGLYCERIDES LEVEL 47 MG/DL (<150)
== END ==
LOC: M SFHCADAM 08:52
PROVIDERS: ATTEND Family Medicine
DX: M06.9 Rheumatoid arthritis, unspecified (principal); G20 Parkinson's disease; E78.5 Hyperlipidemia, unspecified; E03.9 Hypothyroidism, unspecified

== ENCOUNTER → 2019-11-25 | Outpatient (CLI) | payer BC, OTHER ==
--- NOTE | 2020-01-05 09:12 | REP ---
RIGHT WRIST SERIES: FOUR VIEWS HISTORY: Pain one week after a fall. FINDINGS: Four views of the right wrist demonstrate advanced erosive arthropathy affecting the radiocarpal, intercarpal, and carpometacarpal articulations of the wrist. There is diffuse swelling. There are multiple subcortical cysts associated with the arthropathy. There is considerable joint space narrowing. No fracture or subluxation is seen. IMPRESSION: Advanced radiocarpal and intercarpal arthropathy. Diffuse swelling. No acute fracture is seen. MTDD
--- NOTE | 2020-01-05 09:13 | REP ---
RIGHT HAND SERIES: FOUR VIEWS HISTORY: One week post fall on outstretched hand. Rule out fracture. Pain right hand and wrist. FINDINGS: Four views of the right hand demonstrate diffuse osteopenia. There are advanced erosive arthropathy changes at the carpus and radiocarpal joints, as well as at the MCP joints. Subcortical cyst formation is seen at multiple sites about the wrist. There is soft tissue swelling diffusely. No acute fracture is seen. IMPRESSION: Advanced erosive arthropathy affecting the wrist. No acute fracture or subluxation seen. [facility]
== END ==
LOC: M WUC 12:30
PROVIDERS: ATTEND Nurse Practitioner Family
DX: M25.531 Pain in right wrist (principal); M79.641 Pain in right hand

== ENCOUNTER → 2020-01-18 | Outpatient (REF) | payer BC, OTHER, MEDICARE ==
[2020-01-18 14:11] LABS: BASO % 0.4 % (0.0-1.0); EOS # 0.1 10^3/uL (0.0-0.5); EOS % 1.9 % (0.0-3.0); HEMATOCRIT 42.9 % (42.0-52.0); HEMOGLOBIN 13.4 g/dl (13.5-17.5); LYMPH # 1.1 10^3/uL (1.5-5.0); LYMPH % 19.8 % (24.0-44.0); MEAN CORPUSCULAR HEMOGLOBIN 30.9 pg (27.0-33.0); MEAN CORPUSCULAR HGB CONC 31.2 g/dl (32.0-36.5); MEAN CORPUSCULAR VOLUME 98.8 fl (80.0-96.0); MONO # 0.6 10^3/uL (0.0-0.8); MONO % 9.9 % (0.0-5.0); NEUTROPHILS # 3.8 10^3/uL (1.5-8.5); NEUTROPHILS % 67.5 % (36.0-66.0); PLATELET COUNT, AUTOMATED 232 10^3/uL (150-450); RED BLOOD COUNT 4.34 10^6/uL (4.30-6.10); WHITE BLOOD COUNT 5.7 10^3/uL (4.0-10.0)
[2020-01-18 14:43] LABS: ALBUMIN 3.6 GM/DL (3.2-5.2); ALT/SGPT 11 U/L (12-78); BILIRUBIN,TOTAL 0.6 MG/DL (0.2-1.0); BLOOD UREA NITROGEN 17 MG/DL (7-18); C REACTIVE PROTEIN QUANTITATIV 0.49 MG/DL (0.00-0.30); CALCIUM LEVEL 9.1 MG/DL (8.8-10.2); CARBON DIOXIDE LEVEL 31 MEQ/L (21-32); CHLORIDE LEVEL 106 MEQ/L (98-107); CREATININE FOR GFR 0.97 MG/DL (0.70-1.30); GLOMERULAR FILTRATION RATE > 60.0 (>42); GLUCOSE, FASTING 85 MG/DL (70-100); SODIUM LEVEL 142 MEQ/L (136-145); TOTAL PROTEIN 6.3 GM/DL (6.4-8.2)
[2020-01-18 14:54] LABS: ERYTHROCYTE SEDIMENTATION RATE 5 mm/hr (0-20)
[2020-01-18 15:00] LABS: HEPATITIS B SURFACE ANTIGEN NEGATIVE (NEGATIVE)
[2020-01-18 15:29] LABS: HEPATITIS C VIRUS ABY INDEX 0.1 INDEX (<0.8)
[2020-01-21 03:07] LABS: HEPATITIS B CORE ANTIBODY IGG Negative (Negative)
== END ==
LOC: M LABDRWAD 12:36
PROVIDERS: ATTEND Internal Medicine
DX: M05.79 Rheumatoid arthritis with rheumatoid factor of multiple sites without organ or systems involvement (principal)

== ENCOUNTER → 2020-03-28 | Outpatient (REF) | payer OTHER ==
[2020-03-28 13:42] LABS: BASO % 0.6 % (0.0-1.0); EOS # 0.1 10^3/uL (0.0-0.5); EOS % 2.7 % (0.0-3.0); HEMATOCRIT 45.9 % (42.0-52.0); HEMOGLOBIN 14.1 g/dl (13.5-17.5); LYMPH # 0.9 10^3/uL (1.5-5.0); LYMPH % 18.1 % (24.0-44.0); MEAN CORPUSCULAR HEMOGLOBIN 30.5 pg (27.0-33.0); MEAN CORPUSCULAR HGB CONC 30.7 g/dl (32.0-36.5); MEAN CORPUSCULAR VOLUME 99.4 fl (80.0-96.0); MONO # 0.6 10^3/uL (0.0-0.8); MONO % 11.6 % (0.0-5.0); NEUTROPHILS # 3.5 10^3/uL (1.5-8.5); NEUTROPHILS % 66.4 % (36.0-66.0); PLATELET COUNT, AUTOMATED 236 10^3/uL (150-450); RED BLOOD COUNT 4.62 10^6/uL (4.30-6.10); WHITE BLOOD COUNT 5.2 10^3/uL (4.0-10.0)
[2020-03-28 14:04] LABS: ALBUMIN 3.9 GM/DL (3.2-5.2); ALT/SGPT 9 U/L (12-78); BILIRUBIN,TOTAL 0.8 MG/DL (0.2-1.0); BLOOD UREA NITROGEN 16 MG/DL (7-18); C REACTIVE PROTEIN QUANTITATIV 0.38 MG/DL (0.00-0.30); CARBON DIOXIDE LEVEL 29 MEQ/L (21-32); CHLORIDE LEVEL 103 MEQ/L (98-107); CREATININE FOR GFR 0.94 MG/DL (0.70-1.30); GLOMERULAR FILTRATION RATE > 60.0 (>42); GLUCOSE, FASTING 87 MG/DL (70-100); SODIUM LEVEL 139 MEQ/L (136-145); TOTAL PROTEIN 6.7 GM/DL (6.4-8.2)
[2020-03-28 14:50] LABS: ERYTHROCYTE SEDIMENTATION RATE 5 mm/hr (0-20)
== END ==
LOC: M SFHCADAM 11:14
PROVIDERS: ATTEND Internal Medicine
DX: M06.09 Rheumatoid arthritis without rheumatoid factor, multiple sites (principal)

== ENCOUNTER → 2020-05-21 | Outpatient (REF) | payer OTHER ==
[2020-05-21 18:28] LABS: BASO % 0.6 % (0.0-1.0); EOS % 0.8 % (0.0-3.0); HEMATOCRIT 39.1 % (42.0-52.0); HEMOGLOBIN 12.7 g/dl (13.5-17.5); LYMPH # 0.5 10^3/uL (1.5-5.0); MEAN CORPUSCULAR HEMOGLOBIN 32.1 pg (27.0-33.0); MEAN CORPUSCULAR HGB CONC 32.5 g/dl (32.0-36.5); MEAN CORPUSCULAR VOLUME 98.7 fl (80.0-96.0); MONO # 0.7 10^3/uL (0.0-0.8); MONO % 19.4 % (0.0-5.0); NEUTROPHILS # 2.3 10^3/uL (1.5-8.5); NEUTROPHILS % 63.4 % (36.0-66.0); PLATELET COUNT, AUTOMATED 155 10^3/uL (150-450); RED BLOOD COUNT 3.96 10^6/uL (4.30-6.10); WHITE BLOOD COUNT 3.6 10^3/uL (4.0-10.0)
[2020-05-21 19:03] LABS: ALBUMIN 3.5 GM/DL (3.2-5.2); ALT/SGPT 8 U/L (12-78); BILIRUBIN,TOTAL 0.7 MG/DL (0.2-1.0); BLOOD UREA NITROGEN 19 MG/DL (7-18); C REACTIVE PROTEIN QUANTITATIV 3.03 MG/DL (0.00-0.30); CALCIUM LEVEL 8.8 MG/DL (8.8-10.2); CARBON DIOXIDE LEVEL 31 MEQ/L (21-32); CHLORIDE LEVEL 102 MEQ/L (98-107); CREATININE FOR GFR 0.99 MG/DL (0.70-1.30); GLOMERULAR FILTRATION RATE > 60.0 (>42); GLUCOSE, FASTING 81 MG/DL (70-100); SODIUM LEVEL 138 MEQ/L (136-145); TOTAL PROTEIN 6.1 GM/DL (6.4-8.2)
[2020-05-21 19:09] LABS: ERYTHROCYTE SEDIMENTATION RATE 17 mm/hr (0-20)
== END ==
LOC: M SFHCADAM 11:43
PROVIDERS: ATTEND Family Medicine
DX: M06.09 Rheumatoid arthritis without rheumatoid factor, multiple sites (principal)

== ENCOUNTER → 2020-06-07 | Outpatient (REF) | payer OTHER ==
[2020-06-07 13:10] LABS: BASO % 0.5 % (0.0-1.0); EOS # 0.1 10^3/uL (0.0-0.5); HEMATOCRIT 40.7 % (42.0-52.0); HEMOGLOBIN 12.5 g/dl (13.5-17.5); LYMPH # 0.9 10^3/uL (1.5-5.0); LYMPH % 14.5 % (24.0-44.0); MEAN CORPUSCULAR HEMOGLOBIN 31.2 pg (27.0-33.0); MEAN CORPUSCULAR HGB CONC 30.7 g/dl (32.0-36.5); MEAN CORPUSCULAR VOLUME 101.5 fl (80.0-96.0); MONO # 0.7 10^3/uL (0.0-0.8); MONO % 12.1 % (2.0-8.0); NEUTROPHILS # 4.1 10^3/uL (1.5-8.5); NEUTROPHILS % 70.4 % (36.0-66.0); PLATELET COUNT, AUTOMATED 334 10^3/uL (150-450); RED BLOOD COUNT 4.01 10^6/uL (4.30-6.10); WHITE BLOOD COUNT 5.9 10^3/uL (4.0-10.0)
[2020-06-07 13:48] LABS: ALBUMIN 3.4 GM/DL (3.2-5.2); ALT/SGPT 7 U/L (12-78); BILIRUBIN,TOTAL 0.5 MG/DL (0.2-1.0); BLOOD UREA NITROGEN 15 MG/DL (7-18); CALCIUM LEVEL 9.2 MG/DL (8.8-10.2); CARBON DIOXIDE LEVEL 34 MEQ/L (21-32); CHLORIDE LEVEL 105 MEQ/L (98-107); CREATININE FOR GFR 0.84 MG/DL (0.70-1.30); FREE T4 1.05 NG/DL (0.76-1.46); GLOMERULAR FILTRATION RATE > 60.0 (>42); GLUCOSE, FASTING 69 MG/DL (70-100); POTASSIUM SERUM 4.6 MEQ/L (3.5-5.1); SODIUM LEVEL 141 MEQ/L (136-145); TOTAL PROTEIN 6.4 GM/DL (6.4-8.2)
[2020-06-07 14:05] LABS: HEMOGLOBIN A1c 4.9 %
== END ==
LOC: M SFHCADAM 10:48
PROVIDERS: ATTEND Family Medicine
DX: R63.4 Abnormal weight loss (principal); Z12.5 Encounter for screening for malignant neoplasm of prostate

== ENCOUNTER → 2020-07-16 | Outpatient (CLI) | payer BC, OTHER ==
--- NOTE | 2020-07-17 04:24 | REP ---
INDICATION: ABN WEIGHT LOSS, LYMPHADENOPATHY COMPARISON: 09/13/2018 TECHNIQUE: Axial noncontrast images from the lung bases to the pubic symphysis with coronal and sagittal reformations. This CT examination was performed using the following dose reduction techniques: Automated exposure control, adjustment of mA and/or kv according to the patient's size, and use of iterative reconstruction technique. FINDINGS: Lung bases demonstrate minimal chronic appearing changes. Evaluation of the abdomen is significantly limited by the lack of both oral and intravenous contrast enhancement as well as lack of intraperitoneal fat. Liver, spleen, pancreas, collapsed gallbladder, bilateral adrenal glands and kidneys are grossly normal for noncontrast evaluation and essentially stable. Calcification adjacent to the splenic hilum is unchanged and represents small chronic calcified vascular changes. The enteric system is poorly evaluated, but there is no evidence for obstruction or obvious acute inflammatory process. Diverticulosis noted without acute diverticulitis. Portions of a normal appendix are identified in the right lower quadrant. Pelvis demonstrates normal bladder and mildly enlarged prostate gland. No ascites. No free air. No adenopathy. No focal acute inflammatory stranding. Atherosclerotic changes to the aorta and vasculature noted without aneurysm. Evaluation for adenopathy is significantly limited although no obvious significant retroperitoneal/periaortic adenopathy is identified. IMPRESSION: Limited examination. No obvious acute abdominopelvic pathology appreciated. Diverticulosis. No ascites or focal inflammatory stranding. No definite adenopathy. <Electronically signed by Ari Shaw > 07/17/20 [id number]
== END ==
LOC: M RAD 16:32
PROVIDERS: ATTEND Family Medicine
DX: K57.90 Diverticulosis of intestine, part unspecified, without perforation or abscess without bleeding (principal); R63.4 Abnormal weight loss; R59.1 Generalized enlarged lymph nodes

== ENCOUNTER → 2020-12-25 | Outpatient (REF) | payer MEDICARE, OTHER ==
[2020-12-25 12:58] LABS: HEMATOCRIT 40.9 % (42.0-52.0); HEMOGLOBIN 12.8 g/dl (13.5-17.5); MEAN CORPUSCULAR HEMOGLOBIN 30.3 pg (27.0-33.0); MEAN CORPUSCULAR HGB CONC 31.3 g/dl (32.0-36.5); MEAN CORPUSCULAR VOLUME 96.7 fl (80.0-96.0); PLATELET COUNT, AUTOMATED 255 10^3/uL (150-450); RED BLOOD COUNT 4.23 10^6/uL (4.30-6.10); WHITE BLOOD COUNT 6.7 10^3/uL (4.0-10.0)
[2020-12-25 13:43] LABS: ERYTHROCYTE SEDIMENTATION RATE 17 mm/hr (0-20)
[2020-12-25 14:10] LABS: ALBUMIN 3.2 GM/DL (3.2-5.2); ALT/SGPT 12 U/L (12-78); BILIRUBIN,TOTAL 0.5 MG/DL (0.2-1.0); BLOOD UREA NITROGEN 19 MG/DL (7-18); C REACTIVE PROTEIN QUANTITATIV 2.28 MG/DL (0.00-0.30); CALCIUM LEVEL 8.9 MG/DL (8.8-10.2); CARBON DIOXIDE LEVEL 28 MEQ/L (21-32); CHLORIDE LEVEL 104 MEQ/L (98-107); CHOLESTEROL LEVEL 193 MG/DL (<200); CHOLESTEROL RISK RATIO 2.412 (<5); CREATININE FOR GFR 0.86 MG/DL (0.70-1.30); FREE T4 0.96 NG/DL (0.76-1.46); GLOMERULAR FILTRATION RATE > 60.0 (>42); GLUCOSE, FASTING 115 MG/DL (70-100); HDL CHOLESTEROL 80 MG/DL (>40); LDL CHOLESTEROL 104 MG/DL (<100); NON-HDL-C 113 MG/DL; POTASSIUM SERUM 4.1 MEQ/L (3.5-5.1); SODIUM LEVEL 139 MEQ/L (136-145); TOTAL PROTEIN 6.5 GM/DL (6.4-8.2); TRIGLYCERIDES LEVEL 46 MG/DL (<150)
[2020-12-25 14:11] LABS: HEPATITIS B SURFACE ANTIGEN NEGATIVE (NEGATIVE)
[2020-12-25 14:39] LABS: HEPATITIS C VIRUS ABY INDEX 0.1 INDEX (<0.8)
[2020-12-28 11:08] LABS: HEPATITIS B CORE ANTIBODY IGG Negative (Negative)
== END ==
LOC: M SFHCADAM 10:26
PROVIDERS: ATTEND Family Medicine
DX: E03.9 Hypothyroidism, unspecified (principal); R63.4 Abnormal weight loss; G20 Parkinson's disease; E78.5 Hyperlipidemia, unspecified; M06.09 Rheumatoid arthritis without rheumatoid factor, multiple sites; Z79.899 Other long term (current) drug therapy
CPT/HCPCS: 80053; 80061; 84439; 84443; 85027; 85652; 86140; 86480; 86704; 86803; 87340; G0463

== ENCOUNTER 2021-04-11 10:31 | Inpatient (IN) | payer MEDICARE, OTHER ==
[~2021-04-11] VITALS: Ht 170.2 cm; Wt 72.4 kg
[2021-04-11] MEDS ORDERED: dexameTHASONE 20MG/5ML VIAL (J1100 PER 1MG) IV ONE (11:10)
--- NOTE | 2021-04-11 11:26 | REP ---
INDICATION: DYSPNEA/COUGH. COMPARISON: 07/09/2016. TECHNIQUE: Single portable AP view of the chest was performed. FINDINGS: There is diffuse left lung infiltrate. I suspect mild diffuse right lung infiltrate as well. There is mild cardiomegaly. There is mild calcification of the thoracic aorta. The mediastinal silhouette is otherwise unremarkable. The visualized osseous structures appear intact. IMPRESSION: Diffuse left lung infiltrate. Suspect mild diffuse right lung infiltrate as well. Mild cardiomegaly. <Electronically signed by James Alex > 04/11/21 [id number]
[2021-04-11] MEDS: COMBIVENT RESPIMAT 100-20MCG INHALER 4GM INH SCH (11:49)
[2021-04-11 11:54] LABS: BASO # 0.1 10^3/uL (0.0-0.2); BASO % 0.3 % (0.0-1.0); EOS # 0.1 10^3/uL (0.0-0.5); EOS % 0.6 % (0.0-3.0); HEMATOCRIT 35.4 % (42.0-52.0); HEMOGLOBIN 11.3 g/dl (13.5-17.5); LYMPH # 0.4 10^3/uL (1.5-5.0); LYMPH % 2.2 % (24.0-44.0); MEAN CORPUSCULAR HGB CONC 31.9 g/dl (32.0-36.5); MONO # 1.1 10^3/uL (0.0-0.8); MONO % 5.9 % (2.0-8.0); NEUTROPHILS % 90.1 % (36.0-66.0); PLATELET COUNT, AUTOMATED 324 10^3/uL (150-450); RED BLOOD COUNT 3.89 10^6/uL (4.30-6.10); WHITE BLOOD COUNT 18.9 10^3/uL (4.0-10.0)
[2021-04-11 11:57] LABS: ABG BASE EXCESS 2.2 (-2.0-2.0); ABG HCO3 25.7 MEQ/L (22.0-26.0); ABG O2 SATURATION 94.1 % (95.0-99.0); ABG PARTIAL PRESSURE CO2 35.9 mmHg (35.0-45.0); ABG PARTIAL PRESSURE O2 68.9 mmHg (75.0-100.0); ABG STANDARD HCO3 26.4 MEQ/L (22.0-26.0); ABG TOTAL CO2 26.8 MEQ/L (23.0-31.0); ABG pH (ARTERIAL) 7.472 UNITS (7.350-7.450)
[2021-04-11] MEDS ORDERED: AZITHROMYCIN INJ 500 MG, VIAL MATE ADAPTER 1 EACH in NS 250 ML IV ONE (12:15)
[2021-04-11] MEDS ORDERED: cefTRIAXone SOD 1 GM in D5W MINI-BAG PLUS 50 ML IV ONE (12:15)
[2021-04-11 12:32] LABS: ALBUMIN 2.7 GM/DL (3.2-5.2); ALT/SGPT < 6 U/L (12-78); BILIRUBIN,DIRECT 0.2 MG/DL (0.0-0.2); BILIRUBIN,TOTAL 0.6 MG/DL (0.2-1.0); BLOOD UREA NITROGEN 21 MG/DL (7-18); CALCIUM LEVEL 9.1 MG/DL (8.8-10.2); CARBON DIOXIDE LEVEL 28 MEQ/L (21-32); CHLORIDE LEVEL 103 MEQ/L (98-107); CREATININE FOR GFR 0.92 MG/DL (0.70-1.30); GLOMERULAR FILTRATION RATE > 60.0 (>42); GLUCOSE, FASTING 115 MG/DL (70-100); NT-PRO BNP 3227 PG/ML (<450); POTASSIUM SERUM 4.3 MEQ/L (3.5-5.1); SODIUM LEVEL 137 MEQ/L (136-145); THYROXINE (T4) 7.6 UG/DL (4.5-12.0); TOTAL PROTEIN 6.2 GM/DL (6.4-8.2)
--- NOTE | 2021-04-11 14:01 | HPEPDOC ---
[facility] Medical History & Physical Date of Admission Apr 11, 2021 Date of Service: Apr 11, 2021 History and Physical Chief complaint: Who presented to ER with complaints of shortness of breath History of present illness: Patient is a 75-year-old male with a PMHx of Parkinsons, DLP, RA (Seronegative), Lyme disease (10/2001), Subclinical hypothyroidism, Vasospasm, [place] Palsy, ED, BPH, Chronic back pain 2/2 DDD/DJD/ Moderate-severe spinal stenosis, Vitamin D deficiency who presented to the emergency room with short of breath. Patient reports that he had gone to urgent care earlier today because of shortness of breath for 3 day duration associated with productive cough. While at the urgent care. Patient was advised to go to the ER for further evaluation. Patient denies any chest pain or palpitations. Upon arrival to emergency room, patient was placed on 2 L nasal cannula as he was saturating at 88% on room air. Patient denies any nausea, vomiting, abdominal pain or diarrhea. Does report constipation. I bowel movement was yesterday. Denies any urinary discomfort. Patient had reported fevers at home, however, is unable to remember the temperature. Past Medical History: Parkinsons DLP RA (Seronegative) Lyme disease (10/2001) Subclinical hypothyroidism Vasospasm [place] Palsy ED BPH Chronic back pain 2/2 DDD/DJD/ Moderate-severe spinal stenosis Vitamin D deficiency Past Surgical History: Left wrist fracture 2 Colonoscopy 2018. History of hemorrhoids TURP 2013 Left total knee arthroplasty 2017 Allergies: See below Medications: See below Family History: - Reviewed and noncontributory Social History: - Denies the use of illicit drugs; reports social alcohol use; reports that he quit smoking in the past - Denies recent travel or sick contacts - Patient reports that he has received 3 doses affect COVID19 vaccine - Lives with Review of Systems: 10 point review of systems complete, all negative otherwise stated in HPI Physical exam: - Vitals: BP [131/56], HR [55], RR [20], Sat [96%RA], Temp [98.2F] - General: Lying in bed, Speaking in full sentences, AAOx3 - HEENT: NC, AT, PERRLA - CVS: RRR, +S1S2, - Murmurs / rubs / gallops - Lungs: Fair air entry bilaterally, No appreciable wheezing / rales / rhonchi - Abdomen: Soft, Non-distended, Non-tender - Extremities: No lower extremity edema, No calf tenderness - Neuro: No focal motor or sensory deficit, Tremors noted - Skin: No visible rashes Labs: See below Imaging: CXR 04/11: Diffuse left lung infiltrate. Suspect mild diffuse right lung infiltrate as well. Mild cardiomegaly. EKG: See below Assessment and Plan: Hypoxic respiratory failure - likely 2/2 bacterial PNA - Who presented to ER with complaints of shortness of breath and productive cough for 3 days - Patient is currently hemodynamically stable and afebrile - He is currently requiring 2 L nasal cannula oxygen - Leukocytosis with neutrophil predominance; no lactic acidosis - Imaging noted above - Will check sputum cultures / blood cultures / procalcitonin - Will start Ceftriaxone / Doxycycline (Day #1) COVID19 exposure - Patient was exposed to a positive family member from [place] - Patient has received 3 doses of the COVID19 vaccine - Respiratory panel 04/11: Negative in the ER - c/w Supportive care with Mucinex / Acapella / Incentive spirometer Normocytic anemia - Hg relatively stable - No evidence of bleed Parkinsons - c/w Amantadine, Levodopa-Carbidopa, Pramipexole - Will start PT / OT DLP RA - Seronegative - c/w Sulfasalazine Lyme disease (10/2001) Subclinical hypothyroidism - TSH / Free T4 are within normal limits Vasospasm - c/w Propranolol Hx of [place] Palsy Erectile dysfunction BPH Chronic back pain 2/2 DDD/DJD/ Moderate-severe spinal stenosis - c/w Tylenol PRN Vitamin D deficiency DVT prophylaxis - Will start Heparin Code status: - Full code Vital Signs Vital Signs Date Time Temp Pulse Resp B/P (MAP) Pulse Ox O2 Delivery O2 Flow Rate FiO2 04/11/21 10:31 98.2 55 20 131/56 (81) 96 Room Air Laboratory Data Labs 24H Laboratory Tests 2 04/11/21 11:08: Immature Granulocyte % (Auto) 0.9, Neutrophils (%) (Auto) 90.1H, Lymphocytes (%) (Auto) 2.2L, Monocytes (%) (Auto) 5.9, Eosinophils (%) (Auto) 0.6, Basophils (%) (Auto) 0.3, Neutrophils # (Auto) 17.0H, Lymphocytes # (Auto) 0.4L, Monocytes # (Auto) 1.1H, Eosinophils # (Auto) 0.1, Basophils # (Auto) 0.1, Nucleated Red Blood Cells % (auto) 0.0, Anion Gap 6L, Glomerular Filtration Rate > 60.0, Lactic Acid Level 2.0, Calcium Level 9.1, Total Bilirubin 0.6, Direct Bilirubin 0.2, Aspartate Amino Transf (AST/SGOT) 13, Alanine Aminotransferase (ALT/SGPT) < 6L, Alkaline Phosphatase 132H, UI-Xgb-K-Type Natriuretic Peptide 3227H, Total Protein 6.2L, Albumin 2.7L, Albumin/Globulin Ratio 0.8, Thyroid Stimulating Hormone (TSH) 1.400, Thyroxine (T4) 7.6 04/11/21 11:41: Blood Gas Bicarbonate Standard 26.4H, Arterial Blood pH 7.472H, Arterial Blood Partial Pressure CO2 35.9, Arterial Blood Partial Pressure O2 68.9L, Arterial Blood Total CO2 26.8, Arterial Blood HCO3 25.7, Arterial Blood Base Excess 2.2H, Arterial Blood Oxygen Saturation 94.1L 04/11/21 13:04: POC Troponin I (Misc) 0.00 CBC/BMP Laboratory Tests 04/11/21 11:08 Microbiology Microbiology 04/11/21 Respiratory Virus Panel (PCR) (MARTINA) - Final, Complete 04/11/21 Blood Culture, Received Pending 04/11/21 Blood Culture, Received Pending Home Medications Scheduled Amantadine HCl (Amantadine) 100 Mg Tablet, 100 MG PO TID 0800, 1200, AND 1700 Carbidopa/Levodopa (Carbidopa-Levodopa 25-100 Tab) 1 Tab Tab, 2 TAB PO TID 0800, 1200, AND 1700 Folic Acid (Folic Acid) 1 Mg Tab, 2 MG PO DAILY AT 1200 Pramipexole Di-HCl (Pramipexole Dihydrochloride) 1 Mg Tablet, 1 MG PO TID 0800, 1200, AND 1700 Propranolol HCl (Propranolol HCl) 10 Mg Tab, 10 MG PO BID Selegiline HCl (Selegiline HCl) 5 Mg Cap, 5 MG PO DAILY Sulfasalazine (Sulfasalazine Dr) 500 Mg Tabec, 500 MG PO QPM AT 1700 Sulfasalazine (Sulfasalazine Dr) 500 Mg Tabec, 1,000 MG PO QHS AT 2000 Scheduled PRN Ibuprofen (Ibuprofen) 800 Mg Tablet, 800 MG PO DAILY PRN for PAIN Sildenafil Citrate (Sildenafil Citrate) 100 Mg Tablet, 100 MG PO ASDIRECTED PRN for ERECTILE DYSFUNCTION Allergies Coded Allergies: No Known Drug Allergies (Verified Allergy, Unknown, 08/20/18) LYUBOV PABLO MD Apr 11, 2021 14:01
[2021-04-11] MEDS ORDERED: HOME MED LIST COMPLETE! XX SCH (14:20)
--- NOTE | 2021-04-11 14:44 | REP ---
INDICATION: SOB/Cough COMPARISON: None TECHNIQUE: Axial noncontrast images from the thoracic inlet to the upper abdomen with coronal and sagittal reformations. This CT examination was performed using the following dose reduction techniques: Automated exposure control, adjustment of mA and/or kv according to the patient's size, and use of iterative reconstruction technique. FINDINGS: Diffuse chronic emphysematous and interstitial changes are appreciated with superimposed bilateral upper lobe and left lower lobe early ground-glass opacities as well as mild bibasilar atelectasis and small pleural reactions most concerning for multifocal pneumonia. Tracheobronchial tree is patent and there is suggestion for reactive mediastinal adenopathy. The mediastinum demonstrates atherosclerotic changes to the thoracic aorta and coronary arteries without aortic aneurysm. Mild cardiomegaly suggested without pericardial effusion. Musculoskeletal structures demonstrate degenerative changes without acute osseous abnormality. IMPRESSION: Bilateral early ground-glass opacities along with small elements of basilar atelectasis and pleural reactions most compatible with acute multifocal pneumonia. COVID-19 pulmonary disease is within the differential diagnosis. Less likely early CHF cannot be excluded <Electronically signed by Ari Shaw > 04/11/21 [id number]
--- NOTE | 2021-04-11 18:16 | ECGEPIP ---
[facility] [place] - ED Test Date: 2021-04-11 Pat Name: GENARO MARTINEZ Department: Room: - Gender: Male [facility]: ANTHONY : 1945 Requested By: Fadi Bobo Order Number: [id number] Reading MD: Fadi Bobo Measurements Intervals Pauline Rate: 53 P: 37 SC: 176 QRS: -47 QRSD: 104 T: -1 QT: 446 QTc: 418 Interpretive Statements Sinus bradycardia LAD Possible Left atrial enlargement Incomplete right bundle branch block Left anterior fascicular block Left ventricular hypertrophy ( R in aVL , Kel product ) Nonspecific ST T wave changes inferior leads - nonspecific vs ischemia CLINICAL CORRELATION ADVISED cw 09/13/[address] T wave changes inferior leads Electronically Signed on 04-11-2021 18:16:09 EST by Fadi Bobo
[2021-04-11] MEDS: AMANTADINE 100MG TABLET PO SCH (18:21)
[2021-04-11] MEDS: SINEMET 25-100 MG TAB PO SCH (18:21)
[2021-04-11 20:00] VITALS: BP 140/66
[2021-04-11] MEDS: guaiFENesin ER 600 MG TAB PO SCH (22:09)
[2021-04-11] MEDS: DOXYCYCLINE HYCLATE 100 MG in D5W MINI-BAG PLUS 100 ML IV SCH (22:09)
[2021-04-11] MEDS: sulfaSALAzine 500 MG TABEC PO SCH (22:09)
[2021-04-11] MEDS: HEPARIN SOD (PORCINE) 5000UNITS/ML 1ML VIAL/SYRINGE SC SCH (22:12)
[2021-04-11] MEDS: PROPRANOLOL 10 MG TAB PO SCH (22:13)
[2021-04-12] VITALS (9 sets, daily range): BP systolic 101–128; BP diastolic 53–68
[2021-04-12 05:35] LABS: BASO % 0.2 % (0.0-1.0); HEMOGLOBIN 10.6 g/dl (13.5-17.5); LYMPH % 7.2 % (24.0-44.0); MEAN CORPUSCULAR HEMOGLOBIN 28.6 pg (27.0-33.0); MEAN CORPUSCULAR HGB CONC 31.2 g/dl (32.0-36.5); MEAN CORPUSCULAR VOLUME 91.9 fl (80.0-96.0); MONO # 0.7 10^3/uL (0.0-0.8); MONO % 4.9 % (2.0-8.0); NEUTROPHILS # 12.4 10^3/uL (1.5-8.5); NEUTROPHILS % 86.9 % (36.0-66.0); PLATELET COUNT, AUTOMATED 327 10^3/uL (150-450); WHITE BLOOD COUNT 14.2 10^3/uL (4.0-10.0)
[2021-04-12 05:53] LABS: BLOOD UREA NITROGEN 19 MG/DL (7-18); CALCIUM LEVEL 8.6 MG/DL (8.8-10.2); CARBON DIOXIDE LEVEL 27 MEQ/L (21-32); CHLORIDE LEVEL 105 MEQ/L (98-107); GLOMERULAR FILTRATION RATE > 60.0 (>42); GLUCOSE, FASTING 134 MG/DL (70-100); MAGNESIUM LEVEL 2.3 MG/DL (1.8-2.4); POTASSIUM SERUM 4.2 MEQ/L (3.5-5.1); SODIUM LEVEL 138 MEQ/L (136-145)
[2021-04-12] MEDS: HEPARIN SOD (PORCINE) 5000UNITS/ML 1ML VIAL/SYRINGE SC SCH ×3 (06:01→21:37)
[2021-04-12] MEDS: SINEMET 25-100 MG TAB PO SCH ×3 (08:37→18:17)
[2021-04-12] MEDS: DOXYCYCLINE HYCLATE 100 MG in D5W MINI-BAG PLUS 100 ML IV SCH ×2 (08:37→20:06)
[2021-04-12] MEDS: AMANTADINE 100MG TABLET PO SCH ×3 (08:37→18:17)
[2021-04-12] MEDS: PROPRANOLOL 10 MG TAB PO SCH (08:38)
[2021-04-12] MEDS: guaiFENesin ER 600 MG TAB PO SCH ×2 (08:38→20:07)
[2021-04-12] MEDS: cefTRIAXone SOD 1 GM in D5W MINI-BAG PLUS 50 ML IV SCH (12:59)
--- NOTE | 2021-04-12 13:23 | IPNPDOC ---
Text Note Date of Service The patient was seen on 04/12/21. NOTE Subjective: Patient is a 75-year-old male with a PMHx of Parkinsons, DLP, RA (Seronegative), Lyme disease (10/2001), Subclinical hypothyroidism, Vasospasm, [place] Palsy, ED, BPH, Chronic back pain 2/2 DDD/DJD/ Moderate-severe spinal stenosis, Vitamin D deficiency who presented to the emergency room with short of breath. Patient reports that he had gone to urgent care earlier today because of shortness of breath for 3 day duration associated with productive cough. While at the urgent care, patient was advised to go to the ER for further evaluation. Patient was admitted to the hospitalist service for further evaluation and treatment. Patient was seen and examined at the bedside. Patient reports that his breathing is doing better, still reports a mild cough. Denies any chest pain or palpitations. Has not experience any nausea, vomiting, abdominal pain or diarrhea. Patient denies any urinary discomfort. He will be working with physical therapy today. Objective: Vitals (See below) General: Lying in bed, appears comfortable, AAOx3 HEENT: NC, AT CVS: +S1S2 Lungs: Fair air entry b/l, no evidence of wheezing, rales or rhonchi Abdomen: Soft, nondistended and nontender Extremities: no evidence of edema, - Calf tenderness Imaging: CXR 04/11: Diffuse left lung infiltrate. Suspect mild diffuse right lung infiltrate as well. Mild cardiomegaly. Chest CT 04/11: Bilateral early ground-glass opacities along with small elements of basilar atelectasis and pleural reactions most compatible with acute multifocal pneumonia. COVID-19 pulmonary disease is within the differential diagnosis. Less likely early CHF cannot be excluded Assessment and plan: Hypoxic respiratory failure - likely 2/2 bacterial PNA - Presented to ER with SOB / productive cough - Patient is currently hemodynamically stable and afebrile - Saturating well on 2L NC - Leukocytosis improving; No lactic acidosis - Blood cultures 04/11: No growth at 24 hours - Respiratory panel 04/11: Negative - Sputum culture - Imaging noted above - c/w Ceftriaxone / Doxycycline (Day #2) COVID19 exposure - Patient was exposed to a positive family member from [place] - Patient has received 3 doses of the COVID19 vaccine - Respiratory panel 04/11: Negative in the ER - c/w Supportive care with Mucinex / Acapella / Incentive spirometer Normocytic anemia - Hg relatively stable - No evidence of bleed Parkinsons - c/w Amantadine, Levodopa-Carbidopa - Will start PT DLP RA - Seronegative - c/w Sulfasalazine Lyme disease (10/2001) Subclinical hypothyroidism - TSH / Free T4 are within normal limits Vasospasm - c/w Propranolol Hx of [place] Palsy Erectile dysfunction BPH Chronic back pain 2/2 DDD/DJD/ Moderate-severe spinal stenosis - c/w Tylenol PRN Vitamin D deficiency DVT prophylaxis - c/w Heparin Code status: - Full code VS,Fishbone, I+O VS, Fishbone, I+O Laboratory Tests 04/12/21 05:03 Vital Signs Date Time Temp Pulse Resp B/P (MAP) Pulse Ox O2 Delivery O2 Flow Rate FiO2 04/12/21 12:00 2.0 04/12/21 08:38 72 111/58 04/12/21 08:10 97.6 16 98 Nasal Cannula I&O- Last 24 Hours up to 6 AM 04/12/21 05:59 Intake Total 475 ml Output Total 100 ml Balance 375 ml LYUBOV PABLO MD Apr 12, 2021 13:23
[2021-04-12] MEDS: sulfaSALAzine 500 MG TABEC PO SCH ×2 (18:17→20:06)
[2021-04-13] VITALS: BP 134/69
[2021-04-13 04:00] VITALS: BP 111/67
[2021-04-13] MEDS: HEPARIN SOD (PORCINE) 5000UNITS/ML 1ML VIAL/SYRINGE SC SCH (05:03)
[2021-04-13 05:18] LABS: RED BLOOD COUNT 3.79 10^6/uL (4.30-6.10)
[2021-04-13 05:19] LABS: BASO % 0.4 % (0.0-1.0); EOS # 0.2 10^3/uL (0.0-0.5); EOS % 2.4 % (0.0-3.0); HEMATOCRIT 35.1 % (42.0-52.0); HEMOGLOBIN 10.9 g/dl (13.5-17.5); LYMPH # 1.6 10^3/uL (1.5-5.0); LYMPH % 15.7 % (24.0-44.0); MEAN CORPUSCULAR HEMOGLOBIN 28.8 pg (27.0-33.0); MEAN CORPUSCULAR HGB CONC 31.1 g/dl (32.0-36.5); MEAN CORPUSCULAR VOLUME 92.6 fl (80.0-96.0); MONO % 9.7 % (2.0-8.0); NEUTROPHILS # 7.1 10^3/uL (1.5-8.5); NEUTROPHILS % 70.7 % (36.0-66.0); PLATELET COUNT, AUTOMATED 318 10^3/uL (150-450)
[2021-04-13] MEDS ORDERED: MIRALAX *UNIT DOSE* 17GM PACKET PO PRN (05:25)
[2021-04-13 05:41] LABS: BLOOD UREA NITROGEN 24 MG/DL (7-18); CALCIUM LEVEL 8.6 MG/DL (8.8-10.2); CARBON DIOXIDE LEVEL 28 MEQ/L (21-32); CHLORIDE LEVEL 104 MEQ/L (98-107); GLOMERULAR FILTRATION RATE > 60.0 (>42); GLUCOSE, FASTING 97 MG/DL (70-100); POTASSIUM SERUM 4.3 MEQ/L (3.5-5.1); SODIUM LEVEL 137 MEQ/L (136-145)
[2021-04-13 08:00] VITALS: BP 145/70
[2021-04-13] MEDS: SINEMET 25-100 MG TAB PO SCH ×2 (08:49→12:39)
[2021-04-13] MEDS: DOXYCYCLINE HYCLATE 100 MG in D5W MINI-BAG PLUS 100 ML IV SCH (08:49)
[2021-04-13] MEDS: AMANTADINE 100MG TABLET PO SCH ×2 (08:49→12:39)
[2021-04-13] MEDS: guaiFENesin ER 600 MG TAB PO SCH (08:49)
[2021-04-13] MEDS ORDERED: DOXY-350 PO ×2 (11:43→12:10)
[2021-04-13] MEDS ORDERED: MUCI600T31 PO ×2 (11:43→12:10)
[2021-04-13] MEDS ORDERED: CEFD1CAP8 PO ×2 (11:43→12:10)
[2021-04-13 12:00] VITALS: BP 110/54
[2021-04-13] MEDS: cefTRIAXone SOD 1 GM in D5W MINI-BAG PLUS 50 ML IV SCH (12:40)
--- NOTE | 2021-04-13 15:23 | DS.PDOC ---
Discharge Summary General Date of Admission Apr 11, 2021 at 13:31 Date of Discharge 04/13/2021 Discharge Summary PROCEDURES PERFORMED DURING STAY: [None]. ADMITTING DIAGNOSES / DISCHARGE DIAGNOSES: Hypoxic respiratory failure - likely 2/2 bacterial PNA COVID19 exposure Normocytic anemia Parkinsons DLP RA Lyme disease (10/2001) Subclinical hypothyroidism Vasospasm Hx of [place] Palsy Erectile dysfunction BPH Chronic back pain 2/2 DDD/DJD/ Moderate-severe spinal stenosis Vitamin D deficiency DVT prophylaxis COMPLICATIONS/CHIEF COMPLAINT: Shortness Of Breath HISTORY OF PRESENT ILLNESS: Patient is a 75-year-old male with a PMHx of Parkinsons, DLP, RA (Seronegative), Lyme disease (10/2001), Subclinical hypothyroidism, Vasospasm, [place] Palsy, ED, BPH, Chronic back pain 2/2 DDD/DJD/ Moderate-severe spinal stenosis, Vitamin D deficiency who presented to the emergency room with short of breath. Patient reports that he had gone to urgent care earlier today because of shortness of breath for 3 day duration associated with productive cough. While at the urgent care, patient was advised to go to the ER for further evaluation. Patient was admitted to the hospitalist service for further evaluation and treatment. Patient was seen and examined at the bedside. Patient reported that his breathing is doing better. Has been using his Acapella and incentive spirometer reports improvement in his productive cough. Patient denies any chest pain or palpitations. Has not experience any nausea, vomiting, abdominal pain, diarrhea, or discomfort with urination. Patient has worked with physical therapy and has been cleared for discharge home. He has been titrated off oxygen as tolerated room air. HOSPITAL COURSE: Hypoxic respiratory failure - likely 2/2 bacterial PNA - Patient has reported improvement of his breathing - Remains hemodynamically stable and afebrile / has been transitioned back to room air - s/p Leukocytosis improving; No lactic acidosis - Blood cultures 04/11: No growth at 48 hours - Respiratory panel 04/11: Negative - Imaging noted above - Will start Cefdinir / Doxycycline PO on discharge; Will DC Ceftriaxone / Doxycycline IV (Antibiotic day #3) - will complete antibiotic course as an outpatient - Will have outpatient follow-up with primary care provider within the next 7 days COVID19 exposure - Patient was exposed to a positive family member from [place] - Patient has received 3 doses of the COVID19 vaccine - Respiratory panel 04/11: Negative in the ER - c/w Supportive care with Mucinex / Acapella / Incentive spirometer Normocytic anemia - Hg relatively stable - No evidence of bleed Parkinsons - c/w Amantadine, Levodopa-Carbidopa - Patient has worked with PT and has been cleared for DC home with services DLP RA - Seronegative - c/w Sulfasalazine Lyme disease (10/2001) Subclinical hypothyroidism - TSH / Free T4 are within normal limits Vasospasm - c/w Propranolol Hx of [place] Palsy Erectile dysfunction BPH Chronic back pain 2/2 DDD/DJD/ Moderate-severe spinal stenosis - c/w Tylenol PRN Vitamin D deficiency DVT prophylaxis - c/w Heparin while inpatient DISCHARGE MEDICATIONS: Please see below. ALLERGIES: Please see below. PHYSICAL EXAMINATION ON DISCHARGE: Vitals (See below) General: Lying in bed, appears comfortable, AAOx3 HEENT: NC, AT CVS: +S1S2 Lungs: Fair air entry b/l, no evidence of wheezing, rales or rhonchi Abdomen: Soft, nondistended and nontender Extremities: No evidence of edema, - Calf tenderness LABORATORY DATA: Please see below. IMAGING: CXR 04/11: Diffuse left lung infiltrate. Suspect mild diffuse right lung infiltrate as well. Mild cardiomegaly. Chest CT 04/11: Bilateral early ground-glass opacities along with small elements of basilar atelectasis and pleural reactions most compatible with acute multifocal pneumonia. COVID-19 pulmonary disease is within the differential diagnosis. Less likely early CHF cannot be excluded ACTIVITY: [As tolerated]. DISCHARGE PLAN: Follow-up with primary care provider within the next 7 days Remain compliant with treatment plan and medications Return to the ER if you experience any problems DISPOSITION: Home Health Service. DISCHARGE CONDITION: [Stable]. TIME SPENT ON DISCHARGE: 35 minutes. Vital Signs/I&Os Vital Signs Date Time Temp Pulse Resp B/P (MAP) Pulse Ox O2 Delivery O2 Flow Rate FiO2 04/13/21 12:00 97.8 75 19 110/54 (72) 92 Room Air 04/13/21 08:00 2.0 I&O- Last 24 Hours up to 6 AM 04/13/21 06:00 Intake Total 610 ml Output Total 525 ml Balance 85 ml Laboratory Data Labs 24H Laboratory Tests 2 04/13/21 04:57: Immature Granulocyte % (Auto) 1.1, Neutrophils (%) (Auto) 70.7H, Lymphocytes (%) (Auto) 15.7L, Monocytes (%) (Auto) 9.7H, Eosinophils (%) (Auto) 2.4, Basophils (%) (Auto) 0.4, Neutrophils # (Auto) 7.1, Lymphocytes # (Auto) 1.6, Monocytes # (Auto) 1.0H, Eosinophils # (Auto) 0.2, Basophils # (Auto) 0.0, Nucleated Red Blood Cells % (auto) 0.0, Anion Gap 5L, Glomerular Filtration Rate > 60.0, Calcium Level 8.6L, Magnesium Level 2.0 CBC/BMP Laboratory Tests 04/13/21 04:57 Microbiology Microbiology 04/11/21 Respiratory Virus Panel (PCR) ([facility]) - Final, Complete 04/11/21 Blood Culture - Preliminary, Resulted No Growth after 48 hours. All Specime... 04/11/21 Blood Culture - Preliminary, Resulted No Growth after 48 hours. All Specime... Discharge Medications Scheduled Amantadine HCl (Amantadine) 100 Mg Tablet, 100 MG PO TID, (Reported) 0800, 1200, AND 1700 Carbidopa/Levodopa (Carbidopa-Levodopa 25-100 Tab) 1 Tab Tab, 2 TAB PO TID, (Reported) 0800, 1200, AND 1700 Cefdinir (Cefdinir) 300 Mg Capsule, 1 CAP PO BID . Doxycycline Monohydrate (Doxycycline) 100 Mg Capsule, 1 CAP PO BID . Guaifenesin (Mucinex) 600 Mg Tab.er.12h, 600 MG PO BID . Selegiline HCl (Selegiline HCl) 5 Mg Cap, 5 MG PO DAILY, (Reported) Sulfasalazine (Sulfasalazine Dr) 500 Mg Tabec, 1,000 MG PO BID, (Reported) @ 1700 AND QHS Scheduled PRN Sildenafil Citrate (Sildenafil Citrate) 100 Mg Tablet, 100 MG PO ASDIRECTED PRN for ERECTILE DYSFUNCTION, (Reported) Allergies Coded Allergies: No Known Drug Allergies (Verified Allergy, Unknown, 08/20/18) LYUBOV PABLO MD Apr 13, 2021 15:23
== END 2021-04-13 14:16 | disposition home health service (06) | DRG 193 ==
LOC: M ED 10:31 → M ED INP 13:31 → M PCU 19:56
PROVIDERS: ADMIT Internal Medicine; ATTEND Internal Medicine
DX: J18.9 Pneumonia, unspecified organism (principal); J96.02 Acute respiratory failure with hypercapnia; G20 Parkinson's disease; E78.5 Hyperlipidemia, unspecified; M06.9 Rheumatoid arthritis, unspecified; E03.9 Hypothyroidism, unspecified; G51.0 Bell's palsy; N40.0 Benign prostatic hyperplasia without lower urinary tract symptoms; M48.00 Spinal stenosis, site unspecified; E55.9 Vitamin D deficiency, unspecified; I73.9 Peripheral vascular disease, unspecified; Z20.822 Contact with and (suspected) exposure to COVID-19; D64.9 Anemia, unspecified; Z79.899 Other long term (current) drug therapy

== ENCOUNTER → 2021-04-30 | Outpatient (REF) | payer MEDICARE, OTHER ==
[~2021-04-30] MED LIST changes: +CEFD300C41 PO; +DOXY-350 PO; +MUCI600T31 PO
[2021-04-30 12:48] LABS: BASO % 0.5 % (0.0-1.0); EOS # 0.1 10^3/uL (0.0-0.5); EOS % 1.8 % (0.0-3.0); HEMATOCRIT 39.6 % (42.0-52.0); HEMOGLOBIN 12.2 g/dl (13.5-17.5); LYMPH # 0.9 10^3/uL (1.5-5.0); LYMPH % 15.2 % (24.0-44.0); MEAN CORPUSCULAR HEMOGLOBIN 28.4 pg (27.0-33.0); MEAN CORPUSCULAR HGB CONC 30.8 g/dl (32.0-36.5); MEAN CORPUSCULAR VOLUME 92.1 fl (80.0-96.0); MONO # 0.6 10^3/uL (0.0-0.8); MONO % 10.7 % (2.0-8.0); NEUTROPHILS % 71.4 % (36.0-66.0); PLATELET COUNT, AUTOMATED 354 10^3/uL (150-450); WHITE BLOOD COUNT 5.6 10^3/uL (4.0-10.0)
[2021-04-30 13:21] LABS: ERYTHROCYTE SEDIMENTATION RATE 52 mm/hr (0-20)
[2021-04-30 14:13] LABS: ALBUMIN 3.3 GM/DL (3.2-5.2); ALT/SGPT < 6 U/L (12-78); BILIRUBIN,TOTAL 0.4 MG/DL (0.2-1.0); BLOOD UREA NITROGEN 20 MG/DL (7-18); C REACTIVE PROTEIN QUANTITATIV 1.41 MG/DL (0.00-0.30); CALCIUM LEVEL 9.3 MG/DL (8.8-10.2); CARBON DIOXIDE LEVEL 28 MEQ/L (21-32); CHLORIDE LEVEL 104 MEQ/L (98-107); CREATININE FOR GFR 0.99 MG/DL (0.70-1.30); GLOMERULAR FILTRATION RATE > 60.0 (>42); GLUCOSE, FASTING 90 MG/DL (70-100); POTASSIUM SERUM 4.4 MEQ/L (3.5-5.1); SODIUM LEVEL 138 MEQ/L (136-145); TOTAL PROTEIN 7.3 GM/DL (6.4-8.2)
[2021-04-30 14:26] LABS: HEPATITIS B SURFACE ANTIGEN NEGATIVE (NEGATIVE)
[2021-04-30 14:54] LABS: HEPATITIS C VIRUS ABY INDEX < 0.0 INDEX (<0.8)
== END ==
LOC: M SFHCRHEU 10:51
PROVIDERS: ATTEND Internal Medicine Rheumatology
DX: M06.09 Rheumatoid arthritis without rheumatoid factor, multiple sites (principal); M15.9 Polyosteoarthritis, unspecified; Z79.899 Other long term (current) drug therapy
CPT/HCPCS: 80053; 85025; 85652; 86140; 86480; 86704; 86803; 87340; G0463

== ENCOUNTER → 2021-05-01 | Outpatient (CLI) | payer MEDICARE, OTHER | LOC: M ADAMS 15:35 | PROVIDERS: ATTEND Family Medicine | DX: J18.9 Pneumonia, unspecified organism (principal); M06.9 Rheumatoid arthritis, unspecified; I51.7 Cardiomegaly; M47.812 Spondylosis without myelopathy or radiculopathy, cervical region | CPT/HCPCS: 71046; 72050; G0463 ==

== ENCOUNTER → 2021-05-13 | Outpatient (CLI) | payer MEDICARE, BC, OTHER | LOC: M LABSMTC 09:35 | PROVIDERS: ATTEND Anesthesiology | DX: Z01.812 Encounter for preprocedural laboratory examination (principal); Z20.822 Contact with and (suspected) exposure to COVID-19 ==

== ENCOUNTER 2021-05-17 11:31 | Day surgery (SDC) | payer MEDICARE, BC, OTHER ==
[~2021-05-17] VITALS: Ht 172.7 cm; Wt 72.6 kg
[~2021-05-17 11:31] MED LIST changes: +ACETAMINOPHEN 1000MG 100ML IV BTL (OFIRMEV) (J0131 PER 10MG) As Ordered ONE; +KETOROLAC 60MG 2ML VIAL As Ordered ONE; +LIDOCAINE 2% 100MG/5ML SDV (FOR ANES.) As Ordered ONE; +LR 1,000 ML IV SCH; +MIDAZOLAM INJ 2MG/2ML VIAL (J2250 PER 1MG) As Ordered ONE; +ONDANSETRON 4MG/2ML VIAL As Ordered ONE; +ROCURONIUM BROMIDE 50 MG/5 ML VIAL As Ordered ONE; +SUGAMMADEX SODIUM 500 MG/5 ML VIAL (BRIDION) As Ordered ONE; +ceFAZolin SOD 2 GM in IV 1 EA IV SCH; +dexameTHASONE 4 MG/ML 1ML VIAL (J1100 PER 1MG) As Ordered ONE; +fentaNYL 250 MCG/5 ML INJECTION As Ordered ONE; +propofoL 200 MG/20 ML VIAL As Ordered ONE
[2021-05-17] MEDS ORDERED: BUPIVACAINE/EPIN 0.5% 30 ML VIAL As Ordered ONE (11:47)
[2021-05-17] MEDS ORDERED: ceFAZolin SOD 2 GM in IV 1 EA IV ONE (12:30)
[2021-05-17] MEDS ORDERED: ROCURONIUM BROMIDE 50 MG/5 ML VIAL As Ordered ONE (12:57)
[2021-05-17] MEDS ORDERED: ONDANSETRON 4MG/2ML VIAL IV PRN (14:20)
[2021-05-17] MEDS ORDERED: fentaNYL 100 MCG/2 ML INJECTION IV PRN (14:20)
[2021-05-17] MEDS ORDERED: LR 1,000 ML IV SCH (14:20)
[2021-05-17] MEDS ORDERED: oxyCODONE 5MG TAB PO PRN (14:20)
[2021-05-17] MEDS ORDERED: NS 1,000 ML IV SCH (14:30)
[2021-05-17 16:25] VITALS: BP 173/80
== END 2021-05-17 16:32 | disposition home or self-care (01) ==
LOC: M SDC 11:31
PROVIDERS: ATTEND Surgery
DX: K40.90 Unilateral inguinal hernia, without obstruction or gangrene, not specified as recurrent (principal); M06.09 Rheumatoid arthritis without rheumatoid factor, multiple sites; R63.4 Abnormal weight loss; G20 Parkinson's disease; E03.9 Hypothyroidism, unspecified; E55.9 Vitamin D deficiency, unspecified; E78.5 Hyperlipidemia, unspecified; Z79.899 Other long term (current) drug therapy; Z96.652 Presence of left artificial knee joint
CPT/HCPCS: 49650; C1781; J0131; J0690; J1100; J1885; J2250; J2405; J3010; S2900

== ENCOUNTER 2021-07-30 08:56 | Outpatient (CLI) | payer MEDICARE, BC, OTHER ==
[2021-07-30] VITALS (8 sets, daily range): BP systolic 138–165; BP diastolic 60–74
[~2021-07-30] VITALS: Ht 175.3 cm; Wt 72.8 kg
[~2021-07-30 08:56] MED LIST changes: -ACETAMINOPHEN 1000MG 100ML IV BTL (OFIRMEV) (J0131 PER 10MG) As Ordered ONE; +ALBUTEROL SULFATE 2.5 MG/0.5 ML INH NEB SOLN INH PRN; +EPINEPHrine INJ 1 MG/ML 1ML AMP IM PRN; -KETOROLAC 60MG 2ML VIAL As Ordered ONE; -LIDOCAINE 2% 100MG/5ML SDV (FOR ANES.) As Ordered ONE; -LR 1,000 ML IV SCH; -MIDAZOLAM INJ 2MG/2ML VIAL (J2250 PER 1MG) As Ordered ONE; -ONDANSETRON 4MG/2ML VIAL As Ordered ONE; -ROCURONIUM BROMIDE 50 MG/5 ML VIAL As Ordered ONE; -SUGAMMADEX SODIUM 500 MG/5 ML VIAL (BRIDION) As Ordered ONE; +UNRESOLVED CLARIFICATION ENTRY XX SCH; -ceFAZolin SOD 2 GM in IV 1 EA IV SCH; -dexameTHASONE 4 MG/ML 1ML VIAL (J1100 PER 1MG) As Ordered ONE; +diphenhydrAMINE 50MG/ML VIAL (J1200) IV PRN; -fentaNYL 250 MCG/5 ML INJECTION As Ordered ONE; +methylPREDNISolone 125MG 2ML VIAL IV PRN; -propofoL 200 MG/20 ML VIAL As Ordered ONE
[2021-07-30] MEDS ORDERED: diphenhydrAMINE 50MG CAP PO ONE (09:00)
[2021-07-30] MEDS ORDERED: NS IV ONE (09:00)
[2021-07-30] MEDS ORDERED: riTUXimab 1,000 MG in NS 900 ML IV ONE (09:00)
[2021-07-30] MEDS ORDERED: ACETAMINOPHEN 650MG ER TAB (TYLENOL ARTHRITIS) PO ONE (09:00)
[2021-07-30] MEDS ORDERED: methylPREDNISolone 125MG 2ML VIAL IV ONE (09:00)
[2021-07-30] MEDS ORDERED: RITUXIMAB IV ONE (09:00)
== END 2021-07-30 14:30 | disposition home or self-care (01) ==
LOC: M INFU 08:56
PROVIDERS: ATTEND Internal Medicine Rheumatology
DX: M06.09 Rheumatoid arthritis without rheumatoid factor, multiple sites (principal)
CPT/HCPCS: 96375; 96413; 96415; J2930; J9312

== ENCOUNTER 2021-08-13 08:04 | Outpatient (CLI) | payer MEDICARE, BC, OTHER ==
[~2021-08-13] VITALS: Ht 175.3 cm; Wt 72.8 kg
[~2021-08-13 08:04] MED LIST changes: +ACETAMINOPHEN 650MG ER TAB (TYLENOL ARTHRITIS) PO ONE; +ACETAMINOPHEN TAB 650MG DOSE (2X325MG) PO ONE; -UNRESOLVED CLARIFICATION ENTRY XX SCH; +diphenhydrAMINE 50MG CAP PO ONE; +methylPREDNISolone 125MG 2ML VIAL IV ONE; +riTUXimab (INITIAL INFUSION) IV ONE; +riTUXimab 1,000 MG in NS 900 ML IV ONE
[2021-08-13 08:05] VITALS: BP 128/59
[2021-08-13 09:30] VITALS: BP 143/70
[2021-08-13 10:00] VITALS: BP 122/64
[2021-08-13 11:00] VITALS: BP 126/89
[2021-08-13 12:12] VITALS: BP 131/92
== END 2021-08-13 12:30 | disposition home or self-care (01) ==
LOC: M INFU 08:04
PROVIDERS: ATTEND Internal Medicine Rheumatology
DX: M06.9 Rheumatoid arthritis, unspecified (principal)
CPT/HCPCS: 96366; 96413; 96415; J2930; J9312

== ENCOUNTER → 2021-08-28 | Outpatient (REF) | payer MEDICARE, OTHER ==
[~2021-08-28] MED LIST changes: -ACETAMINOPHEN 650MG ER TAB (TYLENOL ARTHRITIS) PO ONE; -ACETAMINOPHEN TAB 650MG DOSE (2X325MG) PO ONE; -ALBUTEROL SULFATE 2.5 MG/0.5 ML INH NEB SOLN INH PRN; -EPINEPHrine INJ 1 MG/ML 1ML AMP IM PRN; -diphenhydrAMINE 50MG CAP PO ONE; -diphenhydrAMINE 50MG/ML VIAL (J1200) IV PRN; -methylPREDNISolone 125MG 2ML VIAL IV ONE; -methylPREDNISolone 125MG 2ML VIAL IV PRN; -riTUXimab (INITIAL INFUSION) IV ONE; -riTUXimab 1,000 MG in NS 900 ML IV ONE
[2021-08-28 13:07] LABS: BASO % 0.3 % (0.0-1.0); EOS # 0.2 10^3/uL (0.0-0.5); HEMATOCRIT 37.7 % (42.0-52.0); HEMOGLOBIN 11.8 g/dl (13.5-17.5); LYMPH # 1.3 10^3/uL (1.5-5.0); LYMPH % 17.2 % (24.0-44.0); MEAN CORPUSCULAR HEMOGLOBIN 28.3 pg (27.0-33.0); MEAN CORPUSCULAR HGB CONC 31.3 g/dl (32.0-36.5); MEAN CORPUSCULAR VOLUME 90.4 fl (80.0-96.0); MONO # 0.9 10^3/uL (0.0-0.8); NEUTROPHILS # 5.1 10^3/uL (1.5-8.5); NEUTROPHILS % 67.7 % (36.0-66.0); PLATELET COUNT, AUTOMATED 298 10^3/uL (150-450); RED BLOOD COUNT 4.17 10^6/uL (4.30-6.10); WHITE BLOOD COUNT 7.5 10^3/uL (4.0-10.0)
[2021-08-28 13:32] LABS: ALBUMIN 3.1 GM/DL (3.2-5.2); ALT/SGPT 9 U/L (12-78); BILIRUBIN,TOTAL 0.4 MG/DL (0.2-1.0); BLOOD UREA NITROGEN 23 MG/DL (7-18); C REACTIVE PROTEIN QUANTITATIV 1.46 MG/DL (0.00-0.30); CALCIUM LEVEL 9.4 MG/DL (8.8-10.2); CARBON DIOXIDE LEVEL 29 MEQ/L (21-32); CHLORIDE LEVEL 104 MEQ/L (98-107); CREATININE FOR GFR 0.89 MG/DL (0.70-1.30); GLOMERULAR FILTRATION RATE > 60.0 (>42); GLUCOSE, FASTING 81 MG/DL (70-100); SODIUM LEVEL 140 MEQ/L (136-145); TOTAL PROTEIN 6.8 GM/DL (6.4-8.2)
[2021-08-28 13:44] LABS: ERYTHROCYTE SEDIMENTATION RATE 22 mm/hr (0-20)
== END ==
LOC: M SFHCADAM 10:44
PROVIDERS: ATTEND Family Medicine
DX: M06.09 Rheumatoid arthritis without rheumatoid factor, multiple sites (principal); Z79.899 Other long term (current) drug therapy; M15.9 Polyosteoarthritis, unspecified

== ENCOUNTER → 2021-11-21 | Outpatient (REF) | payer MEDICARE, OTHER ==
[2021-11-21 16:37] LABS: BASO % 0.6 % (0.0-1.0); EOS # 0.1 10^3/uL (0.0-0.5); EOS % 1.6 % (0.0-3.0); HEMATOCRIT 35.3 % (42.0-52.0); HEMOGLOBIN 10.8 g/dl (13.5-17.5); LYMPH # 0.9 10^3/uL (1.5-5.0); LYMPH % 17.1 % (24.0-44.0); MEAN CORPUSCULAR HEMOGLOBIN 27.5 pg (27.0-33.0); MEAN CORPUSCULAR HGB CONC 30.6 g/dl (32.0-36.5); MEAN CORPUSCULAR VOLUME 89.8 fl (80.0-96.0); MONO # 0.8 10^3/uL (0.0-0.8); MONO % 15.3 % (2.0-8.0); NEUTROPHILS # 3.3 10^3/uL (1.5-8.5); NEUTROPHILS % 64.6 % (36.0-66.0); PLATELET COUNT, AUTOMATED 312 10^3/uL (150-450); RED BLOOD COUNT 3.93 10^6/uL (4.30-6.10); WHITE BLOOD COUNT 5.2 10^3/uL (4.0-10.0)
[2021-11-21 17:43] LABS: ALT/SGPT < 6 U/L (12-78); BILIRUBIN,TOTAL 0.4 MG/DL (0.2-1.0); BLOOD UREA NITROGEN 20 MG/DL (7-18); C REACTIVE PROTEIN QUANTITATIV 6.84 MG/DL (0.00-0.30); CARBON DIOXIDE LEVEL 28 MEQ/L (21-32); CHLORIDE LEVEL 106 MEQ/L (98-107); CREATININE FOR GFR 0.75 MG/DL (0.70-1.30); GLOMERULAR FILTRATION RATE > 60.0 (>42); GLUCOSE, FASTING 75 MG/DL (70-100); POTASSIUM SERUM 4.1 MEQ/L (3.5-5.1); SODIUM LEVEL 140 MEQ/L (136-145); TOTAL PROTEIN 6.5 GM/DL (6.4-8.2)
[2021-11-21 17:44] LABS: ERYTHROCYTE SEDIMENTATION RATE 41 mm/hr (0-20)
== END ==
LOC: M SFHCADAM 12:11
PROVIDERS: ATTEND Internal Medicine Rheumatology
DX: M06.09 Rheumatoid arthritis without rheumatoid factor, multiple sites (principal); Z79.899 Other long term (current) drug therapy; M15.9 Polyosteoarthritis, unspecified

== ENCOUNTER 2022-02-11 08:00 | Outpatient (CLI) | payer MEDICARE, BC, OTHER ==
[~2022-02-11] VITALS: Ht 175.3 cm; Wt 72.6 kg
[~2022-02-11 08:00] MED LIST changes: +ACETAMINOPHEN 650MG ER TAB (TYLENOL ARTHRITIS) PO ONE; +ALBUTEROL SULFATE 2.5 MG/0.5 ML INH NEB SOLN INH PRN; -DOXY-350 PO; +DOXY-444 PO; +EPINEPHrine INJ 1 MG/ML 1ML AMP IM PRN; +diphenhydrAMINE 50MG CAP PO ONE; +diphenhydrAMINE 50MG/ML VIAL (J1200) IV PRN; +methylPREDNISolone 125MG 2ML VIAL IV ONE; +methylPREDNISolone 125MG 2ML VIAL IV PRN; +riTUXimab 1,000 MG in NS 900 ML IV ONE
[2022-02-11 08:16] VITALS: BP 158/74
[2022-02-11 09:00] VITALS: BP 169/77
[2022-02-11 09:30] VITALS: BP 170/80
[2022-02-11 10:00] VITALS: BP 142/81
[2022-02-11 11:00] VITALS: BP 168/72
[2022-02-11 11:43] VITALS: BP 145/71
== END 2022-02-11 12:00 | disposition home or self-care (01) ==
LOC: M INFU 08:00
PROVIDERS: ATTEND Internal Medicine Rheumatology
DX: M06.9 Rheumatoid arthritis, unspecified (principal)
CPT/HCPCS: 96367; 96413; 96415; J2930; J9312

== ENCOUNTER 2022-02-25 07:55 | Outpatient (CLI) | payer MEDICARE, BC, OTHER ==
[~2022-02-25] VITALS: Ht 175.3 cm; Wt 72.7 kg
[~2022-02-25 07:55] MED LIST changes: -ACETAMINOPHEN 650MG ER TAB (TYLENOL ARTHRITIS) PO ONE; -diphenhydrAMINE 50MG CAP PO ONE; -diphenhydrAMINE 50MG/ML VIAL (J1200) IV PRN; +diphenhydrAMINE 50MG/ML VIAL IV PRN; -methylPREDNISolone 125MG 2ML VIAL IV ONE; -riTUXimab 1,000 MG in NS 900 ML IV ONE
[2022-02-25 08:00] VITALS: BP 148/72
[2022-02-25] MEDS ORDERED: riTUXimab 1,000 MG in NS 900 ML IV ONE (08:00)
[2022-02-25] MEDS ORDERED: diphenhydrAMINE 50MG CAP PO ONE (08:00)
[2022-02-25] MEDS ORDERED: methylPREDNISolone 125MG 2ML VIAL IV ONE (08:00)
[2022-02-25] MEDS ORDERED: ACETAMINOPHEN 650MG ER TAB (TYLENOL ARTHRITIS) PO ONE (08:00)
[2022-02-25 10:45] VITALS: BP 149/71
[2022-02-25 12:35] VITALS: BP 144/88
== END 2022-02-25 12:35 | disposition home or self-care (01) ==
LOC: M INFU 07:55
PROVIDERS: ATTEND Internal Medicine Rheumatology
DX: M06.09 Rheumatoid arthritis without rheumatoid factor, multiple sites (principal)
CPT/HCPCS: 96375; 96413; 96415; J2930; J9312

== ENCOUNTER → 2022-03-31 | Outpatient (REF) | payer MEDICARE, OTHER ==
[~2022-03-31] MED LIST changes: -ALBUTEROL SULFATE 2.5 MG/0.5 ML INH NEB SOLN INH PRN; -EPINEPHrine INJ 1 MG/ML 1ML AMP IM PRN; -diphenhydrAMINE 50MG/ML VIAL IV PRN; -methylPREDNISolone 125MG 2ML VIAL IV PRN
[2022-03-31 13:20] LABS: HEMATOCRIT 34.7 % (42.0-52.0); HEMOGLOBIN 10.3 g/dl (13.5-17.5); MEAN CORPUSCULAR HEMOGLOBIN 24.7 pg (27.0-33.0); MEAN CORPUSCULAR HGB CONC 29.7 g/dl (32.0-36.5); MEAN CORPUSCULAR VOLUME 83.2 fl (80.0-96.0); PLATELET COUNT, AUTOMATED 328 10^3/uL (150-450); RED BLOOD COUNT 4.17 10^6/uL (4.30-6.10); WHITE BLOOD COUNT 21.9 10^3/uL (4.0-10.0)
[2022-03-31 13:46] LABS: ALKALINE PHOSPHATASE 140 U/L (46-116); ALT/SGPT < 9 U/L (7.0-40); AST/SGOT 13 U/L (<34); BILIRUBIN,TOTAL 0.6 MG/DL (0.3-1.2); BLOOD UREA NITROGEN 24 MG/DL (9-23); CALCIUM LEVEL 8.8 MG/DL (8.3-10.6); CARBON DIOXIDE LEVEL 28 MMOL/L (20-31); CHLORIDE LEVEL 101 MMOL/L (98-107); CHOLESTEROL LEVEL 187 MG/DL (<200); CHOLESTEROL RISK RATIO 2.43 (<5); CREATININE FOR GFR 0.79 MG/DL (0.70-1.30); GLOMERULAR FILTRATION RATE > 60.0 (>42); GLUCOSE, FASTING 80 MG/DL (74-106); HDL CHOLESTEROL 76.8 MG/DL (>40); LDL CHOLESTEROL 101.2 MG/DL (<100); NON-HDL-C 110 MG/DL; POTASSIUM SERUM 4.2 MMOL/L (3.5-5.1); SODIUM LEVEL 137 MMOL/L (136-145); TOTAL PROTEIN 6.3 G/DL (5.7-8.2); TRIGLYCERIDES LEVEL 45 MG/DL (<150)
[2022-03-31 13:47] LABS: FREE T4 1.03 NG/DL (0.89-1.76); THYROID STIMULATING HORMONE 2.168 uIU/ML (0.55-4.78)
[2022-03-31 14:08] LABS: ERYTHROCYTE SEDIMENTATION RATE 36 mm/hr (0-20)
== END ==
LOC: M SFHCADAM 11:38
PROVIDERS: ATTEND Internal Medicine Rheumatology
DX: E03.9 Hypothyroidism, unspecified (principal); N52.1 Erectile dysfunction due to diseases classified elsewhere; M06.9 Rheumatoid arthritis, unspecified; E78.5 Hyperlipidemia, unspecified; M06.09 Rheumatoid arthritis without rheumatoid factor, multiple sites; Z79.899 Other long term (current) drug therapy; M15.9 Polyosteoarthritis, unspecified

== ENCOUNTER → 2022-04-17 | Outpatient (REF) | payer MEDICARE, OTHER ==
[2022-04-17 13:20] LABS: BASO % 0.3 % (0.0-1.0); EOS # 0.1 10^3/uL (0.0-0.5); EOS % 1.5 % (0.0-3.0); HEMOGLOBIN 10.7 g/dl (13.5-17.5); LYMPH # 0.7 10^3/uL (1.5-5.0); LYMPH % 11.3 % (24.0-44.0); MEAN CORPUSCULAR HEMOGLOBIN 24.3 pg (27.0-33.0); MEAN CORPUSCULAR HGB CONC 29.7 g/dl (32.0-36.5); MEAN CORPUSCULAR VOLUME 81.6 fl (80.0-96.0); MONO # 0.8 10^3/uL (0.0-0.8); MONO % 12.4 % (2.0-8.0); NEUTROPHILS # 4.8 10^3/uL (1.5-8.5); PLATELET COUNT, AUTOMATED 367 10^3/uL (150-450); RED BLOOD COUNT 4.41 10^6/uL (4.30-6.10); WHITE BLOOD COUNT 6.5 10^3/uL (4.0-10.0)
[2022-04-17 13:35] LABS: ERYTHROCYTE SEDIMENTATION RATE 43 mm/hr (0-20)
[2022-04-17 13:47] LABS: ALBUMIN 3.2 G/DL (3.2-5.2); ALKALINE PHOSPHATASE 163 U/L (46-116); ALT/SGPT < 9 U/L (7.0-40); AST/SGOT 10 U/L (<34); BILIRUBIN,TOTAL 0.4 MG/DL (0.3-1.2); BLOOD UREA NITROGEN 18 MG/DL (9-23); CALCIUM LEVEL 8.9 MG/DL (8.3-10.6); CARBON DIOXIDE LEVEL 28 MMOL/L (20-31); CHLORIDE LEVEL 102 MMOL/L (98-107); CREATININE FOR GFR 0.61 MG/DL (0.70-1.30); GLOMERULAR FILTRATION RATE > 60.0 (>42); GLUCOSE, FASTING 85 MG/DL (74-106); POTASSIUM SERUM 4.6 MMOL/L (3.5-5.1); SODIUM LEVEL 139 MMOL/L (136-145); TOTAL PROTEIN 6.2 G/DL (5.7-8.2)
== END ==
LOC: M SFHCRHEU 11:36
PROVIDERS: ATTEND Internal Medicine Rheumatology
DX: M06.09 Rheumatoid arthritis without rheumatoid factor, multiple sites (principal); Z79.899 Other long term (current) drug therapy; M15.9 Polyosteoarthritis, unspecified; D64.89 Other specified anemias; D72.828 Other elevated white blood cell count; R79.82 Elevated C-reactive protein (CRP)

== ENCOUNTER → 2022-04-18 | Outpatient (CLI) | payer MEDICARE, BC, OTHER | LOC: M SOG 13:22 | PROVIDERS: ATTEND Physician Assistant | DX: M25.531 Pain in right wrist (principal); M19.031 Primary osteoarthritis, right wrist ==

== ENCOUNTER → 2022-04-21 | Outpatient (CLI) | payer MEDICARE, BC, OTHER | LOC: M RAD 16:28 | PROVIDERS: ATTEND Internal Medicine Rheumatology | DX: M06.09 Rheumatoid arthritis without rheumatoid factor, multiple sites (principal); Z79.899 Other long term (current) drug therapy; M15.9 Polyosteoarthritis, unspecified; M65.831 Other synovitis and tenosynovitis, right forearm ==

== ENCOUNTER → 2022-06-03 | Outpatient (REF) | payer MEDICARE, OTHER ==
[2022-06-03 16:33] LABS: BASO % 0.5 % (0.0-1.0); EOS # 0.1 10^3/uL (0.0-0.5); EOS % 2.2 % (0.0-3.0); HEMATOCRIT 37.8 % (42.0-52.0); LYMPH % 15.6 % (24.0-44.0); MEAN CORPUSCULAR HEMOGLOBIN 23.8 pg (27.0-33.0); MEAN CORPUSCULAR HGB CONC 29.1 g/dl (32.0-36.5); MEAN CORPUSCULAR VOLUME 81.6 fl (80.0-96.0); MONO % 15.4 % (2.0-8.0); NEUTROPHILS # 4.1 10^3/uL (1.5-8.5); NEUTROPHILS % 65.7 % (36.0-66.0); PLATELET COUNT, AUTOMATED 260 10^3/uL (150-450); RED BLOOD COUNT 4.63 10^6/uL (4.30-6.10); WHITE BLOOD COUNT 6.3 10^3/uL (4.0-10.0)
[2022-06-03 17:26] LABS: ALBUMIN 3.3 G/DL (3.2-5.2); ALKALINE PHOSPHATASE 119 U/L (46-116); ALT/SGPT < 9 U/L (7.0-40); AST/SGOT 16 U/L (<34); BILIRUBIN,TOTAL 0.4 MG/DL (0.3-1.2); BLOOD UREA NITROGEN 23 MG/DL (9-23); CALCIUM LEVEL 8.6 MG/DL (8.3-10.6); CARBON DIOXIDE LEVEL 30 MMOL/L (20-31); CHLORIDE LEVEL 103 MMOL/L (98-107); GLUCOSE, FASTING 86 MG/DL (74-106); POTASSIUM SERUM 4.5 MMOL/L (3.5-5.1); SODIUM LEVEL 139 MMOL/L (136-145); TOTAL PROTEIN 6.2 G/DL (5.7-8.2)
[2022-06-03 17:40] LABS: ERYTHROCYTE SEDIMENTATION RATE 33 mm/hr (0-20)
[2022-06-03 20:39] LABS: CREATININE FOR GFR 0.72 MG/DL (0.70-1.30); GLOMERULAR FILTRATION RATE > 60.0 (>42)
== END ==
LOC: M SFHCADAM 11:09
PROVIDERS: ATTEND Family Medicine
DX: M06.09 Rheumatoid arthritis without rheumatoid factor, multiple sites (principal); Z79.899 Other long term (current) drug therapy; M15.9 Polyosteoarthritis, unspecified; M48.061 Spinal stenosis, lumbar region without neurogenic claudication

== ENCOUNTER → 2022-06-23 | Outpatient (CLI) | payer MEDICARE, BC, OTHER ==
[~2022-06-23] MED LIST changes: +PROHANCE 279.3MG/ML 15ML VIAL ONE
== END ==
LOC: M PLAIMG 08:21
PROVIDERS: ATTEND Family Medicine
DX: M48.061 Spinal stenosis, lumbar region without neurogenic claudication (principal); M51.26 Other intervertebral disc displacement, lumbar region; M47.816 Spondylosis without myelopathy or radiculopathy, lumbar region
CPT/HCPCS: 72158; A9576

== ENCOUNTER → 2022-08-18 | Outpatient (REF) | payer MEDICARE, OTHER ==
[~2022-08-18] MED LIST changes: -PROHANCE 279.3MG/ML 15ML VIAL ONE
[2022-08-18 13:55] LABS: BASO % 0.3 % (0.0-1.0); EOS # 0.1 10^3/uL (0.0-0.5); EOS % 1.4 % (0.0-3.0); HEMATOCRIT 37.7 % (42.0-52.0); HEMOGLOBIN 11.3 g/dl (13.5-17.5); LYMPH # 1.2 10^3/uL (1.5-5.0); LYMPH % 13.2 % (24.0-44.0); MEAN CORPUSCULAR HEMOGLOBIN 24.9 pg (27.0-33.0); MONO # 0.8 10^3/uL (0.0-0.8); MONO % 8.5 % (2.0-8.0); NEUTROPHILS % 76.3 % (36.0-66.0); PLATELET COUNT, AUTOMATED 304 10^3/uL (150-450); RED BLOOD COUNT 4.54 10^6/uL (4.30-6.10); WHITE BLOOD COUNT 9.2 10^3/uL (4.0-10.0)
[2022-08-18 14:06] LABS: ALBUMIN 3.6 G/DL (3.2-5.2); ALKALINE PHOSPHATASE 133 U/L (46-116); ALT/SGPT < 9 U/L (7.0-40); AST/SGOT 14 U/L (<34); BILIRUBIN,TOTAL 0.7 MG/DL (0.3-1.2); BLOOD UREA NITROGEN 22 MG/DL (9-23); CALCIUM LEVEL 9.1 MG/DL (8.3-10.6); CARBON DIOXIDE LEVEL 30 MMOL/L (20-31); CHLORIDE LEVEL 103 MMOL/L (98-107); CREATININE FOR GFR 0.99 MG/DL (0.70-1.30); GLOMERULAR FILTRATION RATE > 60.0 (>42); GLUCOSE, FASTING 93 MG/DL (74-106); POTASSIUM SERUM 3.6 MMOL/L (3.5-5.1); SODIUM LEVEL 137 MMOL/L (136-145); TOTAL PROTEIN 6.5 G/DL (5.7-8.2)
[2022-08-18 14:14] LABS: ERYTHROCYTE SEDIMENTATION RATE 32 mm/hr (0-20)
== END ==
LOC: M SFHCADAM 11:22
PROVIDERS: ATTEND Internal Medicine Rheumatology
DX: M06.09 Rheumatoid arthritis without rheumatoid factor, multiple sites (principal); Z79.899 Other long term (current) drug therapy; M15.9 Polyosteoarthritis, unspecified; D64.89 Other specified anemias; D72.828 Other elevated white blood cell count; R79.82 Elevated C-reactive protein (CRP)

== ENCOUNTER 2022-08-27 09:10 | Outpatient (CLI) | payer MEDICARE, BC, OTHER ==
[~2022-08-27] VITALS: Ht 175.3 cm; Wt 75.6 kg
[~2022-08-27 09:10] MED LIST changes: +ALBUTEROL SULFATE 2.5MG/0.5ML INH NEB SOLN INH PRN; +EPINEPHrine INJ 1 MG/ML 1ML AMP IM PRN; +diphenhydrAMINE 50MG/ML VIAL IV PRN; +methylPREDNISolone 125MG 2ML VIAL IV PRN
[2022-08-27 09:25] VITALS: BP 150/70
[2022-08-27] MEDS ORDERED: ACETAMINOPHEN 650MG ER TAB (TYLENOL ARTHRITIS) PO ONE (10:00)
[2022-08-27] MEDS ORDERED: methylPREDNISolone 125MG 2ML VIAL IV ONE (10:00)
[2022-08-27] MEDS ORDERED: riTUXimab 1,000 MG in NS 900 ML IV ONE (10:00)
[2022-08-27] MEDS ORDERED: diphenhydrAMINE 25MG CAP PO ONE (10:00)
[2022-08-27 11:30] VITALS: BP 171/81
[2022-08-27 12:00] VITALS: BP 164/79
[2022-08-27 13:00] VITALS: BP 155/78
[2022-08-27 14:20] VITALS: BP 150/70
== END 2022-08-27 14:40 | disposition home or self-care (01) ==
LOC: M INFU 09:10
PROVIDERS: ATTEND Internal Medicine Rheumatology
DX: M06.9 Rheumatoid arthritis, unspecified (principal)
CPT/HCPCS: 96367; 96413; 96415; J2930; J9312

== ENCOUNTER 2022-09-10 09:50 | Outpatient (CLI) | payer MEDICARE, BC, OTHER ==
[~2022-09-10] VITALS: Ht 175.3 cm; Wt 75.6 kg
[2022-09-10] VITALS (7 sets, daily range): BP systolic 122–168; BP diastolic 62–84
[2022-09-10] MEDS ORDERED: riTUXimab 1,000 MG in NS 900 ML IV ONE (10:00)
[2022-09-10] MEDS ORDERED: ACETAMINOPHEN 650MG ER TAB (TYLENOL ARTHRITIS) PO ONE (10:00)
[2022-09-10] MEDS ORDERED: methylPREDNISolone 125MG 2ML VIAL IV ONE (10:00)
[2022-09-10] MEDS ORDERED: methylPREDNISolone 40MG 1ML VIAL IV ONE (10:00)
[2022-09-10] MEDS ORDERED: diphenhydrAMINE 25MG CAP PO ONE (10:00)
== END 2022-09-10 14:20 | disposition home or self-care (01) ==
LOC: M INFU 09:50
PROVIDERS: ATTEND Internal Medicine Rheumatology
DX: M06.09 Rheumatoid arthritis without rheumatoid factor, multiple sites (principal)
CPT/HCPCS: 96367; 96413; 96415; J2920; J9312

== ENCOUNTER → 2022-10-23 | Outpatient (REF) | payer MEDICARE, OTHER ==
[~2022-10-23] MED LIST changes: -ALBUTEROL SULFATE 2.5MG/0.5ML INH NEB SOLN INH PRN; -EPINEPHrine INJ 1 MG/ML 1ML AMP IM PRN; -diphenhydrAMINE 50MG/ML VIAL IV PRN; -methylPREDNISolone 125MG 2ML VIAL IV PRN
[2022-10-23 16:36] LABS: BASO % 0.3 % (0.0-1.0); EOS # 0.1 10^3/uL (0.0-0.5); EOS % 2.2 % (0.0-3.0); HEMATOCRIT 38.1 % (42.0-52.0); HEMOGLOBIN 11.9 g/dl (13.5-17.5); LYMPH # 0.8 10^3/uL (1.5-5.0); LYMPH % 12.8 % (24.0-44.0); MEAN CORPUSCULAR HEMOGLOBIN 28.3 pg (27.0-33.0); MEAN CORPUSCULAR HGB CONC 31.2 g/dl (32.0-36.5); MEAN CORPUSCULAR VOLUME 90.7 fl (80.0-96.0); MONO # 0.4 10^3/uL (0.0-0.8); MONO % 5.9 % (2.0-8.0); NEUTROPHILS % 78.3 % (36.0-66.0); PLATELET COUNT, AUTOMATED 238 10^3/uL (150-450); WHITE BLOOD COUNT 6.4 10^3/uL (4.0-10.0)
[2022-10-23 16:38] LABS: C REACTIVE PROTEIN QUANTITATIV < 0.40 MG/DL (<1.0)
[2022-10-23 16:39] LABS: ALBUMIN 3.6 G/DL (3.2-5.2); ALKALINE PHOSPHATASE 123 U/L (46-116); ALT/SGPT < 9 U/L (7.0-40); AST/SGOT < 8 U/L (<34); BILIRUBIN,TOTAL 0.8 MG/DL (0.3-1.2); BLOOD UREA NITROGEN 19 MG/DL (9-23); CALCIUM LEVEL 9.6 MG/DL (8.3-10.6); CARBON DIOXIDE LEVEL 30 MMOL/L (20-31); CHLORIDE LEVEL 101 MMOL/L (98-107); CREATININE FOR GFR 0.99 MG/DL (0.70-1.30); GLOMERULAR FILTRATION RATE > 60.0 (>42); GLUCOSE, FASTING 90 MG/DL (74-106); POTASSIUM SERUM 3.9 MMOL/L (3.5-5.1); SODIUM LEVEL 140 MMOL/L (136-145); TOTAL PROTEIN 6.1 G/DL (5.7-8.2)
[2022-10-23 18:36] LABS: ERYTHROCYTE SEDIMENTATION RATE 9 mm/hr (0-20)
== END ==
LOC: M SFHCADAM 13:08
PROVIDERS: ATTEND Internal Medicine Rheumatology
DX: M06.09 Rheumatoid arthritis without rheumatoid factor, multiple sites (principal); Z79.899 Other long term (current) drug therapy; M15.9 Polyosteoarthritis, unspecified; R79.82 Elevated C-reactive protein (CRP)

== ENCOUNTER → 2022-11-04 | Outpatient (REF) | payer MEDICARE, OTHER | LOC: M SFHCRHEU 15:03 | PROVIDERS: ATTEND Internal Medicine Rheumatology | DX: M06.09 Rheumatoid arthritis without rheumatoid factor, multiple sites (principal); Z79.899 Other long term (current) drug therapy; M15.9 Polyosteoarthritis, unspecified; R79.82 Elevated C-reactive protein (CRP) ==

== ENCOUNTER → 2022-11-25 | Outpatient (REF) | payer MEDICARE, OTHER ==
[~2022-11-25] MED LIST changes: +IMUR50TA10 PO; +PRED1TABL PO
[2022-11-25 16:53] LABS: ALBUMIN 3.7 G/DL (3.2-5.2); ALKALINE PHOSPHATASE 110 U/L (46-116); ALT/SGPT < 9 U/L (7.0-40); AST/SGOT 12 U/L (<34); BILIRUBIN,TOTAL 0.8 MG/DL (0.3-1.2); BLOOD UREA NITROGEN 18 MG/DL (9-23); CALCIUM LEVEL 9.3 MG/DL (8.3-10.6); CARBON DIOXIDE LEVEL 30 MMOL/L (20-31); CHLORIDE LEVEL 107 MMOL/L (98-107); CREATININE FOR GFR 1.08 MG/DL (0.70-1.30); GLOMERULAR FILTRATION RATE > 60.0 (>42); GLUCOSE, FASTING 92 MG/DL (74-106); POTASSIUM SERUM 4.1 MMOL/L (3.5-5.1); SODIUM LEVEL 143 MMOL/L (136-145); TOTAL PROTEIN 6.2 G/DL (5.7-8.2)
[2022-11-25 17:02] LABS: BASO % 0.4 % (0.0-1.0); EOS # 0.1 10^3/uL (0.0-0.5); EOS % 1.4 % (0.0-3.0); HEMATOCRIT 36.4 % (42.0-52.0); HEMOGLOBIN 11.5 g/dl (13.5-17.5); LYMPH # 1.1 10^3/uL (1.5-5.0); LYMPH % 14.8 % (24.0-44.0); MEAN CORPUSCULAR HEMOGLOBIN 31.3 pg (27.0-33.0); MEAN CORPUSCULAR HGB CONC 31.6 g/dl (32.0-36.5); MEAN CORPUSCULAR VOLUME 99.2 fl (80.0-96.0); MONO # 0.6 10^3/uL (0.0-0.8); MONO % 8.5 % (2.0-8.0); NEUTROPHILS # 5.3 10^3/uL (1.5-8.5); NEUTROPHILS % 74.3 % (36.0-66.0); PLATELET COUNT, AUTOMATED 261 10^3/uL (150-450); RED BLOOD COUNT 3.67 10^6/uL (4.30-6.10); WHITE BLOOD COUNT 7.1 10^3/uL (4.0-10.0)
== END ==
LOC: M SFHCADAM 11:44
PROVIDERS: ATTEND Physician Assistant
DX: R55 Syncope and collapse (principal)

== ENCOUNTER → 2022-12-16 | Outpatient (REF) | payer MEDICARE, BC, OTHER ==
[2022-12-16 17:53] LABS: BASO % 0.5 % (0.0-1.0); EOS # 0.1 10^3/uL (0.0-0.5); EOS % 1.5 % (0.0-3.0); HEMATOCRIT 35.3 % (42.0-52.0); HEMOGLOBIN 11.4 g/dl (13.5-17.5); LYMPH # 0.8 10^3/uL (1.5-5.0); LYMPH % 11.8 % (24.0-44.0); MEAN CORPUSCULAR HEMOGLOBIN 33.5 pg (27.0-33.0); MEAN CORPUSCULAR HGB CONC 32.3 g/dl (32.0-36.5); MEAN CORPUSCULAR VOLUME 103.8 fl (80.0-96.0); MONO # 0.5 10^3/uL (0.0-0.8); MONO % 6.8 % (2.0-8.0); NEUTROPHILS # 5.3 10^3/uL (1.5-8.5); NEUTROPHILS % 79.1 % (36.0-66.0); PLATELET COUNT, AUTOMATED 228 10^3/uL (150-450); WHITE BLOOD COUNT 6.6 10^3/uL (4.0-10.0)
[2022-12-16 18:16] LABS: C REACTIVE PROTEIN QUANTITATIV < 0.40 MG/DL (<1.0)
[2022-12-16 18:18] LABS: ALBUMIN 3.4 G/DL (3.2-5.2); ALKALINE PHOSPHATASE 107 U/L (46-116); ALT/SGPT < 9 U/L (7.0-40); AST/SGOT < 8 U/L (<34); BILIRUBIN,TOTAL 0.8 MG/DL (0.3-1.2); BLOOD UREA NITROGEN 17 MG/DL (9-23); CALCIUM LEVEL 8.6 MG/DL (8.3-10.6); CARBON DIOXIDE LEVEL 29 MMOL/L (20-31); CHLORIDE LEVEL 104 MMOL/L (98-107); CREATININE FOR GFR 1.04 MG/DL (0.70-1.30); GLOMERULAR FILTRATION RATE > 60.0 (>42); GLUCOSE, FASTING 117 MG/DL (74-106); SODIUM LEVEL 140 MMOL/L (136-145); TOTAL PROTEIN 5.9 G/DL (5.7-8.2)
[2022-12-16 18:31] LABS: ERYTHROCYTE SEDIMENTATION RATE 8 mm/hr (0-20)
== END ==
LOC: M SFHCADAM 13:16
PROVIDERS: ATTEND Internal Medicine Rheumatology
DX: M06.09 Rheumatoid arthritis without rheumatoid factor, multiple sites (principal); Z79.899 Other long term (current) drug therapy; M15.9 Polyosteoarthritis, unspecified; R79.82 Elevated C-reactive protein (CRP)

== ENCOUNTER 2023-01-23 12:30 | Outpatient (RCR) | payer MEDICARE, BC, OTHER ==
[~2023-01-23 12:30] MED LIST changes: -CEFD300C41 PO; +CEFD300C42 PO
== END 2023-02-10 ==
LOC: M ST 12:30
PROVIDERS: ATTEND Family Medicine
DX: R47.89 Other speech disturbances (principal); G20.C Parkinsonism, unspecified

== ENCOUNTER → 2023-01-26 | Outpatient (CLI) | payer MEDICARE, BC, OTHER | LOC: M CARPUL 10:21 | PROVIDERS: ATTEND Family Medicine | DX: R55 Syncope and collapse (principal); I47.9 Paroxysmal tachycardia, unspecified ==

== ENCOUNTER 2023-03-03 11:00 | Outpatient (RCR) | payer MEDICARE, BC, OTHER ==
[~2023-03-03 11:00] MED LIST changes: -BARIUM SULFATE 700 MG TABLET (E-Z-DISK) As Ordered ONE; -E-Z-PAQUE 96% w/w SUSP 176GM BTL As Ordered ONE; -VARIBAR NECTAR 40% w/v 240ML SUSP BTL As Ordered ONE; -VARIBAR PUDDING 40% w/v 230ML TUBE As Ordered ONE
== END 2023-03-12 ==
LOC: M RAD 11:00
PROVIDERS: ATTEND Family Medicine
DX: G20.C Parkinsonism, unspecified (principal); R47.89 Other speech disturbances

== ENCOUNTER → 2023-03-03 | Outpatient (CLI) | payer MEDICARE, BC, OTHER ==
[~2023-03-03] MED LIST changes: +BARIUM SULFATE 700 MG TABLET (E-Z-DISK) As Ordered ONE; +E-Z-PAQUE 96% w/w SUSP 176GM BTL As Ordered ONE; +VARIBAR NECTAR 40% w/v 240ML SUSP BTL As Ordered ONE; +VARIBAR PUDDING 40% w/v 230ML TUBE As Ordered ONE
== END ==
LOC: M RAD 10:44
PROVIDERS: ATTEND Family Medicine
DX: R47.89 Other speech disturbances (principal); G20.C Parkinsonism, unspecified

== ENCOUNTER → 2023-07-02 | Outpatient (REF) | payer MEDICARE, OTHER ==
[~2023-07-02] MED LIST changes: +CEFD1CAP9 PO; -CEFD300C42 PO; +METO1TAB32 PO; +PRAM1.5T21 PO; -PRAM1TAB PO
[2023-07-02 13:46] LABS: BASO % 0.6 % (0.0-1.0); EOS # 0.1 10^3/uL (0.0-0.5); EOS % 1.9 % (0.0-3.0); HEMATOCRIT 34.9 % (42.0-52.0); HEMOGLOBIN 11.2 g/dl (13.5-17.5); LYMPH # 0.8 10^3/uL (1.5-5.0); MEAN CORPUSCULAR HEMOGLOBIN 32.7 pg (27.0-33.0); MEAN CORPUSCULAR HGB CONC 32.1 g/dl (32.0-36.5); MONO # 0.6 10^3/uL (0.0-0.8); NEUTROPHILS # 4.7 10^3/uL (1.5-8.5); NEUTROPHILS % 75.2 % (36.0-66.0); PLATELET COUNT, AUTOMATED 262 10^3/uL (150-450); RED BLOOD COUNT 3.42 10^6/uL (4.30-6.10); WHITE BLOOD COUNT 6.3 10^3/uL (4.0-10.0)
[2023-07-02 13:56] LABS: ERYTHROCYTE SEDIMENTATION RATE 23 mm/hr (0-20)
[2023-07-02 14:11] LABS: ALBUMIN 3.3 G/DL (3.2-5.2); ALKALINE PHOSPHATASE 144 U/L (46-116); ALT/SGPT < 9 U/L (7.0-40); AST/SGOT < 8 U/L (<34); BILIRUBIN,TOTAL 0.5 MG/DL (0.3-1.2); BLOOD UREA NITROGEN 22 MG/DL (9-23); CALCIUM LEVEL 8.9 MG/DL (8.3-10.6); CARBON DIOXIDE LEVEL 31 MMOL/L (20-31); CHLORIDE LEVEL 104 MMOL/L (98-107); GLOMERULAR FILTRATION RATE > 60.0 (>42); GLUCOSE, FASTING 89 MG/DL (74-106); POTASSIUM SERUM 4.5 MMOL/L (3.5-5.1); SODIUM LEVEL 140 MMOL/L (136-145)
== END ==
LOC: M SFHCADAM 10:44
PROVIDERS: ATTEND Internal Medicine Rheumatology
DX: M06.09 Rheumatoid arthritis without rheumatoid factor, multiple sites (principal); Z79.899 Other long term (current) drug therapy; M15.9 Polyosteoarthritis, unspecified; R79.82 Elevated C-reactive protein (CRP)

== ENCOUNTER 2023-07-11 11:06 | Emergency (ER) | payer MEDICARE, BC ==
[~2023-07-11] VITALS: Ht 172.7 cm; Wt 72.6 kg
[2023-07-11] MEDS: BOOSTRIX VACCINE (TETANUS/DIPHTH/ACEL. PERTUSSIS) 0.5ML SYR IM ONE (11:50)
[2023-07-11] MEDS ORDERED: AMOX875T2 PO (12:43)
[2023-07-11] MEDS: BACITRACIN OINTMENT 30GM TUBE TOP ONE (12:45)
[2023-07-11 12:55] VITALS: BP 126/84; TEMP 97.9; O2SAT 93
== END 2023-07-11 12:57 | disposition home or self-care (01) ==
LOC: M ED 11:06
DX: S41.131A Puncture wound without foreign body of right upper arm, initial encounter (principal); W54.0XXA Bitten by dog, initial encounter; E03.9 Hypothyroidism, unspecified; M06.9 Rheumatoid arthritis, unspecified; Y92.009 Unspecified place in unspecified non-institutional (private) residence as the place of occurrence of the external cause; Y93.9 Activity, unspecified; Y99.9 Unspecified external cause status; Z87.891 Personal history of nicotine dependence; Z23 Encounter for immunization; Z79.2 Long term (current) use of antibiotics; Z79.899 Other long term (current) drug therapy

== ENCOUNTER 2023-08-03 09:39 | Day surgery (SDC) | payer MEDICARE, BC ==
[~2023-08-03] VITALS: Ht 165.1 cm; Wt 69.9 kg
[2023-08-03] MEDS: LIDOCAINE 1% SDV 5ML VIAL As Ordered ONE (06:36)
[~2023-08-03 09:39] MED LIST changes: +AMOX875T2 PO; +LR 1,000 ML IV SCH; +MIDAZOLAM INJ 2MG/2ML VIAL As Ordered ONE; +PRED25TA PO; +fentaNYL 100 MCG/2 ML INJECTION As Ordered ONE
[2023-08-03] MEDS: CEFUROXIME 1MG/0.1ML INTRACAMERAL INJ As Ordered ONE (09:54)
[2023-08-03] MEDS: TETRACAINE 0.5% OPHTH SOLN 4ML OS SCH (10:22)
[2023-08-03] MEDS: ATROPINE SULFATE 1% OPHTH SOLN 2ML BTL OS SCH (10:22)
[2023-08-03] MEDS: PHENYLEPHRINE 2.5% OPHTH SOL 2ML OS SCH (10:22)
[2023-08-03] MEDS: FLURBIPROFEN 0.03% OPHTH SOLN 2.5 ML OS SCH (10:22)
[2023-08-03 12:33] VITALS: BP 175/89; TEMP 97.1; O2SAT 100
== END 2023-08-03 13:15 | disposition home or self-care (01) ==
LOC: M SDC 09:39
PROVIDERS: ATTEND Ophthalmology
DX: H25.12 Age-related nuclear cataract, left eye (principal); I25.10 Atherosclerotic heart disease of native coronary artery without angina pectoris; N40.0 Benign prostatic hyperplasia without lower urinary tract symptoms; Z79.52 Long term (current) use of systemic steroids; Z79.899 Other long term (current) drug therapy; Z87.891 Personal history of nicotine dependence
CPT/HCPCS: 66984; J0697; J2250; J3010; V2632

== ENCOUNTER 2023-08-31 08:16 | Day surgery (SDC) | payer MEDICARE, BC ==
[~2023-08-31] VITALS: Ht 175.3 cm; Wt 71.3 kg
[~2023-08-31 08:16] MED LIST changes: +DOXY-440 PO; -DOXY-444 PO
[2023-08-31] MEDS: ATROPINE SULFATE 1% OPHTH SOLN 2ML BTL OD SCH (09:25)
[2023-08-31] MEDS: PHENYLEPHRINE 2.5% OPHTH SOL 2ML OD SCH (09:25)
[2023-08-31] MEDS: FLURBIPROFEN 0.03% OPHTH SOLN 2.5 ML OD SCH (09:25)
[2023-08-31] MEDS: TETRACAINE 0.5% OPHTH SOLN 4ML OD SCH (09:25)
[2023-08-31] MEDS: CEFUROXIME 1MG/0.1ML INTRACAMERAL INJ As Ordered ONE (10:44)
[2023-08-31] MEDS: LIDOCAINE 1% SDV 5ML VIAL As Ordered ONE (10:44)
[2023-08-31 10:47] VITALS: BP 183/93; TEMP 97.6; O2SAT 99
== END 2023-08-31 11:05 | disposition home or self-care (01) ==
LOC: M SDC 08:16
PROVIDERS: ATTEND Ophthalmology
DX: H25.11 Age-related nuclear cataract, right eye (principal); G20.C Parkinsonism, unspecified; I25.10 Atherosclerotic heart disease of native coronary artery without angina pectoris; Z79.52 Long term (current) use of systemic steroids; Z79.899 Other long term (current) drug therapy; Z87.891 Personal history of nicotine dependence; N40.0 Benign prostatic hyperplasia without lower urinary tract symptoms
CPT/HCPCS: 66984; J0697; J2250; J3010; V2632

== ENCOUNTER → 2023-09-28 | Outpatient (REF) | payer MEDICARE, BC ==
[~2023-09-28] MED LIST changes: -LR 1,000 ML IV SCH; -MIDAZOLAM INJ 2MG/2ML VIAL As Ordered ONE; -fentaNYL 100 MCG/2 ML INJECTION As Ordered ONE
[2023-09-28 18:08] LABS: BASO % 0.6 % (0.0-1.0); EOS # 0.1 10^3/uL (0.0-0.5); EOS % 1.3 % (0.0-3.0); HEMATOCRIT 34.9 % (42.0-52.0); LYMPH # 0.8 10^3/uL (1.5-5.0); LYMPH % 12.5 % (24.0-44.0); MEAN CORPUSCULAR HEMOGLOBIN 31.2 pg (27.0-33.0); MEAN CORPUSCULAR HGB CONC 31.5 g/dl (32.0-36.5); MEAN CORPUSCULAR VOLUME 98.9 fl (80.0-96.0); MONO # 0.7 10^3/uL (0.0-0.8); MONO % 10.4 % (2.0-8.0); NEUTROPHILS # 4.7 10^3/uL (1.5-8.5); NEUTROPHILS % 74.6 % (36.0-66.0); PLATELET COUNT, AUTOMATED 284 10^3/uL (150-450); RED BLOOD COUNT 3.53 10^6/uL (4.30-6.10); WHITE BLOOD COUNT 6.3 10^3/uL (4.0-10.0)
[2023-09-28 18:29] LABS: ERYTHROCYTE SEDIMENTATION RATE 27 mm/hr (0-20)
[2023-09-28 18:35] LABS: ALBUMIN 3.3 G/DL (3.2-5.2); ALKALINE PHOSPHATASE 142 U/L (46-116); ALT/SGPT < 9 U/L (7.0-40); AST/SGOT < 8 U/L (<34); BILIRUBIN,TOTAL 0.6 MG/DL (0.3-1.2); BLOOD UREA NITROGEN 20 MG/DL (9-23); CALCIUM LEVEL 8.7 MG/DL (8.3-10.6); CARBON DIOXIDE LEVEL 30 MMOL/L (20-31); CHLORIDE LEVEL 106 MMOL/L (98-107); CREATININE FOR GFR 0.94 MG/DL (0.70-1.30); GLOMERULAR FILTRATION RATE > 60.0 (>42); GLUCOSE, FASTING 89 MG/DL (74-106); POTASSIUM SERUM 4.2 MMOL/L (3.5-5.1); SODIUM LEVEL 141 MMOL/L (136-145); TOTAL PROTEIN 6.1 G/DL (5.7-8.2)
== END ==
LOC: M SFHCADAM 13:46
PROVIDERS: ATTEND Internal Medicine Rheumatology
DX: M06.09 Rheumatoid arthritis without rheumatoid factor, multiple sites (principal); Z79.899 Other long term (current) drug therapy; M15.9 Polyosteoarthritis, unspecified; R79.82 Elevated C-reactive protein (CRP)

== ENCOUNTER → 2023-10-02 | Outpatient (REF) | payer MEDICARE, BC | LOC: M SFHCRHEU 14:43 | PROVIDERS: ATTEND Internal Medicine Rheumatology | DX: M06.09 Rheumatoid arthritis without rheumatoid factor, multiple sites (principal); Z79.899 Other long term (current) drug therapy; M15.9 Polyosteoarthritis, unspecified; R79.82 Elevated C-reactive protein (CRP) ==

== ENCOUNTER 2023-10-13 09:06 | Outpatient (CLI) | payer MEDICARE, BC ==
[~2023-10-13] VITALS: Ht 175.3 cm; Wt 70.5 kg
[~2023-10-13 09:06] MED LIST changes: +ALBUTEROL SULFATE 2.5MG/0.5ML INH NEB SOLN INH PRN; +EPINEPHrine INJ 1 MG/ML 1ML AMP IM PRN; +diphenhydrAMINE 50MG/ML VIAL IV PRN; +methylPREDNISolone 125MG 2ML VIAL IV PRN
[2023-10-13 09:30] VITALS: BP 148/67; O2SAT 98
[2023-10-13] MEDS: methylPREDNISolone 125MG 2ML VIAL IV ONE (09:59)
[2023-10-13] MEDS: ACETAMINOPHEN 650MG ER TAB (TYLENOL ARTHRITIS) PO ONE (09:59)
[2023-10-13] MEDS: diphenhydrAMINE 50MG PO PRIOR TO INFUSION PO ONE (09:59)
[2023-10-13] MEDS: riTUXimab 1,000 MG in NS 900 ML IV ONE (10:21)
[2023-10-13 11:00] VITALS: BP 138/66; O2SAT 97
[2023-10-13 11:30] VITALS: BP 156/77; O2SAT 98
[2023-10-13 12:00] VITALS: BP 149/70; O2SAT 98
[2023-10-13 12:30] VITALS: BP 143/76; O2SAT 97
[2023-10-13 14:35] VITALS: BP 146/75; O2SAT 98
== END 2023-10-13 14:35 ==
LOC: M INFU 09:06
PROVIDERS: ATTEND Internal Medicine Rheumatology
DX: M06.09 Rheumatoid arthritis without rheumatoid factor, multiple sites (principal)
CPT/HCPCS: 96375; 96413; 96415; J2919; J9312

== ENCOUNTER 2023-10-27 10:00 | Outpatient (CLI) | payer MEDICARE, BC ==
[~2023-10-27] VITALS: Ht 175.3 cm; Wt 70.5 kg
[2023-10-27 09:50] VITALS: BP 131/67; O2SAT 98
[~2023-10-27 10:00] MED LIST changes: +riTUXimab 1,000 MG in NS 900 ML IV ONE
[2023-10-27] MEDS: ACETAMINOPHEN 650MG ER TAB (TYLENOL ARTHRITIS) PO ONE (10:15)
[2023-10-27] MEDS: methylPREDNISolone 125MG 2ML VIAL IV ONE (10:15)
[2023-10-27] MEDS: diphenhydrAMINE 50MG PO PRIOR TO INFUSION PO ONE (10:15)
[2023-10-27] MEDS: riTUXimab 1,000 MG in NS 900 ML IV ONE (10:35)
[2023-10-27 11:00] VITALS: BP 131/70; O2SAT 97
[2023-10-27 11:30] VITALS: BP 140/69; O2SAT 97
[2023-10-27 13:00] VITALS: BP 148/67; O2SAT 97
== END 2023-10-27 15:00 ==
LOC: M INFU 10:00
PROVIDERS: ATTEND Internal Medicine Rheumatology
DX: M06.09 Rheumatoid arthritis without rheumatoid factor, multiple sites (principal)
CPT/HCPCS: 96367; 96413; 96415; J2919; J9312

== ENCOUNTER → 2023-11-11 | Outpatient (REF) | payer MEDICARE, BC ==
[~2023-11-11] MED LIST changes: -ALBUTEROL SULFATE 2.5MG/0.5ML INH NEB SOLN INH PRN; -EPINEPHrine INJ 1 MG/ML 1ML AMP IM PRN; -diphenhydrAMINE 50MG/ML VIAL IV PRN; -methylPREDNISolone 125MG 2ML VIAL IV PRN; -riTUXimab 1,000 MG in NS 900 ML IV ONE
== END ==
LOC: M SFHCDERM 07:56
PROVIDERS: ATTEND Physician Assistant
DX: L57.0 Actinic keratosis (principal); L57.8 Other skin changes due to chronic exposure to nonionizing radiation; L82.1 Other seborrheic keratosis

== ENCOUNTER → 2023-12-16 | Outpatient (REF) | payer MEDICARE, BC ==
[2023-12-16 19:03] LABS: BASO % 0.5 % (0.0-1.0); EOS # 0.1 10^3/uL (0.0-0.5); EOS % 1.6 % (0.0-3.0); HEMATOCRIT 35.4 % (42.0-52.0); HEMOGLOBIN 11.1 g/dl (13.5-17.5); LYMPH # 0.6 10^3/uL (1.5-5.0); LYMPH % 9.1 % (24.0-44.0); MEAN CORPUSCULAR HEMOGLOBIN 31.6 pg (27.0-33.0); MEAN CORPUSCULAR HGB CONC 31.4 g/dl (32.0-36.5); MEAN CORPUSCULAR VOLUME 100.9 fl (80.0-96.0); MONO # 0.6 10^3/uL (0.0-0.8); MONO % 8.7 % (2.0-8.0); NEUTROPHILS # 5.1 10^3/uL (1.5-8.5); NEUTROPHILS % 79.5 % (36.0-66.0); PLATELET COUNT, AUTOMATED 294 10^3/uL (150-450); RED BLOOD COUNT 3.51 10^6/uL (4.30-6.10); WHITE BLOOD COUNT 6.4 10^3/uL (4.0-10.0)
[2023-12-16 19:05] LABS: ALBUMIN 3.6 G/DL (3.2-5.2); ALKALINE PHOSPHATASE 129 U/L (46-116); ALT/SGPT < 9 U/L (7.0-40); AST/SGOT < 8 U/L (<34); BILIRUBIN,TOTAL 0.7 MG/DL (0.3-1.2); BLOOD UREA NITROGEN 23 MG/DL (9-23); CARBON DIOXIDE LEVEL 30 MMOL/L (20-31); CHLORIDE LEVEL 106 MMOL/L (98-107); CREATININE FOR GFR 0.85 MG/DL (0.70-1.30); GLOMERULAR FILTRATION RATE > 60.0 (>35); GLUCOSE, FASTING 91 MG/DL (74-106); POTASSIUM SERUM 4.1 MMOL/L (3.5-5.1); SODIUM LEVEL 140 MMOL/L (136-145); TOTAL PROTEIN 6.4 G/DL (5.7-8.2)
[2023-12-16 19:18] LABS: ERYTHROCYTE SEDIMENTATION RATE 22 mm/hr (0-20)
== END ==
LOC: M SFHCADAM 13:28
PROVIDERS: ATTEND Internal Medicine Rheumatology
DX: M06.09 Rheumatoid arthritis without rheumatoid factor, multiple sites (principal); Z79.899 Other long term (current) drug therapy; M15.9 Polyosteoarthritis, unspecified; R79.82 Elevated C-reactive protein (CRP)

== ENCOUNTER → 2023-12-31 | Outpatient (CLI) | payer MEDICARE, BC | LOC: M PLAIMG 10:23 | PROVIDERS: ATTEND Family Medicine | DX: R06.09 Other forms of dyspnea (principal); I27.20 Pulmonary hypertension, unspecified; I08.1 Rheumatic disorders of both mitral and tricuspid valves ==

== ENCOUNTER → 2024-03-21 | Outpatient (REF) | payer MEDICARE, BC ==
[2024-03-21 19:29] LABS: BASO % 0.4 % (0.0-1.0); EOS % 0.4 % (0.0-3.0); HEMATOCRIT 35.8 % (42.0-52.0); HEMOGLOBIN 11.6 g/dl (13.5-17.5); LYMPH # 0.4 10^3/uL (1.5-5.0); LYMPH % 5.9 % (24.0-44.0); MEAN CORPUSCULAR HEMOGLOBIN 34.6 pg (27.0-33.0); MEAN CORPUSCULAR HGB CONC 32.4 g/dl (32.0-36.5); MEAN CORPUSCULAR VOLUME 106.9 fl (80.0-96.0); MONO # 0.6 10^3/uL (0.0-0.8); MONO % 7.5 % (2.0-8.0); NEUTROPHILS # 6.2 10^3/uL (1.5-8.5); NEUTROPHILS % 85.3 % (36.0-66.0); PLATELET COUNT, AUTOMATED 256 10^3/uL (150-450); RED BLOOD COUNT 3.35 10^6/uL (4.30-6.10); WHITE BLOOD COUNT 7.3 10^3/uL (4.0-10.0)
[2024-03-21 19:42] LABS: BLOOD UREA NITROGEN 23 MG/DL (9-23); CALCIUM LEVEL 9.6 MG/DL (8.3-10.6); CARBON DIOXIDE LEVEL 30 MMOL/L (20-31); CHLORIDE LEVEL 103 MMOL/L (98-107); CREATININE FOR GFR 0.82 MG/DL (0.70-1.30); GLOMERULAR FILTRATION RATE > 60.0 (>35); GLUCOSE, FASTING 99 MG/DL (74-106); POTASSIUM SERUM 4.3 MMOL/L (3.5-5.1); SODIUM LEVEL 141 MMOL/L (136-145)
== END ==
LOC: M LABDRWAD 17:35
PROVIDERS: ATTEND Internal Medicine Cardiovascular Disease
DX: I34.0 Nonrheumatic mitral (valve) insufficiency (principal); Q21.0 Ventricular septal defect

== ENCOUNTER → 2024-04-14 | Outpatient (REF) | payer MEDICARE, BC ==
[2024-04-14 17:40] LABS: BASO % 0.3 % (0.0-1.0); EOS % 0.5 % (0.0-3.0); HEMOGLOBIN 12.2 g/dl (13.5-17.5); LYMPH # 0.3 10^3/uL (1.5-5.0); MEAN CORPUSCULAR HEMOGLOBIN 34.6 pg (27.0-33.0); MEAN CORPUSCULAR HGB CONC 32.1 g/dl (32.0-36.5); MEAN CORPUSCULAR VOLUME 107.6 fl (80.0-96.0); MONO # 0.5 10^3/uL (0.0-0.8); NEUTROPHILS # 5.6 10^3/uL (1.5-8.5); NEUTROPHILS % 87.7 % (36.0-66.0); PLATELET COUNT, AUTOMATED 290 10^3/uL (150-450); RED BLOOD COUNT 3.53 10^6/uL (4.30-6.10); WHITE BLOOD COUNT 6.4 10^3/uL (4.0-10.0)
[2024-04-14 17:47] LABS: ERYTHROCYTE SEDIMENTATION RATE 25 mm/hr (0-20)
[2024-04-14 17:55] LABS: C REACTIVE PROTEIN QUANTITATIV 3.22 MG/DL (<1.0)
[2024-04-14 17:56] LABS: ALBUMIN 3.7 G/DL (3.2-5.2); ALKALINE PHOSPHATASE 115 U/L (40-129); ALT/SGPT < 9 U/L (7.0-40); AST/SGOT 8 U/L (<34); BILIRUBIN,TOTAL 0.6 MG/DL (0.3-1.2); BLOOD UREA NITROGEN 20 MG/DL (9-23); CALCIUM LEVEL 9.5 MG/DL (8.3-10.6); CARBON DIOXIDE LEVEL 33 MMOL/L (20-31); CHLORIDE LEVEL 103 MMOL/L (98-107); CREATININE FOR GFR 0.86 MG/DL (0.70-1.30); GLOMERULAR FILTRATION RATE > 60.0 (>35); GLUCOSE, FASTING 94 MG/DL (74-106); POTASSIUM SERUM 4.7 MMOL/L (3.5-5.1); SODIUM LEVEL 142 MMOL/L (136-145); TOTAL PROTEIN 6.6 G/DL (5.7-8.2)
== END ==
LOC: M SFHCADAM 13:11
PROVIDERS: ATTEND Internal Medicine Rheumatology
DX: M06.09 Rheumatoid arthritis without rheumatoid factor, multiple sites (principal)

== ENCOUNTER → 2024-05-18 | Outpatient (REF) | payer MEDICARE, BC ==
[2024-05-18 18:20] LABS: HEMATOCRIT 35.2 % (42.0-52.0); HEMOGLOBIN 11.5 g/dl (13.5-17.5); MEAN CORPUSCULAR HEMOGLOBIN 34.1 pg (27.0-33.0); MEAN CORPUSCULAR HGB CONC 32.7 g/dl (32.0-36.5); MEAN CORPUSCULAR VOLUME 104.5 fl (80.0-96.0); PLATELET COUNT, AUTOMATED 292 10^3/uL (150-450); RED BLOOD COUNT 3.37 10^6/uL (4.30-6.10); WHITE BLOOD COUNT 5.8 10^3/uL (4.0-10.0)
[2024-05-18 18:25] LABS: ERYTHROCYTE SEDIMENTATION RATE 24 mm/hr (0-20)
[2024-05-18 19:02] LABS: ALBUMIN 3.5 G/DL (3.2-5.2); ALKALINE PHOSPHATASE 112 U/L (40-129); ALT/SGPT < 9 U/L (7.0-40); AST/SGOT < 8 U/L (<34); BILIRUBIN,TOTAL 0.6 MG/DL (0.3-1.2); BLOOD UREA NITROGEN 26 MG/DL (9-23); C REACTIVE PROTEIN QUANTITATIV 3.54 MG/DL (<1.0); CALCIUM LEVEL 9.1 MG/DL (8.3-10.6); CARBON DIOXIDE LEVEL 29 MMOL/L (20-31); CHLORIDE LEVEL 104 MMOL/L (98-107); CREATININE FOR GFR 0.75 MG/DL (0.70-1.30); GLOMERULAR FILTRATION RATE > 60.0 (>35); GLUCOSE, FASTING 93 MG/DL (74-106); POTASSIUM SERUM 4.2 MMOL/L (3.5-5.1); SODIUM LEVEL 142 MMOL/L (136-145); TOTAL PROTEIN 6.5 G/DL (5.7-8.2)
== END ==
LOC: M LABDRWAD 17:15
PROVIDERS: ATTEND Internal Medicine Rheumatology
DX: M06.09 Rheumatoid arthritis without rheumatoid factor, multiple sites (principal)

== ENCOUNTER 2024-06-03 12:06 | Outpatient (CLI) | payer MEDICARE, BC ==
[~2024-06-03] VITALS: Ht 175.3 cm; Wt 67.5 kg
[~2024-06-03 12:06] MED LIST changes: +ALBUTEROL SULFATE 2.5MG/0.5ML INH NEB SOLN INH PRN; +EPINEPHrine INJ 1 MG/ML 1ML AMP IM PRN; +diphenhydrAMINE 50MG/ML VIAL IV PRN; +methylPREDNISolone 125MG 2ML VIAL IV PRN
[2024-06-03 12:20] VITALS: BP 142/71; TEMP 97.8; O2SAT 98
[2024-06-03] MEDS: diphenhydrAMINE 50MG PO PRIOR TO INFUSION PO ONE (12:23)
[2024-06-03] MEDS: methylPREDNISolone 40MG 1ML VIAL IV ONE (12:23)
[2024-06-03] MEDS: ACETAMINOPHEN 650MG ER TAB (TYLENOL ARTHRITIS) PO ONE (12:23)
[2024-06-03] MEDS: riTUXimab 1,000 MG in NS (Normal Saline) 0.9% 900 ML IV ONE (12:59)
[2024-06-03 13:30] VITALS: BP_SYST 150; BP_SYST 151; BP_DIAS 77; BP_DIAS 83; TEMP 97.6; O2SAT 96; O2SAT 98
[2024-06-03 14:00] VITALS: BP_SYST 152; BP_SYST 161; BP_DIAS 68; BP_DIAS 79; TEMP 97.8; O2SAT 97; O2SAT 98
[2024-06-03 14:30] VITALS: BP 144/89; O2SAT 97
[2024-06-03 14:58] VITALS: BP 134/63; O2SAT 96
[2024-06-03 17:15] VITALS: BP 162/74; O2SAT 98
== END 2024-06-03 17:15 | disposition home or self-care (01) ==
LOC: M INFU 12:06
PROVIDERS: ATTEND Internal Medicine Rheumatology
DX: M06.09 Rheumatoid arthritis without rheumatoid factor, multiple sites (principal)
CPT/HCPCS: 96375; 96413; 96415; J2919; J9312

== ENCOUNTER 2024-06-17 12:30 | Outpatient (CLI) | payer MEDICARE, BC ==
[~2024-06-17] VITALS: Ht 175.3 cm; Wt 67.5 kg
[~2024-06-17 12:30] MED LIST changes: +NS (Normal Saline) 0.9% 1,000 ML IV SCH
[2024-06-17 12:35] VITALS: BP 148/82; O2SAT 96
[2024-06-17] MEDS ORDERED: methylPREDNISolone 40MG 1ML VIAL As Ordered ONE (13:03)
[2024-06-17] MEDS: methylPREDNISolone 40MG 1ML VIAL IV ONE (13:05)
[2024-06-17] MEDS: ACETAMINOPHEN 650MG ER TAB (TYLENOL ARTHRITIS) PO ONE (13:05)
[2024-06-17] MEDS: diphenhydrAMINE 50MG CAP PO ONE (13:05)
[2024-06-17] MEDS: riTUXimab 1,000 MG in NS (Normal Saline) 0.9% 900 ML IV ONE (13:39)
[2024-06-17 14:30] VITALS: BP 167/81; O2SAT 97
[2024-06-17 15:00] VITALS: BP 158/79; O2SAT 97
[2024-06-17 15:30] VITALS: BP 144/77; O2SAT 95
[2024-06-17 17:26] VITALS: BP 176/80; O2SAT 99
== END 2024-06-17 17:35 | disposition home or self-care (01) ==
LOC: M INFU 12:30
PROVIDERS: ATTEND Internal Medicine Rheumatology
DX: M06.09 Rheumatoid arthritis without rheumatoid factor, multiple sites (principal)
CPT/HCPCS: 96375; 96413; 96415; J2919; J9312

== ENCOUNTER → 2024-07-06 | Outpatient (REF) | payer MEDICARE, BC ==
[~2024-07-06] MED LIST changes: -ALBUTEROL SULFATE 2.5MG/0.5ML INH NEB SOLN INH PRN; -EPINEPHrine INJ 1 MG/ML 1ML AMP IM PRN; -NS (Normal Saline) 0.9% 1,000 ML IV SCH; -diphenhydrAMINE 50MG/ML VIAL IV PRN; -methylPREDNISolone 125MG 2ML VIAL IV PRN
[2024-07-06 17:41] LABS: HEMATOCRIT 39.4 % (42.0-52.0); HEMOGLOBIN 12.4 g/dl (13.5-17.5); MEAN CORPUSCULAR HEMOGLOBIN 32.5 pg (27.0-33.0); MEAN CORPUSCULAR HGB CONC 31.5 g/dl (32.0-36.5); MEAN CORPUSCULAR VOLUME 103.4 fl (80.0-96.0); PLATELET COUNT, AUTOMATED 312 10^3/uL (150-450); RED BLOOD COUNT 3.81 10^6/uL (4.30-6.10)
[2024-07-06 17:46] LABS: THYROID STIMULATING HORMONE 1.178 uIU/ML (0.55-4.78)
[2024-07-06 17:47] LABS: FREE T4 1.13 NG/DL (0.89-1.76)
[2024-07-06 17:48] LABS: ALBUMIN 3.6 G/DL (3.2-5.2); ALKALINE PHOSPHATASE 107 U/L (40-129); ALT/SGPT < 9 U/L (7.0-40); AST/SGOT < 8 U/L (<34); BILIRUBIN,TOTAL 0.5 MG/DL (0.3-1.2); BLOOD UREA NITROGEN 20 MG/DL (9-23); CALCIUM LEVEL 9.2 MG/DL (8.3-10.6); CARBON DIOXIDE LEVEL 32 MMOL/L (20-31); CHLORIDE LEVEL 104 MMOL/L (98-107); CHOLESTEROL LEVEL 216 MG/DL (<200); CHOLESTEROL RISK RATIO 2.85 (<5); CREATININE FOR GFR 0.85 MG/DL (0.70-1.30); GLOMERULAR FILTRATION RATE > 60.0 (>35); GLUCOSE, FASTING 99 MG/DL (74-106); HDL CHOLESTEROL 75.7 MG/DL (>40); LDL CHOLESTEROL 124.9 MG/DL (<100); NON-HDL-C 140.3 MG/DL; POTASSIUM SERUM 4.3 MMOL/L (3.5-5.1); SODIUM LEVEL 141 MMOL/L (136-145); TOTAL PROTEIN 6.7 G/DL (5.7-8.2); TRIGLYCERIDES LEVEL 77 MG/DL (<150)
[2024-07-06 17:56] LABS: HEMOGLOBIN A1c 5.1 % (4.0-6.0)
== END ==
LOC: M SFHCADAM 14:11
PROVIDERS: ATTEND Family Medicine
DX: E78.5 Hyperlipidemia, unspecified (principal); E03.9 Hypothyroidism, unspecified; Z79.899 Other long term (current) drug therapy; Z79.52 Long term (current) use of systemic steroids

== ENCOUNTER 2024-08-30 15:11 | Emergency (ER) | payer MEDICARE, BC ==
[~2024-08-30] VITALS: Ht 175.3 cm; Wt 67.5 kg
[~2024-08-30 15:11] MED LIST changes: +PRED-1142 PO; -PRED1TABL PO
[2024-08-30 17:30] VITALS: BP 178/90; TEMP 97.5; O2SAT 99
== END 2024-08-30 17:33 | disposition home or self-care (01) ==
LOC: M ED 15:11
DX: S01.81XA Laceration without foreign body of other part of head, initial encounter (principal); W18.30XA Fall on same level, unspecified, initial encounter; Y92.002 Bathroom of unspecified non-institutional (private) residence as the place of occurrence of the external cause; Y93.89 Activity, other specified; Y99.9 Unspecified external cause status; G20.C Parkinsonism, unspecified; N40.0 Benign prostatic hyperplasia without lower urinary tract symptoms; E78.5 Hyperlipidemia, unspecified; M85.88 Other specified disorders of bone density and structure, other site; Z79.899 Other long term (current) drug therapy

== ENCOUNTER → 2024-11-17 | Outpatient (REF) | payer MEDICARE, BC ==
[2024-11-17 13:25] LABS: BASO # 0.0 10^3/uL (0.0-0.2); BASO % 0.4 % (0.0-1.0); EOS # 0.1 10^3/uL (0.0-0.5); EOS % 1.9 % (0.0-3.0); LYMPH # 0.7 10^3/uL (1.5-5.0); LYMPH % 11.4 % (24.0-44.0); MONO # 0.6 10^3/uL (0.0-0.8); MONO % 10.4 % (2.0-8.0); NEUTROPHILS # 4.3 10^3/uL (1.5-8.5); NEUTROPHILS % 75.2 % (36.0-66.0); PLATELET COUNT, AUTOMATED 304 10^3/uL (150-450)
[2024-11-17 13:37] LABS: ERYTHROCYTE SEDIMENTATION RATE 19 mm/hr (0-20)
[2024-11-17 15:04] LABS: ALT/SGPT < 9 U/L (7.0-40); AST/SGOT 11 U/L (<34); C REACTIVE PROTEIN QUANTITATIV 2.98 MG/DL (<1.0); CALCIUM LEVEL 8.9 MG/DL (8.3-10.6); CARBON DIOXIDE LEVEL 29 MMOL/L (20-31); CHLORIDE LEVEL 103 MMOL/L (98-107); CREATININE FOR GFR 0.94 MG/DL (0.70-1.30); GLOMERULAR FILTRATION RATE 82.0 (>35); POTASSIUM SERUM 3.9 MMOL/L (3.5-5.1); SODIUM LEVEL 143 MMOL/L (136-145)
== END ==
LOC: M SFHCADAM 08:48
PROVIDERS: ATTEND Internal Medicine Rheumatology
DX: M06.09 Rheumatoid arthritis without rheumatoid factor, multiple sites (principal)

== ENCOUNTER → 2025-01-16 | Outpatient (REF) | payer MEDICARE, BC ==
[2025-01-16 17:47] LABS: PLATELET COUNT, AUTOMATED 263 10^3/uL (150-450)
[2025-01-16 17:50] LABS: APPEARANCE, URINE CLEAR (CLEAR); BACTERIA, URINE AUTO NEGATIVE (NEGATIVE); BILIRUBIN, URINE AUTO NEGATIVE (NEGATIVE); BLOOD, URINE BLOOD NEGATIVE (NEGATIVE); GLUCOSE, URINE (UA) AUTO NEGATIVE (NEGATIVE); KETONE, URINE AUTO TRACE mg/dL (NEGATIVE); LEUKOCYTE ESTERASE, URINE AUTO NEGATIVE (NEGATIVE); MUCUS, URINE SMALL (NEGATIVE); NITRITE, URINE AUTO NEGATIVE (NEGATIVE); PROTEIN, URINE AUTO NEGATIVE (NEGATIVE); RBC, URINE AUTO 0 /HPF (0-3); SPECIFIC GRAVITY URINE AUTO 1.024 (1.002-1.035); SQUAMOUS EPITHELIAL CELL UR AU 0 /HPF (0-6); UROBILINOGEN, URINE AUTO 2.0 mg/dL (0.0-2.0); WBC, URINE AUTO 1 /HPF (0-3)
[2025-01-16 18:04] LABS: ALT/SGPT < 9 U/L (7.0-40); AST/SGOT 10 U/L (<34); C REACTIVE PROTEIN QUANTITATIV 1.75 MG/DL (<1.0); CALCIUM LEVEL 8.9 MG/DL (8.3-10.6); CARBON DIOXIDE LEVEL 32 MMOL/L (20-31); CHLORIDE LEVEL 101 MMOL/L (98-107); CREATININE FOR GFR 0.80 MG/DL (0.70-1.30); GLOMERULAR FILTRATION RATE 88.9 (>35); POTASSIUM SERUM 4.4 MMOL/L (3.5-5.1); SODIUM LEVEL 140 MMOL/L (136-145)
[2025-01-16 18:05] LABS: FREE T4 1.10 NG/DL (0.89-1.76)
[2025-01-16 18:40] LABS: ESTIMATED AVERAGE GLUCOSE 97.0 MG/DL (60-110)
== END ==
LOC: M SFHCCLAY 14:48
DX: R42 Dizziness and giddiness (principal); Z79.52 Long term (current) use of systemic steroids; E03.9 Hypothyroidism, unspecified; R79.82 Elevated C-reactive protein (CRP); Z79.899 Other long term (current) drug therapy

== ENCOUNTER 2025-03-02 13:39 | Outpatient (RCR) | payer MEDICARE, BC ==
[2025-03-14] MEDS ORDERED: PRED5TA (15:46)
== END 2025-03-12 ==
LOC: M ST 13:39
PROVIDERS: ATTEND Family Medicine
DX: G20.B2 Parkinson's disease with dyskinesia, with fluctuations (principal); R47.89 Other speech disturbances

== ENCOUNTER → 2025-03-14 | Outpatient (CLI) | payer MEDICARE, BC ==
[~2025-03-14] MED LIST changes: +PRED5TA
== END ==
LOC: M ONCR 15:05
PROVIDERS: ATTEND General Practice
DX: C44.42 Squamous cell carcinoma of skin of scalp and neck (principal); C44.329 Squamous cell carcinoma of skin of other parts of face; M06.9 Rheumatoid arthritis, unspecified; G20.C Parkinsonism, unspecified; Z79.899 Other long term (current) drug therapy

== ENCOUNTER 2025-03-29 12:43 | Outpatient (CLI) | payer MEDICARE, BC ==
[~2025-03-29] VITALS: Ht 172.7 cm; Wt 68.2 kg
[~2025-03-29 12:43] MED LIST changes: +ALBUTEROL SULFATE 2.5 MG/0.5 ML INH CONCENTRATE NEB SOLN INH PRN; +EPINEPHrine INJ 1 MG/ML 1ML AMP IM PRN; +diphenhydrAMINE 50 MG/ML VIAL IV PRN
[2025-03-29] MEDS ORDERED: NS 0.9% IV ONE (13:00)
[2025-03-29] MEDS ORDERED: RITUXIMAB IV ONE (13:00)
[2025-03-29 13:10] VITALS: BP 133/70; O2SAT 96
[2025-03-29] MEDS: ACETAMINOPHEN 650 MG ER TAB PO ONE (13:40)
[2025-03-29] MEDS: riTUXimab 1,000 MG in NS (Normal Saline) 0.9% 900 ML IV ONE (13:56)
[2025-03-29 14:30] VITALS: BP 140/68; O2SAT 98
[2025-03-29 15:30] VITALS: BP 157/81; O2SAT 99
[2025-03-29 16:30] VITALS: BP 150/72; O2SAT 97
[2025-03-29 17:42] VITALS: BP 178/83; O2SAT 99
[2025-03-29 18:15] VITALS: BP 168/85; O2SAT 99
== END 2025-03-29 18:15 | disposition home or self-care (01) ==
LOC: M INFU 12:43
PROVIDERS: ATTEND Internal Medicine Rheumatology
DX: M06.09 Rheumatoid arthritis without rheumatoid factor, multiple sites (principal)
CPT/HCPCS: 96375; 96413; 96415; J2919; J9312

== ENCOUNTER 2025-04-11 12:37 | Outpatient (RCR) | payer MEDICARE, BC ==
[~2025-04-11 12:37] MED LIST changes: -ALBUTEROL SULFATE 2.5 MG/0.5 ML INH CONCENTRATE NEB SOLN INH PRN; -EPINEPHrine INJ 1 MG/ML 1ML AMP IM PRN; -diphenhydrAMINE 50 MG/ML VIAL IV PRN
== END 2025-04-12 ==
LOC: M ONCR 12:37
PROVIDERS: ATTEND General Practice
DX: Z51.0 Encounter for antineoplastic radiation therapy (principal); C84.09 Mycosis fungoides, extranodal and solid organ sites

== ENCOUNTER 2025-04-12 08:24 | Outpatient (CLI) | payer MEDICARE, BC ==
[~2025-04-12] VITALS: Ht 167.6 cm; Wt 72.7 kg
[~2025-04-12 08:24] MED LIST changes: +ALBUTEROL SULFATE 2.5 MG/0.5 ML INH CONCENTRATE NEB SOLN INH PRN; -AMAN100T PO; +EPINEPHrine INJ 1 MG/ML 1ML AMP IM PRN; +[UNRECOGNIZED DRUG - CODE] PO; +diphenhydrAMINE 50 MG/ML VIAL IV PRN
[2025-04-12 08:30] VITALS: BP 120/58; O2SAT 96
[2025-04-12] MEDS ORDERED: NS (Normal Saline) 0.9% 1,000 ML IV SCH (08:30)
[2025-04-12] MEDS ORDERED: RITUXIMAB IV ONE (08:30)
[2025-04-12] MEDS ORDERED: NS 0.9% IV ONE (08:30)
[2025-04-12] MEDS: ACETAMINOPHEN 650 MG ER TAB PO ONE (08:42)
[2025-04-12] MEDS: riTUXimab 1,000 MG in NS (Normal Saline) 0.9% 900 ML IV ONE (09:23)
[2025-04-12 10:00] VITALS: BP 123/64; O2SAT 97
[2025-04-12 11:00] VITALS: BP 130/70; O2SAT 97
[2025-04-12 11:30] VITALS: BP 133/79; O2SAT 97
[2025-04-12 12:00] VITALS: BP 129/74; O2SAT 97
[2025-04-12 13:14] VITALS: BP 135/66; O2SAT 97
== END 2025-04-12 13:05 | disposition home or self-care (01) ==
LOC: M INFU 08:24
PROVIDERS: ATTEND Internal Medicine Rheumatology
DX: M06.09 Rheumatoid arthritis without rheumatoid factor, multiple sites (principal)
CPT/HCPCS: 96375; 96413; 96415; J2919; J9312